=== PATIENT | male | born 1960 | race African-American/Black ===

== ENCOUNTER 2018-12-03 10:04 | Emergency (ER) | payer SELFPAY ==
[~2018-12-03] VITALS: Ht 190.5 cm; Wt 120.2 kg
[~2018-12-03 10:04] MED LIST: AMOX500C2 PO; BIPOLAR MEDS; BNZT2T; BUSP10TA95 PO; BUSPAR; CITA20TA12 PO; DIVA-20; DIVA500T15 PO; GEODON; HYDR-1231 PO; HYDR-34 PO; HYDR-757 PO; HYDR1TAB PO; HYDR1TAB8 OP; HYDR25CA PO; HYDR25CA5 PO; HYDR480S10 GT; IBUP800T26 PO; LORA0.5T; MAGIC1 PO; MOXI400T3 PO; ONDA4TAB11 PO; OXYC-12 PO; OXYC10TA63 PO; PRD20T PO; QTP100T; QUET150T PO; QUET300T3 PO; QUET300T5 PO; SEROQUEL; SIMV10TA3; SULF-222 PO; TRAZ150T42; TRIH2TAB2
--- OUTSIDE RECORDS SUMMARY | 2018-12-03 10:23 | XMS REPORT ---
Author CARLOS A Jerome Organization eClinicalWorks Address Unknown Phone Unavailable Care Team Providers Care Director Workforce Management Name Role Phone CARLOS A PARIS CP Unavailable Allergies No Known Allergies Problems Problem Type Condition Code Onset Dates Condition Status Problem Cellulitis and abscess of unspecified site 682.9 Active Problem Lumbago 724.2 Active Problem Unspecified episodic mood disorder 296.90 Active Medications Medication Code System Code Instructions Start Date End Date Status Dosage Seroquel [facility] [address]-32 300 MG Orally Once a day Apr 23, 2015 1 tablet at bedtime Results No Known Results Summary Purpose eClinicalWorks Submission
--- OUTSIDE RECORDS SUMMARY | 2018-12-03 10:23 | XMS REPORT ---
Author BUD Gustafson [facility] eClinicalWorks Address Unknown Phone Unavailable Care Team Providers Care Trim Machine Operator Name Role Phone BUD WILSON Unavailable Allergies No Known Allergies Problems Problem Type Condition Code Onset Dates Condition Status Problem Depression F32.9 Active Problem Corns L84 Active Problem Anxiety F41.9 Active Problem Back pain M54.9 Active Medications Medication Code System Code Instructions Start Date End Date Status Dosage Tamsulosin HCl [facility] [address]-76 0.4 MG Orally Once a day September 16, 2015 1 capsule 30 minutes after the same meal each day Results No Known Results Summary Purpose eClinicalWorks Submission
--- OUTSIDE RECORDS SUMMARY | 2018-12-03 10:23 | XMS REPORT ---
Author CARLOS A Jerome Organization eClinicalWorks Address Unknown Phone Unavailable Care Team Providers Care Staff Weapons Officer Name Role Phone CARLOS A PARIS CP Unavailable Allergies, Adverse Reactions, Alerts Substance Reaction Event Type N.K.D.A. Info Not Available Non Drug Allergy Problems Problem Type Condition Code Onset Dates Condition Status Problem Cellulitis and abscess of unspecified site 682.9 Active Problem Lumbago 724.2 Active Problem Unspecified episodic mood disorder 296.90 Active Assessment Sciatica, unspecified side M54.30 Active Assessment Anxiety F41.9 Active Assessment Low back pain M54.5 Active Medications Medication Code System Code Instructions Start Date End Date Status Dosage Seroquel [facility] [address]-46 300 MG Orally Twice a day Jun 24, 2015 1 tablet Naproxen [facility] [address]-77 500 MG Orally every 12 hrs Jun 24, 2015 1 tablet as needed Procedures Procedure Coding System Code Date Office Visit, Est Pt., Level 3 CPT-4 84568 Jun 24, 2015 Vital Signs Date/Time: Jun 24, 2015 Temperature 97.3 F Weight 220.2 lbs Height 75 in BMI 27.52 Index Blood Pressure Diastolic 60 mmHg Blood Pressure Systolic 122 mmHg Cardiac Monitoring Heart Rate 80 bpm Results No Known Results Summary Purpose eClinicalWorks Submission
--- OUTSIDE RECORDS SUMMARY | 2018-12-03 10:23 | XMS REPORT ---
Author CARLOS A Jerome Organization eClinicalWorks Address Unknown Phone Unavailable Care Team Providers Care Electric Power Line Examiner Name Role Phone CARLOS A PARIS CP Unavailable Allergies No Known Allergies Problems Problem Type Condition Code Onset Dates Condition Status Problem Cellulitis and abscess of unspecified site 682.9 Active Problem Lumbago 724.2 Active Problem Unspecified episodic mood disorder 296.90 Active Medications No Known Medications Results No Known Results Summary Purpose eClinicalWemoLab Submission
--- OUTSIDE RECORDS SUMMARY | 2018-12-03 10:23 | XMS REPORT ---
Author Author CARLOS A PARIS Organization eClinicalWorks Address Unknown Phone Unavailable Care Team Providers Care Dressing Room Porter Name Role Phone CARLOS A PARIS CP Unavailable Allergies No Known Allergies Problems Problem Type Condition Code Onset Dates Condition Status Problem Cellulitis and abscess of unspecified site 682.9 Active Problem Lumbago 724.2 Active Problem Unspecified episodic mood disorder 296.90 Active Medications No Known Medications Results No Known Results Summary Purpose eClinicalWorks Submission
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
--- OUTSIDE RECORDS SUMMARY | 2018-12-03 10:24 | XMS REPORT ---
Author Author Migration, Doctor Organization [facility] Address Unknown Phone Unavailable Care Team Providers Care Quill Machine Operator Name Role Phone Migration, Doctor Unavailable Unavailable PROBLEMS Type Condition ICD9-CM Code [id number] Code Onset Dates Condition Status SNOMED Code Problem Back pain M54.9 Active 033167989 Problem Corns L84 Active 040304226 Problem Depression F32.9 Active 25385243 Problem Mood disorder F39 Active 07410584 Problem Mixed hyperlipidemia E78.2 Active 177210691 Problem Anxiety F41.9 Active 70818966 Problem Abscess L02.91 Active 696061724 Problem Slow transit constipation K59.01 Active 76535358 Problem GERD with esophagitis K21.0 Active 931140204 ALLERGIES No Information ENCOUNTERS Encounter Location Date Diagnosis [place] [id number] [place] [address] Aug, [facility] [address] [address] Aug, Mixed hyperlipidemia E78.2 and Mood disorder F39 [facility] [id number] [place] [address] Aug, Mixed hyperlipidemia E78.2 ; GERD with esophagitis K21.0 ; Mood disorder F39 and Abscess of axilla, right L02.411 [facility] [address] [address] Jul, Injury of toe on right foot, initial encounter S99.921A [place] [place] [id number] May, Slow transit constipation K59.01 ; Bilateral headaches R51 and Screen for STD (sexually transmitted disease) Z11.3 [facility] [address] [place] [id number] May, Injury of toe on right foot, initial encounter S99.921A ; Unspecified injury of head, sequela S09.90XS ; Post-traumatic headache, unspecified, not intractable G44.309 and Slow transit constipation K59.01 [place] [address] [address] May, Toe pain, right M79.674 [place] [address] [address] May, Back pain M54.9 ; Depression F32.9 and Anxiety F41.9 [place] [address] [address] Mar, [facility] [address] [place] [id number] Dec, Low back pain M54.5 and Other chronic pain G89.[address] [address] September, [place] or callus L84 ; Onychomycosis B35.1 ; Metatarsalgia, right foot M77.41 and Metatarsalgia of left foot M77.42 [place] [address] [address] Aug, Abscess L02.[address] [address] Aug, [place] [address] [address] Aug, Adenopathy R59.1 ; Depression F32.9 ; Anxiety F41.9 and Back pain M54.9 [place] [id number] [place] [address] Jul, [place] [address] [address] Jul, Anxiety F41.9 ; Depression F32.9 ; Corns L84 and Back pain M54.9 [place] [address] [address] Jul, [facility] [address] [address] Jul, [facility] [id number] [place] [address] May, [facility] [id number] [place] [address] May, Anxiety F41.9 ; Low back pain M54.5 and Sciatica, unspecified side M54.30 [facility] [id number] [place] [address] Mar, [facility] [id number] [place] [address] Mar, [facility] [id number] [place] [address] Mar, [facility] [address] [place] [id number] Feb, Anxiety F41.9 and Cutaneous abscess, unspecified L02.91 [facility] [address] [place] [address] Feb, [facility] [id number] [place] [address] Feb, [facility] [address] [place] [id number] Jan, Chest pain 786.50 ; Hypotension 458.9 and Cardiac arrhythmia 427.9 [facility] [address] [place] [address] Dec, Neuropathy 355.9 and Anxiety 300.00 [facility] [address] [address] Aug, [facility] [id number] [place] [address] Aug, [facility] [address] [address] Jul, [facility] [id number] [address] Jul, [facility] [address] [facility] [id number] [address] Jul, [facility] [address] [facility] [id number] [address] Jul, [facility] [address] [facility] [id number] [address] September, [place] [address] [place] [place] [id number] September, [place] [address] [address] [place] [id number] Aug, IMMUNIZATIONS No Known Immunizations SOCIAL HISTORY Never Assessed REASON FOR VISIT [facility]MR[facility] PLAN OF CARE VITAL SIGNS MEDICATIONS Unknown Medications RESULTS No Results PROCEDURES No Known procedures [...]
--- OUTSIDE RECORDS SUMMARY | 2018-12-03 10:25 | XMS REPORT ---
Author Author CARLOS A PARIS [facility] Address [address] [place] [address] Care Team Providers Care Billet Straightener Name Role Phone CARLOS A PARIS Unavailable PROBLEMS Type Condition ICD9-CM Code [id number] Code Onset Dates Condition Status SNOMED Code Problem Slow transit constipation K59.01 Active 27058391 Problem Abscess L02.91 Active 187081891 Problem Depression F32.9 Active 64168380 Problem Back pain M54.9 Active 313514219 Problem Corns L84 Active 436555421 Problem Anxiety F41.9 Active 38050670 ALLERGIES Unknown Allergies SOCIAL HISTORY No smoking Hx information available PLAN OF CARE VITAL SIGNS MEDICATIONS Unknown Medications RESULTS No Results PROCEDURES No Known procedures IMMUNIZATIONS No Known Immunizations
--- OUTSIDE RECORDS SUMMARY | 2018-12-03 10:25 | XMS REPORT ---
Author Author BUD WILSON [facility] eClinicalWorks Address Unknown Phone Unavailable Care Team Providers Care Vice President Of Software Development Name Role Phone BUD WILSON Unavailable Allergies No Known Allergies Problems Problem Type Condition Code Onset Dates Condition Status Problem Anxiety F41.9 Active Problem Depression F32.9 Active Problem Abscess L02.91 Active Problem Corns L84 Active Problem Back pain M54.9 Active Medications No Known Medications Results No Known Results Summary Purpose eClinicalWorks Submission
--- OUTSIDE RECORDS SUMMARY | 2018-12-03 10:25 | XMS REPORT ---
Author CARLOS A Jerome Organization eClinicalWorks Address Unknown Phone Unavailable Care Team Providers Care Beam Press Operator Name Role Phone CARLOS A PARIS CP Unavailable Allergies No Known Allergies Problems Problem Type Condition Code Onset Dates Condition Status Problem Cellulitis and abscess of unspecified site 682.9 Active Problem Lumbago 724.2 Active Problem Unspecified episodic mood disorder 296.90 Active Medications Medication Code System Code Instructions Start Date End Date Status Dosage Hydrocortisone [facility] [address]-20 1 % Externally Twice a day Mar 05, 2015 1 application to affected area Results No Known Results Summary Purpose eClinicalWorks Submission
--- OUTSIDE RECORDS SUMMARY | 2018-12-03 10:25 | XMS REPORT ---
Author CARLOS A Jerome Organization eClinicalWorks Address Unknown Phone Unavailable Care Team Providers Care Helper Animal Laboratory Name Role Phone CARLOS A PARIS CP Unavailable Allergies No Known Allergies Problems Problem Type Condition ICD-9 Code Onset Dates Condition Status Problem Cellulitis and abscess of unspecified site 682.9 Active Problem Lumbago 724.2 Active Problem Unspecified episodic mood disorder 296.90 Active Assessment Cardiac arrhythmia 427.9 Active Assessment Chest pain 786.50 Active Assessment Hypotension 458.9 Active Medications No Known Medications Procedures Procedure Coding System Code Date Office Visit, Est Pt., Level 2 CPT-4 45566 Feb 19, 2015 Vital Signs Date/Time: Feb 19, 2015 BMI 24.50 Index Weight 196 lbs Height 75 in Results No Known Results Summary Purpose eClinicalWorks Submission
--- OUTSIDE RECORDS SUMMARY | 2018-12-03 10:25 | XMS REPORT ---
Author BUD Gustafson [facility] eClinicalWorks Address Unknown Phone Unavailable Care Team Providers Care Peoplesoft Hr Developer Name Role Phone BUD WILSON CP Unavailable Allergies, Adverse Reactions, Alerts Substance Reaction Event Type N.K.D.A. Info Not Available Non Drug Allergy Problems Problem Type Condition Code Onset Dates Condition Status Assessment Back pain M54.9 Active Problem Depression F32.9 Active Problem Corns L84 Active Problem Anxiety F41.9 Active Assessment Depression F32.9 Active Assessment Anxiety F41.9 Active Problem Back pain M54.9 Active Assessment Adenopathy R59.1 Active Medications Medication Code System Code Instructions Start Date End Date Status Dosage Nabumetone [facility] [address]-15 500 MG Orally Twice a day August 15, 2015 1 tablet Keflex [facility] [address]-31 500 MG Orally 3 times a day September 13, 2015 September 23, 2015 1 capsule BusPIRone HCl [facility] [address]-17 10 mg Orally Twice a day 1 tablet Seroquel [facility] [address]-90 300 MG Orally Twice a day Jun 24, 2015 1 tablet Procedures Procedure Coding System Code Date Office Visit, Est Pt., Level 4 CPT-4 96274 September 13, 2015 Vital Signs Date/Time: September 13, 2015 Temperature 98.1 F Weight 208.0 lbs Height 75 in BMI 26.00 Index Blood Pressure Diastolic 76 mmHg Blood Pressure Systolic 140 mmHg Cardiac Monitoring Heart Rate 88 bpm Results No Known Results Summary Purpose eClinicalWorks Submission
--- OUTSIDE RECORDS SUMMARY | 2018-12-03 10:26 | XMS REPORT ---
Author CARLOS A Jerome Organization eClinicalWorks Address Unknown Phone Unavailable Care Team Providers Care Field Sales Executive Name Role Phone CARLOS A PARIS CP Unavailable Allergies, Adverse Reactions, Alerts Substance Reaction Event Type N.K.D.A. Info Not Available Non Drug Allergy Problems Problem Type Condition ICD-9 Code Onset Dates Condition Status Problem Cellulitis and abscess of unspecified site 682.9 Active Problem Lumbago 724.2 Active Problem Unspecified episodic mood disorder 296.90 Active Assessment Neuropathy 355.9 Active Assessment Anxiety 300.00 Active Medications Medication Code System Code Instructions Start Date End Date Status Dosage Neurontin [facility] [address]-32 100 MG Orally Three times a day Jan 18, 2015 as directed Ativan [facility] [address]-51 0.5 MG Orally Twice a day Jan 18, 2015 1 tablet as needed Seroquel XR [facility] [address]-07 300 MG Orally Once a day 1 tablet in the evening Procedures Procedure Coding System Code Date Office Visit, Est Pt., Level 3 CPT-4 60453 Jan 18, 2015 Vital Signs Date/Time: Jan 18, 2015 Temperature 97.7 F Weight 199.5 lbs Height 75 in BMI 24.93 Index Blood Pressure Diastolic 80 mmHg Blood Pressure Systolic 112 mmHg Cardiac Monitoring Heart Rate 88 bpm Results No Known Results Summary Purpose eClinicalWorks Submission
--- OUTSIDE RECORDS SUMMARY | 2018-12-03 10:26 | XMS REPORT ---
Author Author CARLOS A PARIS Organization [facility] Address [address] [place] [address] Care Team Providers Care Attorney Name Role Phone CARLOS A PARIS Unavailable PROBLEMS Type Condition ICD9-CM Code HUN05-AQ Code Onset Dates Condition Status SNOMED Code Problem Slow transit constipation K59.01 Active 91637105 Problem Abscess L02.91 Active 263207110 Problem Depression F32.9 Active 74885164 Problem Back pain M54.9 Active 912035918 Problem Corns L84 Active 182446757 Problem Anxiety F41.9 Active 39047978 ALLERGIES No Information SOCIAL HISTORY Never Assessed PLAN OF CARE VITAL SIGNS MEDICATIONS Unknown Medications RESULTS Name Result Date Reference Range Xray : Foot, Right 3 views (IN HOUSE) 2016-07-16 PROCEDURES Procedure Date Ordered Result Body Site X-RAY EXAM OF FOOT Jul 16, 2016 IMMUNIZATIONS No Known Immunizations MEDICAL (GENERAL) HISTORY Type Description Date Medical [...]
--- OUTSIDE RECORDS SUMMARY | 2018-12-03 10:26 | XMS REPORT ---
Author Author CARLOS A PARIS Organization [facility] Address [address] [place] [address] Care Team Providers Care Warranty Administrator Name Role Phone CARLOS A PARIS Unavailable PROBLEMS Type Condition ICD9-CM Code AUZ49-CW Code Onset Dates Condition Status SNOMED Code Problem Slow transit constipation K59.01 Active 41038649 Problem Abscess L02.91 Active 875700391 Problem Depression F32.9 Active 02258268 Problem Back pain M54.9 Active 720984792 Problem Corns L84 Active 861207850 Problem Anxiety F41.9 Active 66939755 ALLERGIES Unknown Allergies SOCIAL HISTORY No smoking Hx information available PLAN OF CARE Activity Details Pending Test HEP C ANTIBODY (STATE) VITAL SIGNS Height 75 in 2016-06-30 Weight 191 lbs 2016-06-30 Heart Rate 80 bpm 2016-06-30 Respiratory Rate 16 2016-06-30 BMI 23.87 kg/m2 2016-06-30 Blood pressure systolic 110 mmHg 2016-06-30 Blood pressure diastolic 72 mmHg 2016-06-30 MEDICATIONS Unknown Medications RESULTS Name Result Date Reference Range HIV (STATE) 2016-06-30 HEP B SURFACE ANTIGEN (STATE) HEP B ANTIBODY HEP B ANTIBODY (RML) HEP B ANTIBODY (STATE) PROCEDURES Procedure Date Ordered Related Diagnosis Body Site Office Visit, Est Pt., Level 2 Jun 30, 2016 VENIPUNCT, ROUTINE* Jun 30, 2016 No Charge Jun 30, 2016 IMMUNIZATIONS No Known Immunizations
--- OUTSIDE RECORDS SUMMARY | 2018-12-03 10:26 | XMS REPORT ---
Author Author CARLOS A PARIS Organization [facility] Address [address] [place] [address] Care Team Providers Care Telesales Consultant Name Role Phone CARLOS A PARIS Unavailable PROBLEMS Type Condition ICD9-CM Code [id number] Code Onset Dates Condition Status SNOMED Code Problem Slow transit constipation K59.01 Active 55896319 Problem Abscess L02.91 Active 639645545 Problem Depression F32.9 Active 14825333 Problem Back pain M54.9 Active 883655704 Problem Corns L84 Active 608021898 Problem Anxiety F41.9 Active 40362331 ALLERGIES Unknown Allergies SOCIAL HISTORY No smoking Hx information available PLAN OF CARE VITAL SIGNS Height 75 in 2016-06-23 Weight 188 lbs 2016-06-23 Heart Rate 90 bpm 2016-06-23 BMI 23.50 kg/m2 2016-06-23 Blood pressure systolic 100 mmHg 2016-06-23 Blood pressure diastolic 68 mmHg 2016-06-23 MEDICATIONS Medication Instructions Dosage Frequency Start Date End Date Duration Status Colace 100 MG Orally Once a day 1 capsule as needed 24h May, Jul, 30 day(s) Active RESULTS No Results PROCEDURES Procedure Date Ordered Related Diagnosis Body Site Office Visit, Est Pt., Level 2 Jun 23, 2016 IMMUNIZATIONS No Known Immunizations
--- OUTSIDE RECORDS SUMMARY | 2018-12-03 10:26 | XMS REPORT ---
Author BUD Gustafson [facility] eClinicalWorks Address Unknown Phone Unavailable Care Team Providers Care Section Chief Name Role Phone BUD WILSON CP Unavailable Allergies, Adverse Reactions, Alerts Substance Reaction Event Type N.K.D.A. Info Not Available Non Drug Allergy Problems Problem Type Condition Code Onset Dates Condition Status Problem Anxiety F41.9 Active Problem Depression F32.9 Active Problem Abscess L02.91 Active Assessment Abscess L02.91 Active Problem Corns L84 Active Problem Back pain M54.9 Active Medications Medication Code System Code Instructions Start Date End Date Status Dosage Tamsulosin HCl [facility] [address]-99 0.4 MG Orally Once a day September 16, 2015 1 capsule 30 minutes after the same meal each day Keflex [facility] [address]-67 500 MG Orally 3 times a day September 13, 2015 September 23, 2015 1 capsule Seroquel [facility] [address]-12 300 MG Orally Twice a day Jun 24, 2015 1 tablet BusPIRone HCl [facility] [address]-04 10 mg Orally Twice a day 1 tablet Bactrim DS [facility] [address]-02 800-160 MG Orally Twice a day September 20, 2015 September 30, 2015 1 tablet Nabumetone [facility] [address]-49 500 MG Orally Twice a day August 15, 2015 1 tablet Procedures Procedure Coding System Code Date Office Visit, Est Pt., Level 3 CPT-4 97907 September 20, 2015 Vital Signs Date/Time: September 20, 2015 Temperature 97.8 F Weight 201.3 lbs Height 75 in BMI 25.16 Index Blood Pressure Diastolic 71 mmHg Blood Pressure Systolic 105 mmHg Cardiac Monitoring Heart Rate 96 bpm Results No Known Results Summary Purpose eClinicalWorks Submission
--- OUTSIDE RECORDS SUMMARY | 2018-12-03 10:26 | XMS REPORT ---
Author Author CARLOS A PARIS Organization [employer] Address Unknown Phone Unavailable Care Team Providers Care Sap Functional Analyst Name Role Phone CARLOS A PARIS CP Unavailable Allergies No Known Allergies Problems Problem Type Condition Code Onset Dates Condition Status Problem Anxiety F41.9 Active Problem Depression F32.9 Active Problem Abscess L02.91 Active Assessment Low back pain M54.5 Active Assessment Other chronic pain G89.29 Active Problem Corns L84 Active Problem Back pain M54.9 Active Medications No Known Medications Procedures Procedure Coding System Code Date Office Visit, Est Pt., Level 2 CPT-4 87481 Jan 14, 2016 Vital Signs Date/Time: Jan 14, 2016 Cardiac Monitoring Heart Rate 88 bpm Weight 195 lbs Height 75 in BMI 24.37 Index Blood Pressure Diastolic 64 mmHg Blood Pressure Systolic 116 mmHg Results No Known Results Summary Purpose eClinicalWorks Submission
--- OUTSIDE RECORDS SUMMARY | 2018-12-03 10:26 | XMS REPORT ---
Author CARLOS A Jerome Organization [employer] Address Unknown Phone Unavailable Care Team Providers Care Kick Press Operator Name Role Phone CARLOS A PARIS CP Unavailable Allergies No Known Allergies Problems Problem Type Condition Code Onset Dates Condition Status Problem Cellulitis and abscess of unspecified site 682.9 Active Problem Lumbago 724.2 Active Problem Unspecified episodic mood disorder 296.90 Active Medications No Known Medications Results No Known Results Summary Purpose eClinicalT2 Systems Submission
--- OUTSIDE RECORDS SUMMARY | 2018-12-03 10:26 | XMS REPORT ---
Author Author CARLOS A PARIS Organization [facility] Address [address] [place] [address] Care Team Providers Care Gynecological Assistant Name Role Phone CARLOS A PARIS Unavailable PROBLEMS Type Condition ICD9-CM Code [id number] Code Onset Dates Condition Status SNOMED Code Problem Slow transit constipation K59.01 Active 63072282 Problem Abscess L02.91 Active 812269210 Problem Corns L84 Active 627854134 Problem Back pain M54.9 Active 404467832 Problem Anxiety F41.9 Active 43133969 Problem Depression F32.9 Active 96419340 ALLERGIES Unknown Allergies SOCIAL HISTORY No smoking Hx information available PLAN OF CARE VITAL SIGNS MEDICATIONS Medication Instructions Dosage Frequency Start Date End Date Duration Status Nabumetone 500 MG Orally Twice a day 1 tablet 12h Jul, 2 Jul, 2016 30 day(s) Active Tamsulosin HCl 0.4 MG Orally Once a day 1 capsule 30 minutes after the same meal each day 24h Aug, Active BusPIRone HCl 10 mg Orally Twice a day 1 tablet 12h Active Seroquel 300 MG Orally Twice a day 1 tablet 12h May, Active RESULTS No Results PROCEDURES No Known procedures IMMUNIZATIONS No Known Immunizations
--- OUTSIDE RECORDS SUMMARY | 2018-12-03 10:27 | XMS REPORT | Continuity of Care Document ---
Author Organization Unknown Address Unknown Allergies Active Description Code Type Severity Reaction Onset Reported/Identified Relationship to Patient Clinical Status Yes No Known Drug Allergies [id number] Drug Allergy Mild N/A 07/29/2009 Yes No Known Allergies Drug Allergy N/A N/A 05/22/2013 Yes No Known Drug Allergies Drug Allergy N/A N/A 05/22/2013 Yes No Known Food Allergies Food Allergy N/A N/A 05/22/2013 Medications There is no data. Problems Date Dx Coded Attending Type Code Diagnosis Diagnosed By 03/23/2010 Ot 724.2 09/20/2012 296.90 MOOD DISORDER 09/20/2012 682.9 CELLULITIS AND ABSCESS OF UNSPECIFIED SITES 09/20/2012 724.2 BACK PAIN, LOWER 09/20/2012 296.90 MOOD DISORDER 09/20/2012 682.9 CELLULITIS AND ABSCESS OF UNSPECIFIED SITES 09/20/2012 724.2 BACK PAIN, LOWER 11/22/2012 Nate Mancera III, MD Final 597.80 URETHRITIS NOS 11/22/2012 Nate Mancera III, MD Admitting 788.1 DYSURIA 05/01/2013 Freddie Esparza MD Final 098.0 ACUTE LOWER GC INFECT 05/01/2013 Freddie Esparza MD Final 295.30 PARANOID SCHIZ-UNSPEC 05/01/2013 Freddie Esparza MD Final 296.80 BIPOLAR DISORDER NOS 05/01/2013 Freddie Esparza MD Final 305.1 TOBACCO USE DISORDER 05/01/2013 Freddie Esparza MD Admitting 788.7 URETHRAL DISCHARGE 05/22/2013 Colt Vaughn MD Final 305.1 TOBACCO USE DISORDER 05/22/2013 Colt Vaughn MD Final 599.0 URINARY TRACT INF NOS 05/22/2013 Colt Vaughn MD 724.2 LUMBAGO 05/22/2013 Colt Vaughn MD Admitting 789.09 ABDOMINAL PAIN-SITE NEC 02/06/2014 KEMAR GRANGER Ot 724.4 02/06/2014 NURIS POTTS KEMAR Dixon Ot 782.0 03/02/2014 BRANDON THOMAS, DAV A Ot 101 03/02/2014 BRANDON THOMAS, DAV A Ot 305.1 03/02/2014 BRANDON THOMAS, DAV A Ot 722.10 03/02/2014 BRANDON THOMAS, DAV A Ot 784.92 03/03/2014 BRANDON THOMAS, DAV A Ot 525.9 03/03/2014 BRANDON THOMAS, DAV A Ot 528.00 05/10/2014 GELLENDER DO, JOYCE A Ot 782.0 06/01/2014 GELLENDER DO, JOYCE A Ot 789.01 06/01/2014 GELLENDER DO, JOYCE A Ot 789.01 06/01/2014 GELLENDER DO, JOYCE A Ot 787.3 06/01/2014 GELLENDER DO, JOYCE A Ot 789.01 06/01/2014 GELLENDER DO, JOYCE A Ot 789.01 06/01/2014 GELLENDER DO, JOYCE A Ot 782.0 06/01/2014 MICKY LÓPEZ BANK GUARD Ot 682.3 06/01/2014 MICKY LÓPEZ BANK GUARD Ot 785.6 09/25/2014 GELLENDER DO, JOYCE A Ot 789.01 09/25/2014 GELLENDER DO, JOYCE A Ot 789.01 09/25/2014 GELLENDER DO, JOYCE A Ot 787.3 09/25/2014 GELLENDER DO, JOYCE A Ot 789.01 09/25/2014 GELLENDER DO, JOYCE A Ot 789.01 09/25/2014 GELLENDER DO, JOYCE A Ot 782.0 09/25/2014 GELLENDER DO, JOYCE A Ot 789.01 09/25/2014 GELLENDER DO, JOYCE A Ot 789.01 09/25/2014 GELLENDER DO, JOYCE A Ot 787.3 09/25/2014 GELLENDER DO, JOYCE A Ot 789.01 09/25/2014 GELLENDER DO, JOYCE A Ot 789.01 09/25/2014 GELLENDER DO, JOYCE A Ot 782.0 09/25/2014 MORA THOMAS, KANDACE Roesn Ot 296.80 09/25/2014 MORA THOMAS, KANDACE Rosen Ot 305.1 09/25/2014 MORA THOMAS, KANDACE M Ot 872.01 09/25/2014 MORA THOMAS, KANDACE M Ot 911.0 09/25/2014 MORA THOMAS, KANDACE M Ot 914.0 09/25/2014 MORA THOMAS, KANDACE M Ot E000.8 09/25/2014 MORA THOMAS, KANDACE M Ot E849.0 09/25/2014 MORA THOMAS, KANDACE M Ot E968.2 09/25/2014 MORA THOMAS, KANDACE M Ot 296.80 09/25/2014 MORA THOMAS, KANDACE M Ot 305.1 09/25/2014 MORA THOMAS, KANDACE M Ot 872.01 09/25/2014 MORA THOMAS, KANDACE M Ot 911.0 09/25/2014 MORA THOMAS, KANDACE M Ot 914.0 09/25/2014 MORA THOMAS, KANDACE M Ot E000.8 09/25/2014 MORA THOMAS, KANDACE M Ot E849.0 09/25/2014 MORA THOMAS, KANDACE M Ot E968.2 10/05/2014 MICKY LÓPEZ BANK GUARD Ot 719.46 10/05/2014 MICKY LÓPEZ BANK GUARD Ot 959.7 10/05/2014 MICKY LÓPEZ BANK GUARD Ot E000.8 10/05/2014 MICKY LÓPEZ BANK GUARD Ot E849.0 10/05/2014 MICKY LÓPEZ BANK GUARD Ot E960.0 11/04/2014 MICKY LÓPEZ BANK GUARD Ot 729.5 11/04/2014 MICKY LÓPEZ BANK GUARD Ot 915.2 11/04/2014 MICKY LÓPEZ BANK GUARD Ot E928.9 11/12/2014 JOYCE FUCHS DO Ot 787.3 11/12/2014 JOYCE FUCHS DO Ot 789.01 12/26/2014 JOYCE FUCHS DO Ot 724.2 02/19/2015 CARLOS A FELIPE DO Ot 427.61 02/19/2015 CARLOS A FELIPE DO Ot 427.69 02/19/2015 CARLOS A FELIPE DO Ot 786.50 02/19/2015 CARLOS A FELIPE DO Ot 786.59 02/19/2015 CARLOS A FELIPE DO Ot V58.69 02/19/2015 GELLENDER DO, JOYCE Rothman Ot 789.01 02/19/2015 GELLENDER DO, JOYCE Rothman Ot 789.01 02/19/2015 GELLENDER DO, JOYCE Rothman Ot 787.3 02/19/2015 GELLENDER DO, JOYCE Rothman Ot 789.01 02/19/2015 GELLENDER DO, JOYCE Rothman Ot 789.01 02/19/2015 GELLENDER DO, JOYCE Rothman Ot 782.0 02/19/2015 GELLENDER DO, JOYCE Rothman Ot 724.2 08/25/2015 GELLENDER DO, JOYCE Rothman Ot 789.01 08/25/2015 GELLENDER DO, JOYCE Rothman Ot 789.01 08/25/2015 GELLENDER DO, JOYCE Rothman Ot 787.3 08/25/2015 GELLENDER DO, JOYCE Rothman Ot 789.01 08/25/2015 GELLENDER DO, JOYCE Rothman Ot 789.01 08/25/2015 GELLENDER DO, JOYCE Rothman Ot 782.0 08/25/2015 GELLENDER DO, JOYCE Rothman Ot 724.2 08/25/2015 DHIRAJ THOMAS, SAGE Barrientos Ot R11.2 NAUSEA WITH VOMITING, UNSPECIFIED 08/25/2015 DHIRAJ THOMAS, SAGE Barrientos Ot R19.7 DIARRHEA, UNSPECIFIED 08/25/2015 DHIRAJ THOMAS, SAGE Barrientos Ot R51 HEADACHE 08/26/2015 GELLENDER DO, JOYCE Rothman Ot 789.01 08/26/2015 GELLENDER DO, JOYCE Rothman Ot 789.01 08/26/2015 GELLENDER DO, JOYCE Rothman Ot 787.3 08/26/2015 GELLENDER DO, JOYCE Rothman Ot 789.01 08/26/2015 GELLENDER DO, JOYCE Rothman Ot 789.01 08/26/2015 GELLENDER DO, JOYCE Rothman Ot 782.0 08/26/2015 GELLENDER DO, JOYCE Rothman Ot 724.2 08/26/2015 DHIRAJ THOMAS, SAGE Barrientos Ot M79.1 MYALGIA 08/26/2015 DHIRAJ THOMAS, SAGE Barrientos Ot R51 HEADACHE 08/27/2015 DHIRAJ THOMAS, SAGE Barrientos Ot R11.2 08/27/2015 DHIRAJ THOMAS, SAGE Barrientos Ot R19.7 08/27/2015 DHIRAJ THOMAS, SAGE Barrientos Ot R51 Procedures Code [place] [address] CULTURE WOUND (AEROBIC) 09/22/2012 Results Test Result Range LIPID PANEL - 09/20/18 12:36 CHOLESTEROL, TOTAL 203 mg/dL <200 HDL CHOLESTEROL 42 mg/dL >40 TRIGLYCERIDES 197 mg/dL <150 LDL-CHOLESTEROL 127 mg/dL (calc) NRG CHOL/HDLC RATIO 4.8 (calc) <5.0 NON HDL CHOLESTEROL 161 mg/dL (calc) <130 CMP - 09/20/18 12:36 GLUCOSE 108 mg/dL 65-99 UREA NITROGEN (BUN) 12 mg/dL 7-25 CREATININE 1.38 mg/dL 0.70-1.33 eGFR NON-AFR. BRUNEIAN 57 mL/min/1.73m2 > OR=60 eGFR 66 mL/min/1.73m2 > OR=60 BUN/CREATININE RATIO 9 (calc) 6-22 SODIUM 143 mmol/L 135-146 POTASSIUM 4.0 mmol/L 3.5-5.3 CHLORIDE 109 mmol/L 98-110 CARBON DIOXIDE 22 mmol/L 20-32 CALCIUM 8.9 mg/dL 8.6-10.3 PROTEIN, TOTAL 7.0 g/dL 6.1-8.1 ALBUMIN 3.9 g/dL 3.6-5.1 GLOBULIN 3.1 g/dL (calc) 1.9-3.7 ALBUMIN/GLOBULIN RATIO 1.3 (calc) 1.0-2.5 BILIRUBIN, TOTAL 0.5 mg/dL 0.2-1.2 ALKALINE PHOSPHATASE 107 U/L 40-115 AST 17 U/L 10-35 ALT 17 U/L 9-46 CBC - 09/20/18 12:36 WHITE BLOOD CELL COUNT 7.0 Thousand/uL 3.8-10.8 RED BLOOD CELL COUNT 4.55 Million/uL 4.20-5.80 HEMOGLOBIN 12.9 g/dL 13.2-17.1 HEMATOCRIT 38.6 % 38.5-50.0 MCV 84.8 fL 80.0-100.0 MCH 28.4 pg 27.0-33.0 MCHC 33.4 g/dL 32.0-36.0 RDW 13.3 % 11.0-15.0 PLATELET COUNT 249 Thousand/uL 140-400 MPV 11.3 fL 7.5-12.5 ABSOLUTE NEUTROPHILS 4431 cells/uL 4651-0054 ABSOLUTE LYMPHOCYTES 1876 cells/uL 850-3900 ABSOLUTE MONOCYTES 490 cells/uL 200-950 ABSOLUTE EOSINOPHILS 161 cells/uL 15-500 ABSOLUTE BASOPHILS 42 cells/uL 0-200 NEUTROPHILS 63.3 % NRG LYMPHOCYTES 26.8 % NRG MONOCYTES 7.0 % NRG EOSINOPHILS 2.3 % NRG BASOPHILS 0.6 % NRG Encounters ACCT No. Visit Date/Time Discharge Status Pt. Type Provider Facility Loc./Unit Complaint [id number] 11/11/2016 15:36:54 11/11/2016 23:59:59 CLS Outpatient Haris Garcia [id number] 05/22/2013 10:00:00 05/22/2013 12:15:00 DIS Emergency Colt Vaughn MD [facility] [id number] 05/01/2013 15:17:00 05/01/2013 17:25:00 DIS Emergency Freddie Esparza MD [facility] [id number] 11/22/2012 08:03:00 11/22/2012 08:43:00 DIS Emergency Nate Mancera III, MD [facility] [id number] 11/25/2018 14:20:00 11/25/2018 23:59:59 CLS Outpatient CARLOS A PARIS APRN [facility] [id number] 09/20/2018 09:20:00 Document Registration [id number] 08/26/2015 14:00:00 08/26/2015 17:33:00 DIS Emergency SAGE HEARN MD [facility] ER [id number] 08/25/2015 11:18:00 08/25/2015 13:31:00 DIS Emergency SAGE HEARN MD [facility] ER [id number] 02/19/2015 11:40:00 02/19/2015 13:06:00 DIS Emergency CARLOS A FELIPE DO [facility] ER [id number] 12/12/2014 14:55:00 12/12/2014 23:59:59 CLS Outpatient JOYCE FUCHS DO [facility] RAD [id number] 11/04/2014 16:22:00 11/04/2014 16:42:00 DIS Emergency MICKY LÓPEZ BANK GUARD [facility] ER [id number] 10/05/2014 14:02:00 10/05/2014 16:54:00 DIS Emergency MICKY LÓPEZ BANK GUARD [facility] ER [id number] 09/24/2014 23:48:00 09/25/2014 09:06:00 DIS Inpatient MORA THOMAS, KANDACE Rosen [facility] SURGICAL [id number] 06/01/2014 13:48:00 06/01/2014 15:53:00 DIS Emergency MICKY LÓPEZ BANK GUARD [facility] ER [id number] 03/22/2014 11:46:00 03/22/2014 23:59:59 CLS Outpatient JOYCE FUCHS DO [facility] RAD [id number] 03/03/2014 16:24:00 03/03/2014 19:33:00 DIS Emergency DAV TAYLOR MD [facility] ER [id number] 03/02/2014 19:28:00 03/02/2014 20:51:00 DIS Emergency DAV TAYLOR MD [facility] ER [id number] 02/14/2014 10:12:00 02/14/2014 23:59:59 CLS Outpatient JOYCE FUCHS DO [facility] RAD [id number] 02/06/2014 11:06:00 02/06/2014 14:26:00 DIS Emergency KEMAR GRANGER [facility] ER [id number] 09/08/2013 08:59:00 09/08/2013 23:59:59 CLS Outpatient ROSSLENJOYCE WILLOUGHBY DO [facility] RAD [id number] 09/07/2013 11:55:00 09/07/2013 23:59:59 CLS Outpatient ROSSLENJOYCE WILLOUGHBY DO [facility] RAD [id number] 09/04/2013 09:05:00 09/04/2013 23:59:59 CLS Outpatient ROSSLENDER JOYCE BRIAN [facility] RAD [id number] 06/01/2014 13:48:00 Document Registration [id number] 06/01/2014 13:48:00 Document Registration [id number] 06/01/2014 13:48:00 Document Registration [id number] 06/01/2014 13:48:00 Document Registration [id number] 03/23/2010 09:14:00 Document Registration [id number] 10/04/2012 09:57:00 Document Registration [id number] 09/20/2012 09:29:00 Document Registration
--- OUTSIDE RECORDS SUMMARY | 2018-12-03 10:27 | XMS REPORT ---
Author CARLOS A Jerome Organization [employer] Address Unknown Phone Unavailable Care Team Providers Care Internet E Commerce Specialist Name Role Phone CARLOS A PARIS CP Unavailable Allergies No Known Allergies Problems Problem Type Condition Code Onset Dates Condition Status Problem Cellulitis and abscess of unspecified site 682.9 Active Problem Lumbago 724.2 Active Problem Unspecified episodic mood disorder 296.90 Active Medications No Known Medications Results No Known Results Summary Purpose eClinicalSamares Submission
--- OUTSIDE RECORDS SUMMARY | 2018-12-03 10:27 | XMS REPORT ---
Author Author CARLOS A PARIS Organization [employer] Address Unknown Phone Unavailable Care Team Providers Care Supervisor Remelt Name Role Phone CARLOS A PARIS CP Unavailable Allergies No Known Allergies Problems Problem Type Condition Code Onset Dates Condition Status Problem Cellulitis and abscess of unspecified site 682.9 Active Problem Lumbago 724.2 Active Problem Unspecified episodic mood disorder 296.90 Active Assessment Anxiety F41.9 Active Assessment Cutaneous abscess, unspecified L02.91 Active Medications No Known Medications Procedures Procedure Coding System Code Date Office Visit, Est Pt., Level 2 CPT-4 40725 Mar 19, 2015 Vital Signs Date/Time: Mar 19, 2015 Cardiac Monitoring Heart Rate 76 bpm Weight 198 lbs Height 75 in BMI 24.75 Index Blood Pressure Diastolic 64 mmHg Blood Pressure Systolic 116 mmHg Results No Known Results Summary Purpose eClinicalWorks Submission
--- NOTE | 2018-12-03 10:29 | ED Lower Extremity ---
General Chief Complaint: Lower Extremity Stated Complaint: R FOOT PAIN / SWELLING Source: patient History of Present Illness Date Seen by Provider: Dec 03, 2018 Time Seen by Provider: 10:22 Initial Comments PT ARRIVES VIA POV FROM HOME C/O PAIN AND SWELLING TO RIGHT FOOT FOR 3 WEEKS OR MORE PAIN AND SWELLING MOSTLY AROUND FIRST MTP JOINT, GREAT TOE AND ADJACENT AREA TO TOP OF FOOT NO KNOWN INJURY NO HISTORY OF SIMILAR NO PARESTHESIAS OR MOTOR DEFICITS HAS NOT SOUGHT CARE UNTIL TODAY SYMPTOMS NO DIFFERENT TODAY IN ANY WAY HAS NOT TAKEN ANYTHING FOR PAIN AT ANY TIME PCP: SULEMAN-MAURI, ANDREW PARIS Allergies and Home Medications Allergies Coded Allergies: No Known Drug Allergies (Unverified , 07/29/09) Home Medications Hydrocodone Bit/Acetaminophen 1 Each Tablet, 1 EACH PO Q8H Prescribed by: SAGE HEARN on 08/26/15 1720 Methylprednisolone 4 Mg Tab.ds.pk, 4 MG PO UD Prescribed by: CARLY MONTERROSO on 12/03/18 1128 Ondansetron 4 Mg Tab.rapdis, 4 MG PO Q6H PRN for NAUSEA/VOMITING Prescribed by: SAGE HEARN on 08/25/15 1311 Patient Home Medication List Home Medication List Reviewed: Yes Review of Systems Constitutional: no symptoms reported Musculoskeletal: see HPI Skin: no symptoms reported Psychiatric/Neurological: No Symptoms Reported Past Pmdjhgf-Iesdsg-Xqxamn Hx Patient Social History Alcohol Use: Past History (HISTORY OF HEAVY USE, CLAIMS NONE NOW, PER PT ON 12/03/18) Recreational Drug Use: No (DENIES) Smoking Status: Current Everyday Smoker (< 1/2 PPD) Type Used: Cigarettes Recent Foreign Travel: No Contact w/Someone Who Travel: No Seasonal Allergies Seasonal Allergies: No Past Medical History Surgeries: Yes (KELOID REMOVAL; BACK SURGERY) Orthopedic Respiratory: No Cardiac: Yes High Cholesterol, Irregular Heartbeat Neurological: No Reproductive Disorders: No Genitourinary: No Gastrointestinal: No Musculoskeletal: Yes (BACK SURGERY) Chronic Back Pain Endocrine: No HEENT: No Cancer: No Psychosocial: Yes Bipolar, Depression Integumentary: No Blood Disorders: No Family Medical History Patient reports no known family medical history. No Pertinent Family Hx Physical Exam Vital Signs Vital Signs - First Documented 12/03/18 10:21 Temp 96.1 Pulse 95 Resp 14 B/P (MAP) 120/99 (106) Pulse Ox 97 O2 Delivery Room Air Capillary Refill : Height, Weight, BMI Height: 6'3" Weight: 205lbs. oz. 92.379759zl; 25.62 BMI Method:Stated General Appearance: WD/WN, no apparent distress Legs: bilateral leg normal inspection Ankles: bilateral ankle normal inspection Feet: left foot normal inspection; right foot other (TENDERNESS, SLIGHT SWELLING TO RIGHT FIRST MTP JOINT. NO ERYTHEMA OR WARMTH, NO WOUNDS) Neurologic/Tendon: normal sensation, normal motor functions, normal tendon functions Neurologic/Psychiatric: tailer in II-XII nml as tested, no motor/sensory deficits, alert, normal mood/affect, oriented x 3 Skin: normal color (PT IS BLACK), warm/dry Progress/Results/Core Measures Results/Orders Lab Results Laboratory Tests Test 12/03/18 11:32 Range/Units White Blood Count 5.8 4.3-11.0 10^3/uL Red Blood Count 4.94 4.35-5.85 10^6/uL Hemoglobin 13.6 13.3-17.7 G/DL Hematocrit 40 40-54 % Mean Corpuscular Volume 81 80-99 FL Mean Corpuscular Hemoglobin 28 25-34 PG Mean Corpuscular Hemoglobin Concent 34 32-36 G/DL Red Cell Distribution Width 13.6 10.0-14.5 % Platelet Count 258 130-400 10^3/uL Mean Platelet Volume 10.8 H 7.4-10.4 FL Neutrophils (%) (Auto) 63 42-75 % Lymphocytes (%) (Auto) 30 12-44 % Monocytes (%) (Auto) 5 0-12 % Eosinophils (%) (Auto) 2 0-10 % Basophils (%) (Auto) 0 0-10 % Neutrophils # (Auto) 3.7 1.8-7.8 X 10^3 Lymphocytes # (Auto) 1.7 1.0-4.0 X 10^3 Monocytes # (Auto) 0.3 0.0-1.0 X 10^3 Eosinophils # (Auto) 0.1 0.0-0.3 10^3/uL Basophils # (Auto) 0.0 0.0-0.1 10^3/uL Erythrocyte Sedimentation Rate 45 H 0-30 MM/HR Sodium Level 142 135-145 MMOL/L Potassium Level 3.9 3.6-5.0 MMOL/L Chloride Level 112 H 98-107 MMOL/L Carbon Dioxide Level 20 L 21-32 MMOL/L Anion Gap 10 5-14 MMOL/L Blood Urea Nitrogen 10 7-18 MG/DL Creatinine 1.35 H 0.60-1.30 MG/DL Estimat Glomerular Filtration Rate > 60 BUN/Creatinine Ratio 7 Glucose Level 110 H 70-105 MG/DL Uric Acid 10.9 H 2.6-7.2 MG/DL Calcium Level 9.2 8.5-10.1 MG/DL Corrected Calcium 9.1 8.5-10.1 MG/DL Total Bilirubin 0.5 0.1-1.0 MG/DL Aspartate Amino Transf (AST/SGOT) 13 5-34 U/L Alanine Aminotransferase (ALT/SGPT) 13 0-55 U/L Alkaline Phosphatase 110 40-136 U/L Total Protein 7.7 6.4-8.2 GM/DL Albumin 4.1 3.2-4.5 GM/DL My Orders Orders - CARLY MONTERROSO DO Foot, Right, 3 View (12/03/18 10:25) Cbc With Automated Diff (12/03/18 11:24) Comprehensive Metabolic Panel (12/03/18 11:24) Erythrocyte Sedimentation Rate (12/03/18 11:24) Uric Acid (12/03/18 11:24) Vital Signs/I&O 12/03/18 12/03/18 10:21 11:39 Temp 96.1 Pulse 95 107 Resp 14 15 B/P (MAP) 120/99 (106) 122/99 (107) Pulse Ox 97 99 O2 Delivery Room Air Room Air Diagnostic Imaging Comments XRAYS RIGHT FOOT--NO ACUTE PROCESS, DEGENERATIVE CHANGES, ESPECIALLY AROUND IP JOINT OF GREAT TOE AND FIRST MTP JOINT. CALCANEAL SPUR-PER RADIOLOGIST REPORT AT 1120 Reviewed: Reviewed by Me Departure Impression Primary Impression: PAIN AND SWELLING OF RIGHT FIRST MTP JOINT Additional Impression: POSSIBLE GOUT Disposition: 01 HOME, SELF-CARE Condition: Stable Departure-Patient Inst. Referrals: [facility] (PCP/Family) Primary Care Physician Patient Instructions: Gout (DC), Metatarsalgia (DC) Add. Discharge Instructions: WARM EPSOM SALTS SOAKS 2-3 TIMES A DAY FOLLOW UP WITH YOUR DR NEXT WEEK FOR FURTHER CARE All discharge instructions reviewed with patient and/or family. Voiced understanding. Scripts Colchicine (Colchicine) 0.6 Mg Capsule 0.6 MG PO UD, #10 CAP Prov: CARLY MONTERROSO DO 12/03/18 Methylprednisolone (Medrol) 4 Mg Tab.ds.pk 4 MG PO UD, #1 PKG Prov: CARLY MONTERROSO DO 12/03/18 CARLY MONTERROSO DO Dec 03, 2018 10:29
--- NOTE | 2018-12-03 11:10 | Diagnostic Imaging Report ---
INDICATION: Medial right foot pain for 3 weeks. COMPARISON: None. DISCUSSION: Three views of the right foot were obtained. Small calcaneal enthesophytes are noted. Early bunion formation is present. Mild degenerative disease is noted within the first MTP joint and first interphalangeal joint. No fracture or dislocation. Alignment is anatomic. Soft tissues are unremarkable. No radiopaque foreign body. IMPRESSION: 1. Chronic changes of the right foot as discussed. No acute fracture identified. Dictated by: Dictated on workstation # [id number]
[2018-12-03] MEDS ORDERED: METH4TAB PO (11:28)
[2018-12-03 11:37] LABS: BASOPHILS % (AUTO) 0 % (0-10); EOSINOPHILS # (AUTO) 0.1 10^3/uL (0.0-0.3); EOSINOPHILS % (AUTO) 2 % (0-10); HEMATOCRIT 40 % (40-54); HEMOGLOBIN 13.6 G/DL (13.3-17.7); LYMPHOCYTES # (AUTO) 1.7 X 10^3 (1.0-4.0); LYMPHOCYTES % (AUTO) 30 % (12-44); MEAN CORPUSCULAR HEMOGLOBIN 28 PG (25-34); MEAN CORPUSCULAR HGB CONC 34 G/DL (32-36); MEAN CORPUSCULAR VOLUME 81 FL (80-99); MEAN PLATELET VOLUME 10.8 FL (7.4-10.4); MONOCYTES # (AUTO) 0.3 X 10^3 (0.0-1.0); MONOCYTES % (AUTO) 5 % (0-12); NEUTROPHILS # (AUTO) 3.7 X 10^3 (1.8-7.8); NEUTROPHILS % (AUTO) 63 % (42-75); PLATELET COUNT 258 10^3/uL (130-400); RED CELL DISTRIBUTION WIDTH 13.6 % (10.0-14.5); WHITE BLOOD COUNT 5.8 10^3/uL (4.3-11.0)
[2018-12-03 11:39] VITALS: BP 122/99
[2018-12-03 11:56] LABS: ALANINE AMINOTRANSFERASE 13 U/L (0-55); ALBUMIN 4.1 GM/DL (3.2-4.5); ALKALINE PHOSPHATASE 110 U/L (40-136); BILIRUBIN,TOTAL 0.5 MG/DL (0.1-1.0); BUN/CREATININE RATIO 7; CALCIUM 9.2 MG/DL (8.5-10.1); CARBON DIOXIDE 20 MMOL/L (21-32); CHLORIDE 112 MMOL/L (98-107); CREATININE SERUM 1.35 MG/DL (0.60-1.30); GFR ESTIMATED > 60; GLUCOSE 110 MG/DL (70-105); POTASSIUM 3.9 MMOL/L (3.6-5.0); SODIUM 142 MMOL/L (135-145); TOTAL PROTEIN 7.7 GM/DL (6.4-8.2); URIC ACID 10.9 MG/DL (2.6-7.2)
[2018-12-03 12:00] LABS: ERYTHROCYTE SEDIMENTATION RATE 45 MM/HR (0-30)
[2018-12-03] MEDS ORDERED: COLC0.6C3 PO (12:45)
== END 2018-12-03 11:39 | disposition home or self-care (01) ==
LOC: EDUNIT# 10:04 → ER 10:05
DX: M25.441 Effusion, right hand (principal); F31.9 Bipolar disorder, unspecified; E78.00 Pure hypercholesterolemia, unspecified; F17.210 Nicotine dependence, cigarettes, uncomplicated
CPT/HCPCS: 36415; 73630; 80053; 84550; 85025; 85652

== ENCOUNTER 2019-05-02 13:59 | Emergency (ER) | payer MEDICAID ==
[~2019-05-02] VITALS: Ht 185 cm; Wt 118.1 kg
[~2019-05-02 13:59] MED LIST changes: +COLC0.6C3 PO; +METH4TAB PO
--- NOTE | 2019-05-02 14:13 | ED Dyspnea ---
General Chief Complaint: Abdominal/GI Problems Stated Complaint: SOA Source of Information: Patient Exam Limitations: No Limitations History of Present Illness Date Seen by Provider: May 02, 2019 Time Seen by Provider: 14:11 Initial Comments To ER by Private vehicle from home with reports of shortness of breath x2-3 days. No fevers no chills no cough no chest pain. Denies any known cause. Does report some anxiety as well. Timing/Duration: Other (2-3 days) Severity: Moderate Activities at Onset: None Associated Symptoms: Denies Symptoms Allergies and Home Medications Allergies Coded Allergies: No Known Drug Allergies (Unverified , 07/29/09) Home Medications Colchicine 0.6 Mg Capsule, 0.6 MG PO UD Prescribed by: CARLY MONTERROSO on 12/03/18 1245 Hydrocodone Bit/Acetaminophen 1 Each Tablet, 1 EACH PO Q8H Prescribed by: SAGE HEARN on 08/26/15 1720 Methylprednisolone 4 Mg Tab.ds.pk, 4 MG PO UD Prescribed by: CARLY MONTERROSO on 12/03/18 1128 Ondansetron 4 Mg Tab.rapdis, 4 MG PO Q6H PRN for NAUSEA/VOMITING Prescribed by: SGAE HEARN on 08/25/15 1311 Patient Home Medication List Home Medication List Reviewed: Yes Review of Systems Review of Systems Constitutional: see HPI EENTM: see HPI Respiratory: no symptoms reported Cardiovascular: no symptoms reported Genitourinary: no symptoms reported Musculoskeletal: no symptoms reported Skin: no symptoms reported Psychiatric/Neurological: No Symptoms Reported Endocrine: No Symptoms Reported Past Twrnkbx-Cjsacw-Desjua Hx Patient Social History Type Used: Cigarettes Seasonal Allergies Seasonal Allergies: No Past Medical History Surgeries: Yes (KELOID REMOVAL; BACK SURGERY) Orthopedic Respiratory: No Cardiac: Yes High Cholesterol, Irregular Heartbeat Neurological: No Reproductive Disorders: No Sexually Transmitted Disease: No HIV/AIDS: No Genitourinary: No Gastrointestinal: No Musculoskeletal: Yes (BACK SURGERY) Chronic Back Pain Endocrine: No HEENT: No Hearing Impairment: Denies Cancer: No Psychosocial: Yes Bipolar, Depression Integumentary: No Blood Disorders: No Family Medical History Patient reports no known family medical history. No Pertinent Family Hx Physical Exam Vital Signs Vital Signs - First Documented 05/02/19 13:59 Temp 36.2 Pulse 113 Resp 25 B/P (MAP) 122/85 (97) Pulse Ox 99 O2 Delivery Room Air Capillary Refill : Height, Weight, BMI Height: 6'3.00" Weight: 265lbs. oz. 120.751244gi; 25.62 BMI Method:Stated General Appearance: No Apparent Distress, WD/WN, Anxious HEENT: PERRL/EOMI, TMs Normal Neck: Full Range of Motion, Normal Inspection Respiratory: Normal Breath Sounds, No Accessory Muscle Use, No Respiratory Distress, Other (tachypneic) Cardiovascular: Normal Peripheral Pulses, Tachycardia Extremity: Normal Capillary Refill, Normal Inspection, No Pedal Edema Neurologic/Psychiatric: Alert, Oriented x3, No Motor/Sensory Deficits Skin: Normal Color, Warm/Dry Other comments Very intense odor similar to that of cat Urine--denies methamphetamine use Progress/Results/Core Measures Results/Orders Lab Results Laboratory Tests Test 05/02/19 14:05 05/02/19 14:30 05/02/19 14:47 Range/Units White Blood Count 10.7 4.3-11.0 10^3/uL Red Blood Count 5.36 4.35-5.85 10^6/uL Hemoglobin 15.1 13.3-17.7 G/DL Hematocrit 44 40-54 % Mean Corpuscular Volume 82 80-99 FL Mean Corpuscular Hemoglobin 28 25-34 PG Mean Corpuscular Hemoglobin Concent 35 32-36 G/DL Red Cell Distribution Width 14.3 10.0-14.5 % Platelet Count 411 H 130-400 10^3/uL Mean Platelet Volume 10.7 H 7.4-10.4 FL Neutrophils (%) (Auto) 62 42-75 % Lymphocytes (%) (Auto) 24 12-44 % Monocytes (%) (Auto) 13 H 0-12 % Eosinophils (%) (Auto) 1 0-10 % Basophils (%) (Auto) 0 0-10 % Neutrophils # (Auto) 6.6 1.8-7.8 X 10^3 Lymphocytes # (Auto) 2.6 1.0-4.0 X 10^3 Monocytes # (Auto) 1.4 H 0.0-1.0 X 10^3 Eosinophils # (Auto) 0.1 0.0-0.3 10^3/uL Basophils # (Auto) 0.0 0.0-0.1 10^3/uL Urine Color EMERITA H Urine Clarity CLEAR Urine pH 5.5 5-9 Urine Specific Coulter 1.015 L 1.016-1.022 Urine Protein NEGATIVE NEGATIVE Urine Glucose (UA) TRACE H NEGATIVE Urine Ketones TRACE H NEGATIVE Urine Nitrite NEGATIVE NEGATIVE Urine Bilirubin 1+ H NEGATIVE Urine Urobilinogen 2.0 < = 1.0 MG/DL Urine Leukocyte Esterase NEGATIVE NEGATIVE Urine RBC (Auto) NEGATIVE NEGATIVE Urine RBC NONE /HPF Urine WBC 0-2 /HPF Urine Squamous Epithelial Cells 0-2 /HPF Urine Crystals NONE /LPF Urine Bacteria TRACE /HPF Urine Casts NONE /LPF Urine Mucus NEGATIVE /LPF Urine Culture Indicated NO Urine Opiates Screen NEGATIVE NEGATIVE Urine Oxycodone Screen NEGATIVE NEGATIVE Urine Methadone Screen NEGATIVE NEGATIVE Urine Propoxyphene Screen NEGATIVE NEGATIVE Urine Barbiturates Screen NEGATIVE NEGATIVE Ur Tricyclic Antidepressants Screen POSITIVE H NEGATIVE Urine Phencyclidine Screen NEGATIVE NEGATIVE Urine Amphetamines Screen NEGATIVE NEGATIVE Urine Methamphetamines Screen POSITIVE H NEGATIVE Urine Benzodiazepines Screen NEGATIVE NEGATIVE Urine Cocaine Screen NEGATIVE NEGATIVE Urine Cannabinoids Screen NEGATIVE NEGATIVE D-Dimer 3.44 H 0.00-0.49 UG/ML Sodium Level 139 135-145 MMOL/L Potassium Level 3.8 3.6-5.0 MMOL/L Chloride Level 100 98-107 MMOL/L Carbon Dioxide Level 21 21-32 MMOL/L Anion Gap 18 H 5-14 MMOL/L Blood Urea Nitrogen 21 H 7-18 MG/DL Creatinine 1.61 H 0.60-1.30 MG/DL Estimat Glomerular Filtration Rate 54 BUN/Creatinine Ratio 13 Glucose Level 105 70-105 MG/DL Calcium Level 9.2 8.5-10.1 MG/DL Corrected Calcium 9.3 8.5-10.1 MG/DL Total Bilirubin 1.4 H 0.1-1.0 MG/DL Aspartate Amino Transf (AST/SGOT) 48 H 5-34 U/L Alanine Aminotransferase (ALT/SGPT) 60 H 0-55 U/L Alkaline Phosphatase 87 40-136 U/L Troponin I < 0.028 <0.028 NG/ML B-Type Natriuretic Peptide < 10.0 <100.0 PG/ML Total Protein 7.6 6.4-8.2 GM/DL Albumin 3.9 3.2-4.5 GM/DL My Orders Orders - MICKY LÓPEZ WINCHMAN/CRANE OPERATOR Ua Culture If Indicated (05/02/19 14:09) Drug Screen Stat (Urine) (05/02/19 14:09) Cbc With Automated Diff (05/02/19 14:09) Comprehensive Metabolic Panel (05/02/19 14:09) Troponin I (05/02/19 14:09) BNP (05/02/19 14:09) Ed Iv/Invasive Line Start (05/02/19 14:09) Ekg Tracing (05/02/19 14:09) Chest 1 View, Ap/Pa Only (05/02/19 14:09) Lorazepam Injection (Ativan Injection) (05/02/19 14:15) Fibrin Degradation Products (05/02/19 14:15) Ct Angio Chest W (05/02/19 15:35) Lactated Ringers (Lr 1000 Ml Iv Solution (05/02/19 15:45) General/Regular (05/02/19 Lunch) Iohexol Injection (Omnipaque 350 Mg/Ml 1 (05/02/19 17:00) Received Contrast (Hold Metformin- Contr (05/02/19 17:00) Ns (Ivpb) (Sodium Chloride 0.9% Ivpb Bag (05/02/19 17:00) Ns Iv 500 Ml (Sodium Chloride 0.9%) (05/02/19 18:00) Medications Given in ED Current Medications Medications Dose Ordered Sig/Bam Route Start Time Stop Time Status Last Admin Dose Admin Iohexol 100 ml ONCE ONCE IV 05/02/19 17:00 05/02/19 17:01 DC 05/02/19 17:44 100 ML Lorazepam 1 mg ONCE PRN IVP 05/02/19 14:15 05/02/19 18:50 DC 05/02/19 14:15 1 MG Sodium Chloride 100 ml ONCE ONCE IV 05/02/19 17:00 05/02/19 17:01 DC 05/02/19 17:44 100 ML Vital Signs/I&O 05/02/19 05/02/19 13:59 18:40 Temp 36.2 36.2 Pulse 113 101 Resp 25 18 B/P (MAP) 122/85 (97) 102/92 (97) Pulse Ox 99 94 O2 Delivery Room Air Room Air Diagnostic Imaging Diagonstic Imaging: Xray, CT Comments NAME: FERDINAND ARAUJO JR [facility] REC#: [id number] PT STATUS: REG ER : 1960 PHYSICIAN: MICKY LÓPEZ APRN ADMIT DATE: 05/02/19/ER Draft POSDate of Exam:05/02/19 CHEST 1 VIEW, AP/PA ONLY INDICATION: Chest pain. COMPARISON: 02/19/2015. FINDINGS: Given AP portable upright technique, no change from prior. No focal infiltrate, effusion, or pneumothorax. Body habitus results in some attenuation artifacts at the lung bases. There may be trace atelectasis on the right. IMPRESSION: No acute finding apparent. Dictated on workstation # [id number] Dict: 05/02/19 1436 Trans: 05/02/19 1441 [id number] Interpreted by: ANAI STRINGER Electronically signed by: NAME: FERDINAND ARAUJO JR [facility] REC#: [id number] PT STATUS: REG ER : 1960 PHYSICIAN: MICKY LÓPEZ APRN ADMIT DATE: 05/02/19/ER Draft POSDate of Exam:05/02/19 CT ANGIO CHEST W PROCEDURE: CT angiography of the chest with contrast. TECHNIQUE: Multiple contiguous axial images were obtained through the chest after uneventful bolus administration of intravenous contrast. 3D reconstructed CTA MIP acquisitions were also performed. Auto Exposure Controls were utilized during the CT exam to meet ALARA standards for radiation dose reduction. INDICATION: Shortness of air and chest pain. There is good pulmonary arterial opacification. No filling defects are seen to suggest pulmonary emboli. Thoracic aorta is normal caliber. No dissection is seen. No pericardial fluid is identified. There appears to be trace right and left side pleural effusion. Parenchymal evaluation does show some atelectasis or consolidation in the medial aspect of the right middle lobe. Subsegmental atelectasis bilateral lower lobes is noted. Upper abdomen is unremarkable. IMPRESSION: 1. No evidence of pulmonary embolism or thoracic aortic dissection. 2. Mild atelectasis or infiltrate in the right middle lobe. 3. No other significant abnormality is detected. Dictated on workstation # [id number] Dict: 05/02/19 1745 Trans: 05/02/19 1750 [facility] [id number] Interpreted by: TAMELA PATEL MD Electronically signed by: Departure Communication (Admissions) complete resolution of symptoms prior to discharge after 1mg IV ativan and a meal tray. Impression Primary Impression: Dyspnea Additional Impressions: Anxiety Methamphetamine abuse Disposition: 01 HOME, SELF-CARE Condition: Improved Departure-Patient Inst. Decision time for Depature: 17:59 Referrals: [facility] (PCP/Family) Primary Care Physician Patient Instructions: Shortness of Breath (Dyspnea) Add. Discharge Instructions: Return to ER for any concerns 2. Follow-up with your doctor next week 3. All discharge instructions reviewed with patient and/or family. Voiced understanding. MICKY LÓPEZ WINCHMAN/CRANE OPERATOR May 02, 2019 14:12 POS
[2019-05-02] MEDS ORDERED: LORazepam INJ 2 MG/ML (ATIVAN) VIAL IVP PRN (14:15)
[2019-05-02 14:20] LABS: BASOPHILS % (AUTO) 0 % (0-10); EOSINOPHILS # (AUTO) 0.1 10^3/uL (0.0-0.3); EOSINOPHILS % (AUTO) 1 % (0-10); HEMATOCRIT 44 % (40-54); HEMOGLOBIN 15.1 G/DL (13.3-17.7); LYMPHOCYTES # (AUTO) 2.6 X 10^3 (1.0-4.0); LYMPHOCYTES % (AUTO) 24 % (12-44); MEAN CORPUSCULAR HEMOGLOBIN 28 PG (25-34); MEAN CORPUSCULAR HGB CONC 35 G/DL (32-36); MEAN CORPUSCULAR VOLUME 82 FL (80-99); MEAN PLATELET VOLUME 10.7 FL (7.4-10.4); MONOCYTES # (AUTO) 1.4 X 10^3 (0.0-1.0); MONOCYTES % (AUTO) 13 % (0-12); NEUTROPHILS # (AUTO) 6.6 X 10^3 (1.8-7.8); NEUTROPHILS % (AUTO) 62 % (42-75); PLATELET COUNT 411 10^3/uL (130-400); RED CELL DISTRIBUTION WIDTH 14.3 % (10.0-14.5); WHITE BLOOD COUNT 10.7 10^3/uL (4.3-11.0)
[2019-05-02 14:39] LABS: BILIRUBIN,URINE 1+ (NEGATIVE); CLARITY,URINE CLEAR; COLOR,URINE AMBER; GLUCOSE, URINE (UA) TRACE (NEGATIVE); KETONES,URINE TRACE (NEGATIVE); LEUKOCYTE ESTERASE ,URINE NEGATIVE (NEGATIVE); NITRITE,URINE NEGATIVE (NEGATIVE); PH,URINE 5.5 (5-9); PROTEIN,URINE NEGATIVE (NEGATIVE)
--- NOTE | 2019-05-02 14:42 | Diagnostic Imaging Report ---
INDICATION: Chest pain. COMPARISON: 02/19/2015. FINDINGS: Given AP portable upright technique, no change from prior. No focal infiltrate, effusion, or pneumothorax. Body habitus results in some attenuation artifacts at the lung bases. There may be trace atelectasis on the right. IMPRESSION: No acute finding apparent. Dictated by: Dictated on workstation # [id number]
[2019-05-02 14:50] LABS: BACTERIA,URINE TRACE /HPF; SQUAMOUS EPITHELIAL CELL,UR 0-2 /HPF; WBC,URINE 0-2 /HPF
[2019-05-02 14:51] LABS: AMPHETAMINE SCREEN, URINE NEGATIVE (NEGATIVE); BARBITURATE SCREEN URINE NEGATIVE (NEGATIVE); BENZODIAZEPINES SCREEN URINE NEGATIVE (NEGATIVE); CANNABINOID SCREEN, URINE NEGATIVE (NEGATIVE); COCAINE SCREEN URINE NEGATIVE (NEGATIVE); METHADONE STAT NEGATIVE (NEGATIVE); METHAMPHETAMINE SCREEN URINE S POSITIVE (NEGATIVE); OPIATE SCREEN URINE NEGATIVE (NEGATIVE); TRICYCLIC ANTIDEPRESSANTS SCRE POSITIVE (NEGATIVE)
[2019-05-02 14:52] LABS: OXYCODONE STAT NEGATIVE (NEGATIVE); PROPOXYPHENE STAT NEGATIVE (NEGATIVE)
[2019-05-02 15:19] LABS: ALANINE AMINOTRANSFERASE 60 U/L (0-55); ALBUMIN 3.9 GM/DL (3.2-4.5); ALKALINE PHOSPHATASE 87 U/L (40-136); BILIRUBIN,TOTAL 1.4 MG/DL (0.1-1.0); BUN/CREATININE RATIO 13; CALCIUM 9.2 MG/DL (8.5-10.1); CARBON DIOXIDE 21 MMOL/L (21-32); CHLORIDE 100 MMOL/L (98-107); CREATININE SERUM 1.61 MG/DL (0.60-1.30); GFR ESTIMATED 54; GLUCOSE 105 MG/DL (70-105); POTASSIUM 3.8 MMOL/L (3.6-5.0); SODIUM 139 MMOL/L (135-145); TOTAL PROTEIN 7.6 GM/DL (6.4-8.2)
[2019-05-02] MEDS ORDERED: LACTATED RINGERS 1,000 ML IV SCH (15:45)
[2019-05-02] MEDS ORDERED: NS 100 ML (IVPB) BAG IV ONE (17:00)
[2019-05-02] MEDS ORDERED: IOHEXOL 350 MG/ML 100 ML (OMNIPAQUE 350) VIAL IV ONE (17:00)
[2019-05-02] MEDS ORDERED: HOLD METFORMIN - RECEIVED CONTRAST 20 ML VIAL IV SCH (17:00)
--- NOTE | 2019-05-02 17:20 | NUR ---
Ct called and informed that pt's fluids are done.
--- NOTE | 2019-05-02 17:51 | Diagnostic Imaging Report ---
PROCEDURE: CT angiography of the chest with contrast. TECHNIQUE: Multiple contiguous axial images were obtained through the chest after uneventful bolus administration of intravenous contrast. 3D reconstructed CTA MIP acquisitions were also performed. Auto Exposure Controls were utilized during the CT exam to meet ALARA standards for radiation dose reduction. INDICATION: Shortness of air and chest pain. There is good pulmonary arterial opacification. No filling defects are seen to suggest pulmonary emboli. Thoracic aorta is normal caliber. No dissection is seen. No pericardial fluid is identified. There appears to be trace right and left side pleural effusion. Parenchymal evaluation does show some atelectasis or consolidation in the medial aspect of the right middle lobe. Subsegmental atelectasis bilateral lower lobes is noted. Upper abdomen is unremarkable. IMPRESSION: 1. No evidence of pulmonary embolism or thoracic aortic dissection. 2. Mild atelectasis or infiltrate in the right middle lobe. 3. No other significant abnormality is detected. Dictated by: Dictated on workstation # [id number]
[2019-05-02] MEDS: NS IV 500 ML 500 ML IV SCH ×2 (18:10→18:48)
[2019-05-02 18:40] VITALS: BP 102/92
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
--- OUTSIDE RECORDS SUMMARY | 2019-05-27 22:11 | XMS REPORT ---
Author Author CristalSimone Colt GARZA Organization [facility] Address [address] [place] [address], [place] [id number] Care Team Providers Care Christian Counselor Name Role Phone GREG Humphries Unavailable PROBLEMS Type Condition ICD9-CM Code MEM69-FB Code Onset Dates Condition S tatus SNOMED Code Problem Back pain M54.9 Active 008479461 Problem Depression F32.9 Active 59111297 Problem Anxiety F41.9 Active 82120479 Problem GERD with esophagitis K21.0 Active 125339654 Problem Corns L84 Active 661414495 Problem Gastroesophageal reflux disease with esophagitis K 21.0 Active 817655887 Problem Abscess L02.91 Active 107121849 Problem Slow transit constipation K59.01 Acti ve 42082046 Problem Mixed hyperlipidemia E78.2 Active 123358350 Problem Mood disorder F39 Active 008528 05 ALLERGIES No Information ENCOUNTERS Encounter Location Date Diagnosis [place] [address] [phone] Dec, [place] [address] [address] Oct, Gastroesophageal reflux dise ase with esophagitis K21.0 [facility] [address] [place] [id number] [address] [place] [phone] Aug, [facility] [address] [place] [id number] [place] [phone] Aug, Mixed hyperlipidemia E78.2 a nd Mood disorder F39 [facility] [address] [place] [id number] [place] [phone] Aug, Mixed hyperlipidemia E78.2 ; GERD with esophagitis K21.0 ; Mood disorder F39 and Abscess of axilla, right L02.411 [place] [address] [place] [id number] [place] [address] Jul, Injury of toe on right foot, initial encounter S99.921A [address] [id number] May, Slow transit constipation K59.01 ; Bilateral headaches R51 and Screen for STD (sexually transmitted disease) Z11.[address] [id number] May, Injury of toe on right foot, initial encounter S99.921A ; Unspecified injury of head, sequela S09.90XS ; Post-traumatic headache, unspecified, not intractable G44.309 and Slow transit constipation K59.[address] [address] May, Toe pain, right M79.674 [address] [place] [address] May, Back pain M54.9 ; Depression F32.9 and Anxiety F41.9 [place] [id number] [place] [address] Mar, [address] [id number] Dec, Low back pain M54.5 and Other chronic pain G89.29 [place] [id number] [place] [phone] September, Edon or callus L84 ; Onychom ycosis B35.1 ; Metatarsalgia, right foot M77.41 and Metatarsalgia of left foot M77.42 [place] [address] [place] [id number] [place] [address] Aug, Abscess L02.91 [place] [id number] [place] [phone] Aug, [place] [address] [place] [id number] [place] [phone] Aug, Adenopathy R59.1 ; Depressio n F32.9 ; Anxiety F41.[address]9 [facility] [address] [id number] [address] [place] [phone] Jul, [facility] [address] [id number] [address] [place] [phone] Jul, Anxiety F41.9 ; Depression F 32.9 ; Corns L84 and Back pain M54.9 [facility] [address] [id number] [address] [place] [phone] Jul, [facility] [address] [id number] [address] [place] [phone] Jul, [facility] [address] [id number] [address] [place] [phone] May, [facility] [address] [facility] [id number] [address] [place] [phone] May, Anxiety F41.9 ; Low back julio n M54.5 and Sciatica, unspecified side M54.30 [facility] [address] [id number] [address] [place] [phone] Mar, [facility] [address] [id number] [address] [place] [phone] Mar, [facility] [address] [place] [id number] [place] [phone] Mar, [address] [id number] Feb, Anxiety F41.9 and Cutaneous abscess, unspecified L02.91 [facility] [address] [id number] [address] [place] [phone] Feb, [facility] [address] [facility] [id number] [address] [place] [phone] Feb, [facility] [address] [place], [place] [id number] 57 Jan, Chest pain 786.50 ; Hypotension 458.9 [address] Card[address] arrhythmia 427.9 [facility] [address] [id number] [address] [place] [phone] Dec, Neuropathy 355.[address] [facility] [address] [id number] [address] [place] [phone] Aug, [facility] [address] [facility] [id number] [address] [place] [phone] Aug, [facility] [address] [facility] [id number] [address] [place] [phone] Jul, [facility] [address] [facility] [id number] [address] [place] [phone] Jul, [facility] [address] [facility] [id number] [address] [place] [phone] Jul, [facility] [address] [facility] [id number] [address] [place] [phone] Jul, [facility] [address] [facility] [id number] [address] [place] [phone] September, [facility] [address] [place], [place] [id number] September, [place] [address] [place], [place] [id number] 57 Aug, IMMUNIZATIONS No Known Immunizations SOCIAL [...]
--- OUTSIDE RECORDS SUMMARY | 2019-05-27 22:12 | XMS REPORT | Continuity of Care Document ---
Author Organization Unknown Address Unknown Phone Unavailable Allergies Active Description Code Type Severity Reaction Onset Reported/Identified Relationship to Patient Clinical Status Yes No Known Drug Allergies [id number] Drug Allergy Mild N/A 07/29/2009 Yes No Known Allergies Drug Allerg y N/A N/A 05/22/2013 Yes No Known Drug Allergies Drug Allergy N/A N/A 05/22/2013 Yes No Known Food Allergies Food Allergy N/A N/A 05/22/2013 Medications There is no data. Problems Date Dx Coded Attending Type Code Diagnosis Diagnosed By 03/23/2010 Ot 724.2 09/20/2012 296.90 MOO D DISORDER 09/20/2012 682.9 CELL ULITIS AND ABSCESS OF UNSPECIFIED SITES 09/20/2012 724.2 BACK PAIN, LOWER 09/20/2012 296.90 MOO D DISORDER 09/20/2012 682.9 CELL ULITIS AND ABSCESS OF UNSPECIFIED SITES 09/20/2012 724.2 BACK PAIN, LOWER 11/22/2012 Nate Mancera III, MD Final 597.80 URETHRITIS NOS 11/22/2012 Nate Mancera III, MD Admitting 788.1 DYSURIA 05/01/2013 Freddie Esparza MD Final 098 .0 ACUTE LOWER GC INFECT 05/01/2013 Freddie Esparza MD Final 295.30 PARANOID SCHIZ-UNSPEC 05/01/2013 Freddie Esparza MD Final 296.80 BIPOLAR DISORDER NOS 05/01/2013 Freddie Esparza MD Final 305 .1 TOBACCO USE DISORDER 05/01/2013 Freddie Esparza MD Admitting 788.7 URETHRAL DISCHARGE 05/22/2013 Colt Vaughn MD Final 305.1 TOBACCO USE DISORDER 05/22/2013 Colt Vaughn MD Final 599.0 URINARY TRACT INF NOS 05/22/2013 Colt Vaughn MD 724 .2 LUMBAGO 05/22/2013 Colt Vaughn MD Admitting 789.09 ABDOMINAL PAIN-SITE NEC 02/06/2014 KEMAR GRANGER Ot 724.4 02/06/2014 NURIS POTTS KEMAR Zack Ot 782.0 03/02/2014 BRANDON THOMAS, DAV A Ot 101 03/02/2014 BRANDON THOMAS, DAV A Ot 305. 1 03/02/2014 BRANDON THOMAS, DAV A Ot 722. 10 03/02/2014 BRANDON THOMAS, DAV A Ot 784. 92 03/03/2014 BRANDON THOMAS, DAV A Ot 525. 9 03/03/2014 BRANDON THOMAS, DAV A Ot 528. 00 05/10/2014 GELLENDER DO, JOYCE A Ot 782.0 06/01/2014 GELLENDER DO, JOYCE A Ot 789.01 06/01/2014 GELLENDER DO, JOYCE A Ot 789.01 06/01/2014 GELLENDER DO, JOYCE A Ot 787.3 06/01/2014 GELLENDER DO, JOYCE A Ot 789.01 06/01/2014 GELLENDER DO, JOYCE A Ot 789.01 06/01/2014 GELLENDER DO, JOYCE A Ot 782.0 06/01/2014 MICKY LÓPEZ [employer] MANUFACTURING TECHNICIAN Ot 682 .3 06/01/2014 MICYK LÓPEZ [employer] MANUFACTURING TECHNICIAN Ot 785 .6 09/25/2014 GELLENDER DO, JOYCE A Ot 789.01 [...] A Ot 782.0 09/25/2014 MORA THOMAS, KANDACE Rosen Ot 296.80 09/25/2014 MORA THOMAS, KANDACE Rosen [...] KANDACE M Ot E968.2 10/05/2014 MICKY LÓPEZ [employer] MANUFACTURING TECHNICIAN Ot 719.46 10/05/2014 MICKY LÓPEZ [employer] MANUFACTURING TECHNICIAN Ot 959 .7 10/05/2014 MICKY LÓPEZ [employer] MANUFACTURING TECHNICIAN Ot E000.8 10/05/2014 MICKY LÓPEZ [employer] MANUFACTURING TECHNICIAN Ot E849.0 10/05/2014 MICKY LÓPEZ [employer] MANUFACTURING TECHNICIAN Ot E960.0 11/04/2014 MICKY LÓPEZ [employer] MANUFACTURING TECHNICIAN Ot 729 .5 11/04/2014 MICKY LÓPEZ [employer] MANUFACTURING TECHNICIAN Ot 915 .2 11/04/2014 MICKY LÓPEZ [employer] MANUFACTURING TECHNICIAN Ot E928.9 11/12/2014 JOYCE FUCHS DO Ot [...] Rothman Ot 782.0 08/25/2015 GELLENDER DO, JOYCE Rotmhan Ot 724.2 08/25/2015 DHIRAJ THOMAS, SAGE Barrientos [...] 08/27/2015 DHIRAJ THOMAS, SAGE Barrientos Ot R51 12/03/2018 LOC DO, CARLY Cifuentes Ot E78.00 PURE HYPERCHOLESTEROLEMIA, UNSPECIFIED 12/03/2018 LOC DOCARLY Ot F17.210 NICOTINE DEPENDENCE, CIGARETTES, UNCOMPL 12/03/2018 LOC CARLY BRIAN Ot F31.9 BIPOLAR DISORDER, UNSPECIFIED 12/03/2018 LOC CARLY BRIAN Ot M25.441 EFFUSION, RIGHT HAND 12/03/2018 LOC DOCARLY K Ot M79.89 OTHER SPECIFIED SOFT TISSUE DISORDERS 12/09/2018 LOC DOCARLY Ot E78.00 PURE HYPERCHOLESTEROLEMIA, UNSPECIFIED 12/09/2018 LOC DO, CARLY K Ot F17.210 NICOTINE DEPENDENCE, CIGARETTES, UNCOMPL 12/09/2018 LOC DOCARLY Ot F31.9 BIPOLAR DISORDER, UNSPECIFIED 12/09/2018 LOC DOCARLY Ot M25.441 EFFUSION, RIGHT HAND 12/09/2018 LOC DOCARLY Ot M79.89 OTHER SPECIFIED SOFT TISSUE DISORDERS Procedures Code Description [place] [address] CULT URE WOUND (AEROBIC) 09/22/2012 Results Test Result Range LIPID PANEL - 09/20/18 12:36 CHOLESTEROL, TOTAL 203 mg/dL <200 HDL CHOLESTEROL 42 mg/dL >40 TRIGLYCERIDES 197 mg/dL <150 LDL-CHOLESTEROL 127 mg/dL (calc) NRG CHOL/HDLC RATIO 4.8 (calc) <5.0 NON HDL CHOLESTEROL 161 mg/dL (calc) <13 0 CMP - 09/20/18 12:36 GLUCOSE 108 mg/dL 65-99 UREA NITROGEN (BUN) 12 mg/dL 7-25 CREATININE 1.38 mg/dL 0.70-1.33 eGFR NON-AFR. SCOTTISH 57 mL/min/1.73m2 > OR = 60 eGFR 66 mL/min/1.73m2 > OR = 60 BUN/CREATININE RATIO 9 (calc) 6-22 SODIUM 143 mmol/L 135-146 POTASSIUM 4.0 mmol/L 3.5-5.3 CHLORIDE 109 mmol/L 98-110 CARBON DIOXIDE 22 mmol/L 20-32 CALCIUM 8.9 mg/dL 8.6-10.3 PROTEIN, TOTAL 7.0 g/dL 6.1-8.1 ALBUMIN 3.9 g/dL 3.6-5.1 GLOBULIN 3.1 g/dL (calc) 1.9-3.7 ALBUMIN/GLOBULIN RATIO 1.3 (calc) 1.0-2. 5 BILIRUBIN, TOTAL 0.5 mg/dL 0.2-1.2 ALKALINE PHOSPHATASE 107 U/L 40-115 AST 17 U/L 10-35 ALT 17 U/L 9-46 CBC - 09/20/18 12:36 WHITE BLOOD CELL COUNT 7.0 Thousand/uL 3 .8-10.8 RED BLOOD CELL COUNT 4.55 Million/uL 4.2 0-5.80 HEMOGLOBIN 12.9 g/dL 13.2-17.1 HEMATOCRIT 38.6 % 38.5-50.0 MCV 84.8 fL 80.0-100.0 MCH 28.4 pg 27.0-33.0 MCHC 33.4 g/dL 32.0-36.0 RDW 13.3 % 11.0-15.0 PLATELET COUNT 249 Thousand/uL 140-400 MPV 11.3 fL 7.5-12.5 ABSOLUTE NEUTROPHILS 4431 cells/uL 1500- 7800 ABSOLUTE LYMPHOCYTES 1876 cells/uL 850-3 900 ABSOLUTE MONOCYTES 490 cells/uL 200-950 ABSOLUTE EOSINOPHILS 161 cells/uL 15-500 ABSOLUTE BASOPHILS 42 cells/uL 0-200 NEUTROPHILS 63.3 % NRG LYMPHOCYTES 26.8 % NRG MONOCYTES 7.0 % NRG EOSINOPHILS 2.3 % NRG BASOPHILS 0.6 % NRG Complete blood count (CBC) with automate d white blood cell (WBC) differential - 12/03/18 11:32 Blood leukocytes automated count (number/volume) 5.8 10*3/uL 4.3-11.0 Blood erythrocytes automated count (number/volume) 4.94 10*6/uL 4.35-5.85 Venous blood hemoglobin measurement (mass/volume) 13.6 g/dL 13.3-17.7 Blood hematocrit (volume fraction) 40 % 40-54 Automated erythrocyte mean corpuscular volume 81 [ foz_us] 80-99 Automated erythrocyte mean corpuscular h emoglobin (mass per erythrocyte) 28 pg 25-34 Automated erythrocyte mean corpuscular h emoglobin concentration measurement (mass/volume) 34 g/dL 32-36 Automated erythrocyte distribution width ratio 13. 6 % 10.0- 14.5 Automated blood platelet count (count/volume) 258 10*3/uL 130-400 Automated blood platelet mean volume measurement 10.8 [foz_us] 7.4-10.4 Automated blood neutrophils/100 leukocytes 63 % 42-75 Automated blood lymphocytes/100 leukocytes 30 % 12-44 Blood monocytes/100 leukocytes 5 % 0-12 Automated blood eosinophils/100 leukocytes 2 % 0-10 Automated blood basophils/100 leukocytes 0 % 0-10 Blood neutrophils automated count (number/volume) 3.7 10*3 1.8-7.8 Blood lymphocytes automated count (number/volume) 1.7 10*3 1.0-4.0 Blood monocytes automated count (number/volume) 0. 3 10*3 0.0-1.0 Automated eosinophil count 0.1 10*3/uL 0 .0-0.3 Automated blood basophil count (count/volume) 0.0 10*3/uL 0.0-0.1 Comprehensive metabolic panel - 12/03/18 11:32 Serum or plasma sodium measurement (moles/volume) 142 mmol/L 135-145 Serum or plasma potassium measurement (moles/volume) 3.9 mmol/L 3.6-5.0 Serum or plasma chloride measurement (moles/volume) 112 mmol/L 98-107 Carbon dioxide 20 mmol/L 21-32 Serum or plasma anion gap determination (moles/volume) 10 mmol/L 5-14 Serum or plasma urea nitrogen measurement (mass/volume ) 10 mg/dL 7-18 Serum or plasma creatinine measurement (mass/volume) 1.35 mg/dL 0.60-1.30 Serum or plasma urea nitrogen/creatinine mass ratio 7 NRG Serum or plasma creatinine measurement w ith calculation of estimated glomerular filtration rate > NRG Serum or plasma glucose measurement (mass/volume) 110 mg/dL 70-105 Serum or plasma calcium measurement (mass/volume) 9.2 mg/dL 8.5-10.1 Serum or plasma total bilirubin measurement (mass/volu me) 0.5 mg/dL 0.1-1.0 Serum or plasma alkaline phosphatase yuval surement (enzymatic activity/volume) 110 U/L 40-136 Serum or plasma aspartate aminotransfera se measurement (enzymatic activity/volume) 13 U/L 5-34 Serum or plasma alanine aminotransferase measurement (enzymatic activity/volume) 13 U/L 0-55 Serum or plasma protein measurement (mass/volume) 7.7 g/dL 6.4-8.2 Serum or plasma albumin measurement (mass/volume) 4.1 g/dL 3.2-4.5 CALCIUM CORRECTED 9.1 mg/dL 8.5-10.1 Serum or plasma uric acid measurement (m ass/volume) - 12/03/18 11:32 Serum or plasma uric acid measurement (mass/volume) 10.9 mg/dL 2.6-7.2 Erythrocyte sedimentation rate by maday gren method - 12/03/18 11:32 Erythrocyte sedimentation rate by westergren method 45 mm 0- 30 Complete urinalysis with reflex to cultu re - 05/02/19 14:30 Urine color determination EMERITA NRG Urine clarity determination CLEAR NR G Urine pH measurement by test strip 5.5 5-9 Specific gravity of urine by test strip 1.015 1.016-1.022 Urine protein assay by test strip, semi-quantitative NEGATIVE NEGATIVE Urine glucose detection by automated test strip TR LANEY NEGATIVE Erythrocytes detection in urine sediment by light micr oscopy NEGATIVE NEGATIVE Urine ketones detection by automated test strip TR LANEY NEGATIVE Urine nitrite detection by test strip NEGATIVE NEGATIVE Urine total bilirubin detection by test strip 1+ NEGATIVE Urine urobilinogen measurement by automated test strip (mass/volume) 2.0 mg/dL < = 1.0 Urine leukocyte esterase detection by dipstick NEG ATIVE NEGATIVE Automated urine sediment erythrocyte cou nt by microscopy (number/high power field) NONE NRG Automated urine sediment leukocyte count by microscopy (number/high power field) [HPF] NRG Bacteria detection in urine sediment by light microsco py TRACE NRG Squamous epithelial cells detection in u rine sediment by light microscopy 0-2 NRG Crystals detection in urine sediment by light microsco py NONE NRG Casts detection in urine sediment by light microscopy NONE NRG Mucus detection in urine sediment by light microscopy NEGATIVE NRG Complete urinalysis with reflex to culture NO NRG Urine drug screening test - 05/02/19 14: 30 Urine phencyclidine detection by screening method NEGATIVE NEGATIVE Urine benzodiazepines detection by screening method NEGATIVE NEGATIVE Urine cocaine detection NEGATIVE NEGATI VE Urine amphetamines detection by screening method N EGATIVE NEGATIVE Urine methamphetamine detection by screening method POSITIVE NEGATIVE Urine cannabinoids detection by screening method N EGATIVE NEGATIVE Urine opiates detection by screening method NEGATI VE NEGATIVE Urine barbiturates detection NEGATIVE N EGATIVE Screening urine tricyclic antidepressants detection POSITIVE NEGATIVE Urine methadone detection by screening method NEGA TIVE NEGATIVE Urine oxycodone detection NEGATIVE NEGA TIVE Urine propoxyphene detection NEGATIVE N EGATIVE Comprehensive metabolic panel - 05/02/19 14:47 Serum or plasma sodium measurement (moles/volume) 139 mmol/L 135-145 Serum or plasma potassium measurement (moles/volume) 3.8 mmol/L 3.6-5.0 Serum or plasma chloride measurement (moles/volume) 100 mmol/L 98-107 Carbon dioxide 21 mmol/L 21-32 Serum or plasma anion gap determination (moles/volume) 18 mmol/L 5-14 Serum or plasma urea nitrogen measurement (mass/volume ) 21 mg/dL 7-18 Serum or plasma creatinine measurement (mass/volume) 1.61 mg/dL 0.60-1.30 Serum or plasma urea nitrogen/creatinine mass ratio 13 NRG Serum or plasma creatinine measurement w ith calculation of estimated glomerular filtration rate 54 NRG Serum or plasma glucose measurement (mass/volume) 105 mg/dL 70-105 Serum or plasma calcium measurement (mass/volume) 9.2 mg/dL 8.5-10.1 Serum or plasma total bilirubin measurement (mass/volu me) 1.4 mg/dL 0.1-1.0 Serum or plasma alkaline phosphatase yuval surement (enzymatic activity/volume) 87 U/L 40-136 Serum or plasma aspartate aminotransfera se measurement (enzymatic activity/volume) 48 U/L 5-34 Serum or plasma alanine aminotransferase measurement (enzymatic activity/volume) 60 U/L 0-55 Serum or plasma protein measurement (mass/volume) 7.6 g/dL 6.4-8.2 Serum or plasma albumin measurement (mass/volume) 3.9 g/dL 3.2-4.5 CALCIUM CORRECTED 9.3 mg/dL 8.5-10.1 Fibrin D-dimer FEU measurement in platel et poor plasma (mass/volume) - 05/02/19 14:47 Fibrin D-dimer FEU measurement in platelet poor plasma (mass/volume) 3.44 ug/mL 0.00-0.49 Serum or plasma lithium measurement (mol es/volume) - 05/02/19 14:47 BNP PT < 10.0 <100.0 Serum or plasma troponin i.cardiac measu rement (mass/volume) - 05/02/19 14:47 Serum or plasma troponin i.cardiac measurement (mass/v olume) < ng/mL <0.028 Encounters ACCT No. Visit Date/Time Discharge Status Pt. Type Provider Facility Loc./Unit Complaint [id number] 11/11/2016 15:36:54 11/11/2016 23:59: 59 CLS Outpatient Haris Garcia [id number] 05/22/2013 10:00:00 05/22/20 13 12:15:00 DIS Emergency Colt Vaughn MD [facility] [id number] 05/01/2013 15:17:00 05/01/20 13 17:25:00 DIS Emergency Isaias THOMAS, Freddie Myers [facility] [id number] 11/22/2012 08:03:00 11/23/19 13 08:43:00 DIS Emergency Calderon DEL VALLE MD, Nate Feldman [facility] [id number] 01/11/2019 10:00:00 01/11/2019 23:59: 59 [facility] Outpatient CARLOS A PARIS APRN [facility] [id number] 09/20/2018 09:20:00 Document Registration [id number] 05/02/2019 14:00:00 18:40:00 DIS Emergency MICKY LÓPEZ APRN [facility] ER SOA [id number] 12/03/2018 10:05:00 11:39:00 DIS Emergency CARLY MONTERROSO DO [facility] ER R FOOT PAIN / SWELLING [id number] 08/26/2015 14:00:00 016 17:33:00 DIS Emergency SAGE HEARN MD [facility] ER [id number] 08/25/2015 11:18:00 016 13:31:00 DIS Emergency SAGE HEARN MD [facility] ER [id number] 02/19/2015 11:40:00 015 13:06:00 DIS Emergency CARLOS A FELIPE DO [facility] ER [id number] 12/12/2014 14:55:00 23:59:59 CLS Outpatient ROSSLENDER JOYCE BRIAN [facility] RAD [id number] 11/04/2014 16:22:00 16:42:00 DIS Emergency MICKY LÓPEZ APRN [facility] ER [id number] 10/05/2014 14:02:00 16:54:00 DIS Emergency MICKY LÓPEZ APRN [facility] ER [id number] 09/24/2014 23:48:00 09:06:00 DIS Inpatient MORA THOMAS, KANDACE Rosen [facility] SURGICAL [id number] 06/01/2014 13:48:00 15:53:00 DIS Emergency MICKY LÓPEZ APRN [facility] ER [id number] 03/22/2014 11:46:00 23:59:59 CLS Outpatient ROSSLENJOYCE WILLOUGHBY DO Stephan [facility] RAD [id number] 03/03/2014 16:24:00 19:33:00 DIS Emergency DAV TAYLOR MD [facility] ER [id number] 03/02/2014 19:28:00 20:51:00 DIS Emergency DAV TAYLOR MD [facility] ER [id number] 02/14/2014 10:12:00 014 23:59:59 CLS Outpatient ROSSLENDER JOYCE Stephan [facility] RAD [id number] 02/06/2014 11:06:00 14:26:00 DIS Emergency KEMAR GRANGER [facility] ER [id number] 09/08/2013 08:59:00 23:59:59 CLS Outpatient ROSSLENDER JOYCE Stephan [facility] RAD [id number] 09/07/2013 11:55:00 23:59:59 CLS Outpatient GELLENDER JOYCE [facility] RAD [id number] 09/04/2013 09:05:00 014 23:59:59 [facility] JOYCE FUCHS DO [facility] RAD [id number] 06/01/2014 13:48:00 Document Registration [id number] 06/01/2014 13:48:00 Document Registration [id number] 06/01/2014 13:48:00 Document Registration [id number] 06/01/2014 13:48:00 Document Registration [id number] 03/23/2010 09:14:00 Document Registration [id number] 10/04/2012 09:57:00 Document Registration [id number] 09/20/2012 09:29:00 Document Registration
== END 2019-05-02 18:40 | disposition home or self-care (01) ==
LOC: EDUNIT# 13:59 → ER 14:00
DX: R06.00 Dyspnea, unspecified (principal); F41.9 Anxiety disorder, unspecified; F15.10 Other stimulant abuse, uncomplicated; F31.9 Bipolar disorder, unspecified; E78.00 Pure hypercholesterolemia, unspecified; Z79.52 Long term (current) use of systemic steroids
CPT/HCPCS: 36415; 71045; 71275; 80053; 80306; 81000; 83880; 84484; 85025; 85379; 93005; 96361; 96374

== ENCOUNTER 2019-08-22 21:30 | Inpatient (IN) | payer MEDICAID ==
[~2019-08-22] VITALS: Ht 187 cm; Wt 108.4 kg
--- OUTSIDE RECORDS SUMMARY | 2019-08-22 21:36 | XMS REPORT | Continuity of Care Document ---
Author Organization Unknown Address Unknown Phone Unavailable Allergies Active Description Code Type Severity Reaction Onset Reported/Identified Relationship to Patient Clinical Status Yes No Known Drug Allergies [id number] Drug Allergy Mild N/A 07/29/2009 Yes No [...] JOYCE A Ot 782.0 06/01/2014 MICKY LÓPEZ LOOP SEWER Ot 682 .3 06/01/2014 MICKY LÓPEZ LOOP SEWER Ot 785 .6 09/25/2014 GELLENDER DO, JOYCE [...] KANDACE M Ot E968.2 10/05/2014 MICKY LÓPEZ LOOP SEWER Ot 719.46 10/05/2014 MICKY LÓPEZ LOOP SEWER Ot 959 .7 10/05/2014 MICKY LÓPEZ LOOP SEWER Ot E000.8 10/05/2014 MICKY LÓPEZ LOOP SEWER Ot E849.0 10/05/2014 MICKY LÓPEZ LOOP SEWER Ot E960.0 11/04/2014 MICKY LÓPEZ LOOP SEWER Ot 729 .5 11/04/2014 MICKY LÓPEZ LOOP SEWER Ot 915 .2 11/04/2014 MICKY LÓPEZ LOOP SEWER Ot E928.9 11/12/2014 JOYCE FUCHS DO Ot [...] M79.89 OTHER SPECIFIED SOFT TISSUE DISORDERS 12/09/2018 LCO DOCARLY Ot E78.00 PURE HYPERCHOLESTEROLEMIA, UNSPECIFIED 12/09/2018 LOC DO, CARLY K Ot F17.210 NICOTINE DEPENDENCE, CIGARETTES, UNCOMPL 12/09/2018 LOC DOCARLY Ot F31.9 BIPOLAR DISORDER, UNSPECIFIED 12/09/2018 LOC DOCARLY Ot M25.441 EFFUSION, RIGHT HAND 12/09/2018 LOC DOCARLY Ot M79.89 OTHER SPECIFIED SOFT TISSUE DISORDERS Procedures Code [place] [address] CULT URE WOUND (AEROBIC) 09/22/2012 Results Test [...] 7-25 CREATININE 1.38 mg/dL 0.70-1.33 eGFR NON-AFR. GU[place]AN 57 mL/min/1.73m2 > OR = 60 eGFR [...] Status Pt. Type Provider Facility Loc./Unit Complaint [id number] 11/11/2016 15:36:54 11/11/2016 23:59: 59 CLS Outpatient Haris Garcia [id number] 05/22/2013 10:00:00 05/22/20 13 12:15:00 DIS Emergency Colt Vaughn MD [facility] [id number] 05/01/2013 15:17:00 05/01/20 13 17:25:00 DIS Emergency Isaias THOMAS, Freddie Myers [facility] [id number] 11/22/2012 08:03:00 11/23/19 13 08:43:00 DIS Emergency Calderon DEL VALLE MD, Nate Feldman [facility] [id number] 01/11/2019 10:00:00 01/11/2019 23:59: [address] [facility] Outpatient CARLOS A PAR[place] APRN [facility] [id number] 09/20/2018 09:20:00 Document Registration [id number] 05/02/2019 14:00:00 18:40:00 DIS Emergency MICKY LÓPEZ APRN [facility] ER SOA [id number] 12/03/2018 10:05:00 11:39:00 DIS Emergency CARLY MONTERROSO DO [facility] ER R FOOT PAIN / SWELLING [id number] 08/26/2015 14:00:00 016 17:33:00 DIS Emergency SAGE HEARN MD Via [facility] ER [id number] 08/25/2015 11:18:00 016 13:31:00 DIS Emergency SAGE HEARN MD Via [facility] ER [id number] 02/19/2015 11:40:00 015 13:06:00 DIS Emergency CARLOS A FELIPE DO Via [facility] ER [id number] 12/12/2014 14:55:00 23:59:59 CLS Outpatient ROSSLENDER JOYCE BRIAN Via [facility] RAD [id number] 11/04/2014 16:22:00 16:42:00 DIS Emergency MICKY LÓPEZ APRN Via [facility] ER [id number] 10/05/2014 14:02:00 16:54:00 DIS Emergency MICKY LÓPEZ APRN [facility] ER [id number] 09/24/2014 23:48:00 09:06:00 DIS Inpatient MORA THOMAS, KANADCE Rosen [facility] SURGICAL [id number] 06/01/2014 13:48:00 15:53:00 DIS Emergency MICKY LÓPEZ APRN Via [facility] ER [id number] 03/22/2014 11:46:00 23:59:59 CLS Outpatient ROSSLENJOYCE WILLOUGHBY DO Stephan Via [facility] RAD [id number] 03/03/2014 16:24:00 19:33:00 DIS Emergency DAV TAYLOR MD Via [facility] ER [id number] 03/02/2014 19:28:00 20:51:00 DIS Emergency DAV TAYLOR MD Via [facility] ER [id number] 02/14/2014 10:12:00 014 23:59:59 CLS Outpatient ROSSLENDER JOYCE Stephan Via [facility] RAD [id number] 02/06/2014 11:06:00 14:26:00 DIS Emergency KEMAR GRANGER Via [facility] ER [id number] 09/08/2013 08:59:00 23:59:59 CLS Outpatient ROSSLENDER JOYCE Stephan [facility] RAD [id number] 09/07/2013 11:55:00 23:59:59 CLS Outpatient GELLENDER JOYCE Via [facility] RAD [id number] 09/04/2013 09:05:00 014 23:59:59 [facility] JOYCE FUCHS DO Via [facility] RAD [id number] 06/01/2014 13:48:00 Document Registration [id number] 06/01/2014 13:48:00 Document Registration [id number] 06/01/2014 13:48:00 Document Registration [id number] 06/01/2014 13:48:00 Document Registration [id number] 03/23/2010 09:14:00 Document Registration [id number] 10/04/2012 09:57:00 Document Registration [id number] 09/20/2012 09:29:00 Document Registration
[2019-08-22] MEDS ORDERED: LACTATED RINGERS 1,000 ML IV ONE (21:41)
[2019-08-22 21:44] LABS: BASOPHILS # (AUTO) 0.1 10^3/uL (0.0-0.1); BASOPHILS % (AUTO) 0 % (0-10); EOSINOPHILS % (AUTO) 0 % (0-10); HEMATOCRIT 39 % (40-54); HEMOGLOBIN 14.1 G/DL (13.3-17.7); LYMPHOCYTES # (AUTO) 2.9 X 10^3 (1.0-4.0); LYMPHOCYTES % (AUTO) 21 % (12-44); MEAN CORPUSCULAR HEMOGLOBIN 29 PG (25-34); MEAN CORPUSCULAR HGB CONC 36 G/DL (32-36); MEAN CORPUSCULAR VOLUME 79 FL (80-99); MEAN PLATELET VOLUME 10.6 FL (7.4-10.4); MONOCYTES # (AUTO) 2.7 X 10^3 (0.0-1.0); MONOCYTES % (AUTO) 20 % (0-12); NEUTROPHILS # (AUTO) 7.9 X 10^3 (1.8-7.8); NEUTROPHILS % (AUTO) 58 % (42-75); PLATELET COUNT 385 10^3/uL (130-400); RED CELL DISTRIBUTION WIDTH 13.7 % (10.0-14.5); WHITE BLOOD COUNT 13.6 10^3/uL (4.3-11.0)
[2019-08-22] MEDS ORDERED: ONDANSETRON 4 MG/2 ML (SDV) Z0FRAN IVP ONE (21:45)
[2019-08-22] MEDS ORDERED: ASPIRIN 81 MG CHEW (CHILDREN'S ASA) PO ONE (21:45)
[2019-08-22] MEDS ORDERED: NITROGLYCERIN 0.4 MG SL TABS BTL 25'S SL PRN (21:45)
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
[2019-08-22 21:57] LABS: PROTHROMBIN TIME PATIENT 13.3 SEC (12.2-14.7)
[2019-08-22 22:06] LABS: ALBUMIN 3.6 GM/DL (3.2-4.5); BILIRUBIN,TOTAL 2.9 MG/DL (0.1-1.0); CALCIUM 8.8 MG/DL (8.5-10.1); CREATININE SERUM 2.34 MG/DL (0.60-1.30); MAGNESIUM 2.5 MG/DL (1.6-2.4); TOTAL PROTEIN 7.2 GM/DL (6.4-8.2)
[2019-08-22 22:07] LABS: SALICYLATE < 5.0 MG/DL (5.0-20.0)
[2019-08-22 22:11] LABS: ACETAMINOPHEN < 10 UG/ML (10-30)
[2019-08-22] MEDS ORDERED: NS IV 1000 ML 1,000 ML IV SCH (22:12)
--- NOTE | 2019-08-22 22:22 | Diagnostic Imaging Report ---
INDICATION: Difficulty breathing. FINDINGS: There is minimal dependent atelectasis in the lung bases. There is no alveolar consolidation. There is no effusion. There is no pneumothorax. Heart size and mediastinal contours appear appropriate. Pulmonary vascularity appears normal. IMPRESSION: Minimal basilar atelectasis. The lungs otherwise appear clear. Dictated by: Dictated on workstation # [id number]
[2019-08-22 22:50] LABS: CLARITY,URINE CLEAR; COLOR,URINE YELLOW; GLUCOSE, URINE (UA) NEGATIVE (NEGATIVE); KETONES,URINE 1+ (NEGATIVE); LEUKOCYTE ESTERASE ,URINE NEGATIVE (NEGATIVE); NITRITE,URINE NEGATIVE (NEGATIVE); PH,URINE 5.5 (5-9); PROTEIN,URINE NEGATIVE (NEGATIVE)
[2019-08-22 22:59] LABS: AMORPHOUS SEDIMENT,UR FEW AMOR URATES /LPF; BACTERIA,URINE TRACE /HPF; WBC,URINE 0-2 /HPF
[2019-08-22 23:04] LABS: BILIRUBIN,URINE 2+ (NEGATIVE)
[2019-08-22 23:21] LABS: AMPHETAMINE SCREEN, URINE POSITIVE (NEGATIVE); BENZODIAZEPINES SCREEN URINE NEGATIVE (NEGATIVE); COCAINE SCREEN URINE NEGATIVE (NEGATIVE); METHAMPHETAMINE SCREEN URINE S POSITIVE (NEGATIVE)
[2019-08-22 23:22] LABS: BARBITURATE SCREEN URINE NEGATIVE (NEGATIVE); CANNABINOID SCREEN, URINE NEGATIVE (NEGATIVE); METHADONE STAT NEGATIVE (NEGATIVE); OPIATE SCREEN URINE NEGATIVE (NEGATIVE); OXYCODONE STAT NEGATIVE (NEGATIVE); PROPOXYPHENE STAT NEGATIVE (NEGATIVE); TRICYCLIC ANTIDEPRESSANTS SCRE POSITIVE (NEGATIVE)
[2019-08-23] VITALS (7 sets, daily range): BP systolic 105–124; BP diastolic 59–74
[2019-08-23] MEDS ORDERED: NS IV 1000 ML 1,000 ML IV SCH (00:38)
[2019-08-23] MEDS ORDERED: fentaNYL INJECTION 100 MCG/2 ML AMP IVP ONE (00:45)
[2019-08-23] MEDS ORDERED: PIPERACILLIN SODIUM/TAZOBACTAM 4.5 GM in NS (IVPB) 100 ML IV ONE (01:00)
--- OUTSIDE RECORDS SUMMARY | 2019-08-23 01:11 | XMS REPORT | Continuity of Care Document ---
Author Organization Unknown Address Unknown Phone Unavailable Allergies Active Description Code Type Severity Reaction Onset Reported/Identified Relationship to Patient Clinical Status Yes No Known Drug Allergies [id number] Drug Allergy Mild N/A 07/29/2009 Yes No [...] JOYCE A Ot 782.0 06/01/2014 MICKY LÓPEZ PIE CRIMPING MACHINE OPERATOR Ot 682 .3 06/01/2014 MICKY LÓPEZ PIE CRIMPING MACHINE OPERATOR Ot 785 .6 09/25/2014 GELLENDER DO, JOYCE [...] KANDACE M Ot E968.2 10/05/2014 MICKY LÓPEZ PIE CRIMPING MACHINE OPERATOR Ot 719.46 10/05/2014 MICKY LÓPEZ PIE CRIMPING MACHINE OPERATOR Ot 959 .7 10/05/2014 MICKY LÓPEZ PIE CRIMPING MACHINE OPERATOR Ot E000.8 10/05/2014 MICKY LÓPEZ PIE CRIMPING MACHINE OPERATOR Ot E849.0 10/05/2014 MICKY LÓPEZ PIE CRIMPING MACHINE OPERATOR Ot E960.0 11/04/2014 MICKY LÓPEZ PIE CRIMPING MACHINE OPERATOR Ot 729 .5 11/04/2014 MICKY LÓPEZ PIE CRIMPING MACHINE OPERATOR Ot 915 .2 11/04/2014 MICKY LÓPEZ PIE CRIMPING MACHINE OPERATOR Ot E928.9 11/12/2014 JOYCE FUCHS DO Ot [...] Code Description [place] [address] CULT URE WOUND (AEROBIC) 09/22/2012 Results Test [...] 7-25 CREATININE 1.38 mg/dL 0.70-1.33 eGFR NON-AFR. PALEST[place] 57 mL/min/1.73m2 > OR = 60 eGFR [...] i.cardiac measurement (mass/v olume) < ng/mL <0.028 Complete blood count (CBC) with automate d white blood cell (WBC) differential - 08/22/19 21:36 Blood leukocytes automated count (number/volume) 13.6 10*3/uL 4.3-11.0 Blood erythrocytes automated count (number/volume) 4.95 10*6/uL 4.35-5.85 Venous blood hemoglobin measurement (mass/volume) 14.1 g/dL 13.3-17.7 Blood hematocrit (volume fraction) 39 % 40-54 Automated erythrocyte mean corpuscular volume 79 [ foz_us] 80-99 Automated erythrocyte mean corpuscular h emoglobin (mass per erythrocyte) 29 pg 25-34 Automated erythrocyte mean corpuscular h emoglobin concentration measurement (mass/volume) 36 g/dL 32-36 Automated erythrocyte distribution width ratio 13. 7 % 10.0- 14.5 Automated blood platelet count (count/volume) 385 10*3/uL 130-400 Automated blood platelet mean volume measurement 10.6 [foz_us] 7.4-10.4 Automated blood neutrophils/100 leukocytes 58 % 42-75 Automated blood lymphocytes/100 leukocytes 21 % 12-44 Blood monocytes/100 leukocytes 20 % 0-12 Automated blood eosinophils/100 leukocytes 0 % 0-10 Automated blood basophils/100 leukocytes 0 % 0-10 Blood neutrophils automated count (number/volume) 7.9 10*3 1.8-7.8 Blood lymphocytes automated count (number/volume) 2.9 10*3 1.0-4.0 Blood monocytes automated count (number/volume) 2. 7 10*3 0.0-1.0 Automated eosinophil count 0.0 10*3/uL 0 .0-0.3 Automated blood basophil count (count/volume) 0.1 10*3/uL 0.0-0.1 PT panel in platelet poor plasma by coag ulation assay - 08/22/19 21:36 Prothrombin time (PT) in platelet poor plasma by coagu lation assay 13.3 s 12.2-14.7 INR in platelet poor plasma or blood by coagulation as say 1.0 0.8-1.4 Activated partial thromboplastin time (a PTT) in platelet poor plasma bycoagulation assay - 08/22/19 21:36 Activated partial thromboplastin time (a PTT) in platelet poor plasma bycoagulation assay 28 s 24-35 Comprehensive metabolic panel - 08/22/19 21:36 Serum or plasma sodium measurement (moles/volume) 132 mmol/L 135-145 Serum or plasma potassium measurement (moles/volume) 4.0 mmol/L 3.6-5.0 Serum or plasma chloride measurement (moles/volume) 95 mmol/L 98-107 Carbon dioxide 19 mmol/L 21-32 Serum or plasma anion gap determination (moles/volume) 18 mmol/L 5-14 Serum or plasma urea nitrogen measurement (mass/volume ) 60 mg/dL 7-18 Serum or plasma creatinine measurement (mass/volume) 2.34 mg/dL 0.60-1.30 Serum or plasma urea nitrogen/creatinine mass ratio 26 NRG Serum or plasma creatinine measurement w ith calculation of estimated glomerular filtration rate 35 NRG Serum or plasma glucose measurement (mass/volume) 129 mg/dL 70-105 Serum or plasma calcium measurement (mass/volume) 8.8 mg/dL 8.5-10.1 Serum or plasma total bilirubin measurement (mass/volu me) 2.9 mg/dL 0.1-1.0 Serum or plasma alkaline phosphatase yuval surement (enzymatic activity/volume) 64 U/L 40-136 Serum or plasma aspartate aminotransfera se measurement (enzymatic activity/volume) 72 U/L 5-34 Serum or plasma alanine aminotransferase measurement (enzymatic activity/volume) 83 U/L 0-55 Serum or plasma protein measurement (mass/volume) 7.2 g/dL 6.4-8.2 Serum or plasma albumin measurement (mass/volume) 3.6 g/dL 3.2-4.5 CALCIUM CORRECTED 9.1 mg/dL 8.5-10.1 Magnesium - 08/22/19 21:36 Magnesium 2.5 mg/dL 1.6-2.4 Serum or plasma creatine kinase measurem ent (enzymatic activity/volume) - 08/22/19 21:36 Serum or plasma creatine kinase measurem ent (enzymatic activity/volume) 1024 U/L 30-200 Serum or plasma creatine kinase MB measu rement (enzymatic activity/volume) - 08/22/19 21:36 Serum or plasma creatine kinase MB measu rement (enzymatic activity/volume) 2.0 ng/mL <6.6 Myoglobin, serum - 08/22/19 21:36 Myoglobin, serum 595.0 ng/mL 10.0-92.0 Serum or plasma salicylates measurement (mass/volume) - 08/22/19 21:36 Serum or plasma salicylates measurement (mass/volume) < mg/dL 5.0-20.0 Serum or plasma acetaminophen measuremen t (mass/volume) - 08/22/19 21:36 Serum or plasma acetaminophen measurement (mass/volume ) < ug/mL 10-30 Serum or plasma ethanol measurement (mas s/volume) - 08/22/19 21:36 Serum or plasma ethanol measurement (mass/volume) < mg/dL <10 Serum or plasma amylase measurement (enz ymatic activity/volume) - 08/22/19 21:36 Serum or plasma amylase measurement (enzymatic activit y/volume) 70 U/L 25-125 Lipase - 08/22/19 21:36 Lipase 40 U/L 8-78 Serum or plasma troponin i.cardiac measu rement (mass/volume) - 08/22/19 21:36 Serum or plasma troponin i.cardiac measurement (mass/v olume) < ng/mL <0.028 Serum or plasma lithium measurement (mol es/volume) - 08/22/19 21:36 BNP PT < 10.0 <100.0 Blood lactic acid measurement (moles/vol ume) - 08/22/19 21:50 Blood lactic acid measurement (moles/volume) 1.35 mmol/L 0.50-2.00 Complete urinalysis with reflex to cultu re - 08/22/19 22:42 Urine color determination YELLOW NRG Urine clarity determination CLEAR NR G Urine pH measurement by test strip 5.5 5-9 Specific gravity of urine by test strip 1.025 1.016-1.022 Urine protein assay by test strip, semi-quantitative NEGATIVE NEGATIVE Urine glucose detection by automated test strip NE GATIVE NEGATIVE Erythrocytes detection in urine sediment by light micr oscopy NEGATIVE NEGATIVE Urine ketones detection by automated test strip 1+ NEGATIVE Urine nitrite detection by test strip NEGATIVE NEGATIVE Urine total bilirubin detection by test strip 2+ NEGATIVE Urine urobilinogen measurement by automated test strip (mass/volume) 4.0 mg/dL < = 1.0 Urine leukocyte esterase detection by dipstick NEG ATIVE NEGATIVE Automated urine sediment erythrocyte cou nt by microscopy (number/high power field) NONE NRG Automated urine sediment leukocyte count by microscopy (number/high power field) [HPF] NRG Bacteria detection in urine sediment by light microsco py TRACE NRG Crystals detection in urine sediment by light microsco py PRESENT NRG Casts detection in urine sediment by light microscopy NONE NRG Mucus detection in urine sediment by light microscopy NEGATIVE NRG Complete urinalysis with reflex to culture NO NRG Amorphous sediment detection in urine sediment by ligh t microscopy FEW JANELL URATES NRG Urine drug screening test - 08/22/19 22: 42 Urine phencyclidine detection by screening method NEGATIVE NEGATIVE Urine benzodiazepines detection by screening method NEGATIVE NEGATIVE Urine cocaine detection NEGATIVE NEGATI VE Urine amphetamines detection by screening method P OSITIVE NEGATIVE Urine methamphetamine detection by screening method POSITIVE NEGATIVE Urine cannabinoids detection by screening method N EGATIVE NEGATIVE Urine opiates detection by screening method NEGATI VE NEGATIVE Urine barbiturates detection NEGATIVE N EGATIVE Screening urine tricyclic antidepressants detection POSITIVE NEGATIVE Urine methadone detection by screening method NEGA TIVE NEGATIVE Urine oxycodone detection NEGATIVE NEGA TIVE Urine propoxyphene detection NEGATIVE N EGATIVE Encounters ACCT No. Visit Date/Time Discharge Status Pt. Type Provider Facility Loc./Unit Complaint [id number] 11/11/2016 15:36:54 11/11/2016 23:59: 59 CLS Outpatient Haris Garcia [id number] 05/22/2013 10:00:00 05/22/20 13 12:15:00 DIS Emergency Colt Vaughn MD [facility] [id number] 05/01/2013 15:17:00 05/01/20 13 17:25:00 DIS Emergency Freddie Esparza MD, [facility] [id number] 11/22/2012 08:03:00 11/23/19 13 08:43:00 DIS Emergency Nate Mancera III, MD [facility] [id number] 01/11/2019 10:00:00 01/11/2019 23:59: 59 CLS Outpatient CARLOS A PARIS APRN [facility] [id number] 09/20/2018 09:20:00 Document Registration [id number] 05/02/2019 14:00:00 019 18:40:00 DIS Emergency MICKY LÓPEZ APRN [facility] ER SOA [id number] 12/03/2018 10:05:00 019 11:39:00 DIS Emergency CARLY MONTERROSO DO [facility] ER R FOOT PAIN / SWELLING [id number] 08/26/2015 14:00:00 016 17:33:00 DIS Emergency SAGE HEARN MD [facility] ER [id number] 08/25/2015 11:18:00 016 13:31:00 DIS Emergency SAGE HEARN MD [facility] ER [id number] 02/19/2015 11:40:00 015 13:06:00 DIS Emergency CARLOS A FELIPE DO [facility] ER [id number] 12/12/2014 14:55:00 23:59:59 CLS Outpatient JOYCE FUCHS DO [facility] RAD [id number] 11/04/2014 16:22:00 015 16:42:00 DIS Emergency MICKY LÓPEZ APRN [facility] ER [id number] 10/05/2014 14:02:00 015 16:54:00 DIS Emergency MICKY LÓPEZ APRN [facility] ER [id number] 09/24/2014 23:48:00 015 09:06:00 DIS Inpatient KANDACE VELAZCO MD [facility] SURGICAL [id number] 06/01/2014 13:48:00 015 15:53:00 DIS Emergency MICKY LÓPEZ APRN [facility] ER [id number] 03/22/2014 11:46:00 014 23:59:59 CLS Outpatient JOYCE FUCHS DO [facility] RAD [id number] 03/03/2014 16:24:00 014 19:33:00 DIS Emergency DAV TAYLOR MD [facility] ER [id number] 03/02/2014 19:28:00 20:51:00 DIS Emergency DAV TAYLOR MD [facility] ER [id number] 02/14/2014 10:12:00 23:59:59 CLS Outpatient DEVONDER JOYCE BRIAN [facility] RAD [id number] 02/06/2014 11:06:00 14:26:00 DIS Emergency KEMAR GRANGER [facility] ER [id number] 09/08/2013 08:59:00 23:59:59 CLS Outpatient JOYCE FUCHS DO [facility] RAD [id number] 09/07/2013 11:55:00 23:59:59 CLS Outpatient JOYCE FUCHS DO [facility] RAD [id number] 09/04/2013 09:05:00 23:59:59 CLS Outpatient ROSSLENDER JOYCE BRIAN [facility] RAD [id number] 08/22/2019 21:48:00 Document Registration [id number] 06/01/2014 13:48:00 Document Registration [id number] 06/01/2014 13:48:00 Document Registration [id number] 06/01/2014 13:48:00 Document Registration [id number] 06/01/2014 13:48:00 Document Registration [id number] 03/23/2010 09:14:00 Document Registration [id number] 10/04/2012 09:57:00 Document Registration [id number] 09/20/2012 09:29:00 Document Registration
--- NOTE | 2019-08-23 01:16 | NUR ---
REPORT RECEIVED FROM TAMMI MUNOZ FROM THE EMERGENCY DEPARTMENT. WILL CONTINUE TO MONITOR PATIENT ONCE PT IS ON FLOOR
--- NOTE | 2019-08-23 01:32 | NUR ---
FERDINAND ARAUJO JR admitted to room 412-1, with an admitting diagnosis of SEPSIS,DEHYDRATION,ACUTE RENAL FAILURE, ACUTE RENAL FAILURE, SMALL BOWEL INFLAMMATION IN RLQ on 08/23/19 from [facility] via [facility]EL[facility], accompanied by STAFF.FERDINAND ARAUJO JR introduced to surroundings, call light, bed controls, phone, TV, temperature control, lights, meal times, smoking policy, visitor policy, side rail policy, bathrooms and showers. Patient Rights given to patient in the handbook. FERDINAND ARAUJO JR verbalizes understanding that [facility] is not responsible for the loss or damage to any personal effects or valuables that are kept in the patients possession during their hospitalization. The following Patient and/or family were informed about the Rapid Response Team and its purpose.
[2019-08-23] MEDS ORDERED: D5 1/2 NS W/KCL 20 MEQ/L 1,000 ML IV ONE (01:53)
[2019-08-23] MEDS: D5 1/2 NS W/KCL 20 MEQ/L 1,000 ML IV SCH ×2 (01:55→08:23)
[2019-08-23] MEDS ORDERED: ONDANSETRON 4 MG/2 ML (SDV) Z0FRAN IV PRN (02:15)
[2019-08-23] MEDS: fentaNYL INJECTION 100 MCG/2 ML AMP IV PRN ×8 (04:48→23:30)
[2019-08-23 05:30] LABS: BASOPHILS % (AUTO) 0 % (0-10); EOSINOPHILS # (AUTO) 0.1 10^3/uL (0.0-0.3); EOSINOPHILS % (AUTO) 1 % (0-10); HEMATOCRIT 33 % (40-54); HEMOGLOBIN 11.3 G/DL (13.3-17.7); LYMPHOCYTES # (AUTO) 1.6 X 10^3 (1.0-4.0); LYMPHOCYTES % (AUTO) 16 % (12-44); MEAN CORPUSCULAR HEMOGLOBIN 28 PG (25-34); MEAN CORPUSCULAR HGB CONC 34 G/DL (32-36); MEAN CORPUSCULAR VOLUME 82 FL (80-99); MEAN PLATELET VOLUME 10.7 FL (7.4-10.4); MONOCYTES # (AUTO) 1.6 X 10^3 (0.0-1.0); MONOCYTES % (AUTO) 16 % (0-12); NEUTROPHILS # (AUTO) 6.6 X 10^3 (1.8-7.8); NEUTROPHILS % (AUTO) 67 % (42-75); PLATELET COUNT 293 10^3/uL (130-400); RED CELL DISTRIBUTION WIDTH 13.7 % (10.0-14.5); WHITE BLOOD COUNT 9.8 10^3/uL (4.3-11.0)
[2019-08-23] MEDS ORDERED: PIPERACILLIN/TAZO 4.5 GM VIAL (ZOSYN) IV ONE (05:48)
[2019-08-23] MEDS ORDERED: NS (IVPB) 100 ML ONE (05:48)
[2019-08-23 05:54] LABS: ALBUMIN 2.8 GM/DL (3.2-4.5); BILIRUBIN,TOTAL 2.2 MG/DL (0.1-1.0); CALCIUM 7.8 MG/DL (8.5-10.1); CREATININE SERUM 1.94 MG/DL (0.60-1.30); POTASSIUM 3.7 MMOL/L (3.6-5.0); TOTAL PROTEIN 5.5 GM/DL (6.4-8.2)
[2019-08-23] MEDS: PIPERACILLIN/TAZO 4.5 GM/NS 100 ML IV SCH ×6 (06:08→23:29)
--- NOTE | 2019-08-23 06:55 | Diagnostic Imaging Report ---
PROCEDURE: CT chest, abdomen, and pelvis without contrast. TECHNIQUE: Multiple contiguous axial images were obtained through the chest, abdomen, and pelvis without the use of intravenous contrast. Auto Exposure Controls were utilized during the CT exam to meet ALARA standards for radiation dose reduction. INDICATION: Chest pain. Shortness of breath. Comparison with CT angiogram of the chest from 05/02/2019. FINDINGS: CT CHEST: The lungs are well-aerated. No infiltrates have developed. There is some mild discoid atelectasis in the lung bases more prominent on the left. The heart is not enlarged. No pleural effusion. No mediastinal or hilar adenopathy of pathologic size. No blastic or lytic bony lesion. IMPRESSION: Basilar atelectasis otherwise negative. CT ABDOMEN AND PELVIS: There is thickening of the small bowel wall rather focal in nature in the right lower quadrant with associated stranding and edema in the mesentery. Mild mesenteric adenopathy present. There is no evidence of obstructive process. The remainder of the small bowel appears normal. The colon shows normal stool and gas pattern without evidence of constipation or diverticulitis. No evidence of appendicitis. There is no free air or free fluid. The liver and gallbladder appear normal. Pancreas is normal. Spleen is normal. The adrenal glands and kidneys appear normal. No pelvic masses. No blastic or lytic bony changes. IMPRESSION: 1. There is segmental thickening of the small bowel loops right lower quadrant within the ileum with associated mesenteric edema and mild adenopathy of the mesentery. These are most likely secondary to focal inflammatory process. Underlying malignancy cannot be excluded. These findings are concordant with the preliminary report. Dictated by: Dictated on workstation # [id number]
[2019-08-23] MEDS ORDERED: QUET200T29 PO (08:11)
[2019-08-23] MEDS ORDERED: BUSP15TA60 PO (08:11)
--- NOTE | 2019-08-23 08:12 | NUR ---
SPOKE WITH THE PT AND WENT THRU THE EXT MED HISTORY TO COMPLETE THE MED REC. PT SAYS HE ONLY TAKES THE 2 MEDS LISTED ON THE EXT MED HISTORY AND DOESNT TAKE ANY OTC PRODUCTS
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
[2019-08-23] MEDS: LACTATED RINGERS 1,000 ML IV SCH ×2 (13:37→20:50)
[2019-08-23 22:17] LABS: HEPATITIS C ANTIBODY C Non-Reactive (Non-Reactive)
[2019-08-24 03:30] VITALS: BP 110/63
[2019-08-24] MEDS: fentaNYL INJECTION 100 MCG/2 ML AMP IV PRN ×8 (03:39→23:51)
[2019-08-24] MEDS: LACTATED RINGERS 1,000 ML IV SCH ×4 (04:30→23:51)
[2019-08-24] MEDS: PIPERACILLIN/TAZO 4.5 GM/NS 100 ML IV SCH ×6 (06:50→23:52)
[2019-08-24 07:02] LABS: BASOPHILS # (AUTO) 0.1 10^3/uL (0.0-0.1); BASOPHILS % (AUTO) 1 % (0-10); EOSINOPHILS # (AUTO) 0.1 10^3/uL (0.0-0.3); EOSINOPHILS % (AUTO) 0 % (0-10); HEMATOCRIT 32 % (40-54); HEMOGLOBIN 10.8 G/DL (13.3-17.7); LYMPHOCYTES # (AUTO) 2.1 X 10^3 (1.0-4.0); LYMPHOCYTES % (AUTO) 17 % (12-44); MEAN CORPUSCULAR HEMOGLOBIN 28 PG (25-34); MEAN CORPUSCULAR HGB CONC 34 G/DL (32-36); MEAN CORPUSCULAR VOLUME 83 FL (80-99); MONOCYTES # (AUTO) 1.4 X 10^3 (0.0-1.0); MONOCYTES % (AUTO) 12 % (0-12); NEUTROPHILS # (AUTO) 8.5 X 10^3 (1.8-7.8); NEUTROPHILS % (AUTO) 70 % (42-75); PLATELET COUNT 286 10^3/uL (130-400); RED CELL DISTRIBUTION WIDTH 13.5 % (10.0-14.5); WHITE BLOOD COUNT 12.1 10^3/uL (4.3-11.0)
[2019-08-24 07:22] LABS: ALBUMIN 2.8 GM/DL (3.2-4.5); BILIRUBIN,TOTAL 1.4 MG/DL (0.1-1.0); CREATININE SERUM 1.51 MG/DL (0.60-1.30); POTASSIUM 4.1 MMOL/L (3.6-5.0); TOTAL PROTEIN 5.4 GM/DL (6.4-8.2)
[2019-08-24 08:00] VITALS: BP 118/76
--- NOTE | 2019-08-24 09:29 | Physician Query Clarification ---
PQ-Uncertain Diagnosis Admission/Discharge Admission Date: Aug 23, 2019 at 00:50 Discharge Date: The medical record reflects the following clinical scenario: History/Risk Factors: Right lower quadrant pain Enteritis Acute on chronic renal failure Clinical Findings: WBC 13.6, T 36.7, P 129, Resp 20, BP 116/72, Lactic acid 1.35, Blood cultures-no growth. Treatment:IV Piperacillin Sod/Tazobactam Sod 4.5 gm/Sodium Chloride, IV lactated Ringers, IV Zofran. Question: Is Sepsis a clinically valid diagnosis? Sepsis was documented in the ED record by Dr. Albert with no further documentation in the medical record. Please document a response in Progress Note or Discharge Summary. 1. Yes, clinically valid, condition resolved. 2. No, condition ruled out. 3. Other, with explanation of clinical findings. 4. Undetermined, no explanation for clinical findings. PHYSICIAN RESPONSE Diagnosis clinically valid: Yes, Conditon resolved Please remember a lack of response to the above will prompt a phone page by CDI/Coding staff. In responding to this query, please exercise your independent professional judgment. The purpose of this communication is to more accurately reflect the complexity of your patients condition. The fact that a question is asked does not imply that any particular answer is desired or expected. Thank you for your timely response to this clarification. Requestors name: Kala Holland [facility] [employer] Phone # ext [phone] or [phone] THIS PHYSICIAN QUERY FORM IS A PERMANENT PART OF THE MEDICAL RECORD KALA HOLLAND Aug 24, 2019 09:29 NKECHI MCGRATH DO Aug 24, 2019 12:02
--- NOTE | 2019-08-24 10:50 | Progress Note - Surgery ---
Subjective Time Seen by a Provider: 09:31 Subjective/Events-last exam Pt seen and examined, states his abdominal is not better and actually the liquids made it worse. He is frustrated "that nothing is being done" and is actually asking for liquids beause he is thirsty. Review of Systems General: No Chills, No Night Sweats Pulmonary: No Dyspnea, No Cough Cardiovascular: No: Chest Pain, Palpitations Gastrointestinal: Abdominal Pain; No: Vomiting Focused Exam Lactate Level 08/22/19 21:50: Lactic Acid Level 1.35 Objective Exam Vital Signs Date Time Temp Pulse Resp B/P (MAP) Pulse Ox O2 Delivery O2 Flow Rate FiO2 08/24/19 08:00 36.6 103 20 118/76 (90) 100 Room Air 08/24/19 03:30 37.0 93 16 110/63 (79) 98 Room Air 08/23/19 23:30 37.1 91 16 110/62 (78) 93 Room Air 08/23/19 19:55 Room Air 08/23/19 19:41 37.1 88 20 115/74 (88) 99 Room Air 08/23/19 15:58 37.3 79 20 108/59 (75) 95 Room Air 08/23/19 12:00 36.7 93 16 105/65 (78) 98 Room Air I & O 08/24/19 07:00 Intake Total 862 ml Output Total 2225 ml Balance -1363 ml Capillary Refill : Less Than 3 SecondsLess Than 3 Seconds General Appearance: WD/WN, Anxious, Mild Distress (secondary to pain and he is thirsty) HEENT: Pharynx Normal, Moist Mucous Membranes Neck: Full Range of Motion, Non Tender, Supple Respiratory: Chest Non Tender, Lungs Clear, Normal Breath Sounds, No Accessory Muscle Use, No Respiratory Distress Cardiovascular: No Murmur, Tachycardia Gastrointestinal: no organomegaly, no pulsatile mass, abnormal bowel sounds (DECREASED ), tenderness (RLQ - even with light palpation); No hernia, No mass Extremity: Normal Capillary Refill, Non Tender, No Calf Tenderness, No Pedal Edema Neurologic/Psychiatric: Alert, Oriented x3, shank paperer II-XII Norm as Tested Results Lab Laboratory Tests 08/24/19 06:55: White Blood Count 12.1H, Red Blood Count 3.85L, Hemoglobin 10.8L, Hematocrit 32L , Mean Corpuscular Volume 83, Mean Corpuscular Hemoglobin 28, Mean Corpuscular Hemoglobin Concent 34, Red Cell Distribution Width 13.5, Platelet Count 286, Mean Platelet Volume 10.0, Neutrophils (%) (Auto) 70, Lymphocytes (%) (Auto) 17, Monocytes (%) (Auto) 12, Eosinophils (%) (Auto) 0, Basophils (%) (Auto) 1, Neutrophils # (Auto) 8.5H, Lymphocytes # (Auto) 2.1, Monocytes # (Auto) 1.4H, Eosinophils # (Auto) 0.1, Basophils # (Auto) 0.1, Sodium Level 138, Potassium Level 4.1, Chloride Level 106, Carbon Dioxide Level 22, Anion Gap 10, Blood Urea Nitrogen 22H, Creatinine 1.51H, Estimat Glomerular Filtration Rate 58, BUN/Creatinine Ratio 15, Glucose Level 112H, Calcium Level 8.0L, Corrected Calcium 9.0, Total Bilirubin 1.4H, Aspartate Amino Transf (AST/SGOT) 38H, Alanine Aminotransferase (ALT/SGPT) 53, Alkaline Phosphatase 50, Total Protein 5.4L, Albumin 2.8L Microbiology 08/22/19 Blood Culture - Preliminary, Resulted No growth Assessment/Plan Assessment/Plan Assessment/Plan RLQ pain Enteritis Leukocytosis Chronic Renal failure Elevated Liver enzymes Pt is still having pain which was made worse by eating and his WBC jumped back up to 12.1. He needs to be watched one more day, npo and IV fluids to make sure he is improving. Options if he doesn't improve include repeat CT Abd/Pelvis and possibly even Diagnostic Laparoscopy. Will recheck labs in am, continue IV fluids, NPO, IV ABX, pain control. Pt was encouraged to ambulate and use IS. Elevated liver enzymes and a mild renal failure still seem to be improving with fluids; this could be dehydration. He is also positive for methamphetamines. Clinical Quality Measures DVT/VTE Risk/Contraindication: Risk Factor Score Per Nursin RFS Level Per Nursing on Admit: 4+=Very High NKECHI MCGRATH DO Aug 24, 2019 10:50
[2019-08-24 12:00] VITALS: BP 124/72
[2019-08-24 15:42] VITALS: BP 131/71
--- NOTE | 2019-08-24 16:18 | NUR ---
Pastoral care visit w/pts family
[2019-08-24 20:01] VITALS: BP 128/78
[2019-08-24] MEDS: busPIRone 15 MG (BUSPAR) TABLET PO SCH (20:23)
[2019-08-24] MEDS: QUEtiapine 200 MG (SEROquel) TAB IMMEDIATE RELEASE PO SCH (20:24)
[2019-08-25 00:03] VITALS: BP 88/60
[2019-08-25 04:00] VITALS: BP 99/58
[2019-08-25] MEDS: fentaNYL INJECTION 100 MCG/2 ML AMP IV PRN ×6 (04:51→23:00)
[2019-08-25] MEDS: LACTATED RINGERS 1,000 ML IV SCH ×2 (04:55→12:39)
[2019-08-25] MEDS: PIPERACILLIN/TAZO 4.5 GM/NS 100 ML IV SCH ×6 (06:02→23:00)
[2019-08-25 06:54] LABS: BASOPHILS % (AUTO) 0 % (0-10); EOSINOPHILS % (AUTO) 0 % (0-10); HEMATOCRIT 29 % (40-54); HEMOGLOBIN 9.8 G/DL (13.3-17.7); LYMPHOCYTES # (AUTO) 2.3 X 10^3 (1.0-4.0); LYMPHOCYTES % (AUTO) 20 % (12-44); MEAN CORPUSCULAR HEMOGLOBIN 28 PG (25-34); MEAN CORPUSCULAR HGB CONC 33 G/DL (32-36); MEAN CORPUSCULAR VOLUME 84 FL (80-99); MEAN PLATELET VOLUME 10.6 FL (7.4-10.4); MONOCYTES # (AUTO) 0.9 X 10^3 (0.0-1.0); MONOCYTES % (AUTO) 8 % (0-12); NEUTROPHILS # (AUTO) 8.2 X 10^3 (1.8-7.8); NEUTROPHILS % (AUTO) 72 % (42-75); PLATELET COUNT 293 10^3/uL (130-400); WHITE BLOOD COUNT 11.4 10^3/uL (4.3-11.0)
[2019-08-25 07:09] LABS: ALANINE AMINOTRANSFERASE 40 U/L (0-55); ALBUMIN 2.6 GM/DL (3.2-4.5); ALKALINE PHOSPHATASE 49 U/L (40-136); BUN/CREATININE RATIO 10; CALCIUM 7.9 MG/DL (8.5-10.1); CARBON DIOXIDE 21 MMOL/L (21-32); CHLORIDE 108 MMOL/L (98-107); CREATININE SERUM 1.45 MG/DL (0.60-1.30); GFR ESTIMATED > 60; GLUCOSE 96 MG/DL (70-105); POTASSIUM 4.1 MMOL/L (3.6-5.0); SODIUM 139 MMOL/L (135-145); TOTAL PROTEIN 5.1 GM/DL (6.4-8.2)
[2019-08-25 08:00] VITALS: BP 113/64
[2019-08-25] MEDS: PANTOPRAZOLE 40 MG (PROTONIX) VIAL IV SCH (08:03)
[2019-08-25] MEDS: busPIRone 15 MG (BUSPAR) TABLET PO SCH ×2 (08:03→20:21)
--- NOTE | 2019-08-25 10:00 | Progress Note - Surgery ---
Subjective Time Seen by a Provider: 09:06 Subjective/Events-last exam Pt seen and examined, states the abdominal pain is the same. He is asking to eat or at least drink. Review of Systems General: No Chills, No Night Sweats; Fatigue Pulmonary: No Dyspnea, No Cough Cardiovascular: No: Chest Pain, Palpitations Gastrointestinal: Nausea, Abdominal Pain; No: Vomiting Focused Exam Lactate Level 08/22/19 21:50: Lactic Acid Level 1.35 Objective Exam Vital Signs Date Time Temp Pulse Resp B/P (MAP) Pulse Ox O2 Delivery O2 Flow Rate FiO2 08/25/19 08:00 36.7 91 18 113/64 (80) 98 Room Air 08/25/19 05:45 36.4 08/25/19 04:51 36.4 08/25/19 04:00 37.0 86 20 99/58 (72) 96 Room Air 08/25/19 00:30 36.4 08/25/19 00:03 37.7 116 18 88/60 (69) 93 Room Air 08/24/19 23:51 36.4 08/24/19 22:00 36.4 08/24/19 20:01 36.4 84 20 128/78 (95) 100 Room Air 08/24/19 20:00 Room Air 08/24/19 15:42 36.7 65 20 131/71 (91) 97 Room Air 08/24/19 12:00 36.8 79 20 124/72 (89) 100 Room Air 08/24/19 11:27 Room Air I & O 08/25/19 07:00 Intake Total 1000 ml Output Total 2850 ml Balance -1850 ml Capillary Refill : Less Than 3 SecondsLess Than 3 Seconds General Appearance: WD/WN, Anxious, Mild Distress (secondary to pain and he is thirsty) HEENT: Pharynx Normal, Moist Mucous Membranes Respiratory: Chest Non Tender, Lungs Clear, Normal Breath Sounds, No Accessory Muscle Use, No Respiratory Distress Cardiovascular: Regular Rate, Rhythm, No Murmur Gastrointestinal: no organomegaly, no pulsatile mass, abnormal bowel sounds (DECREASED ), tenderness (RLQ - even with light palpation); No hernia, No mass Extremity: Normal Capillary Refill, Non Tender, No Calf Tenderness, No Pedal Edema Neurologic/Psychiatric: Alert, Oriented x3 Results Lab Laboratory Tests 08/25/19 06:32: White Blood Count 11.4H, Red Blood Count 3.50L, Hemoglobin 9.8L, Hematocrit 29L, Mean Corpuscular Volume 84, Mean Corpuscular Hemoglobin 28, Mean Corpuscular Hemoglobin Concent 33, Red Cell Distribution Width 14.0, Platelet Count 293, Mean Platelet Volume 10.6H, Neutrophils (%) (Auto) 72, Lymphocytes (%) (Auto) 20, Monocytes (%) (Auto) 8, Eosinophils (%) (Auto) 0, Basophils (%) (Auto) 0, Neutrophils # (Auto) 8.2H, Lymphocytes # (Auto) 2.3, Monocytes # (Auto) 0.9, Eosinophils # (Auto) 0.0, Basophils # (Auto) 0.0, Sodium Level 139, Potassium Level 4.1, Chloride Level 108H, Carbon Dioxide Level 21, Anion Gap 10, Blood Urea Nitrogen 15, Creatinine 1.45H, Estimat Glomerular Filtration Rate > 60, BUN/Creatinine Ratio 10, Glucose Level 96, Calcium Level 7.9L, Corrected Calcium 9.0, Total Bilirubin 1.0, Aspartate Amino Transf (AST/SGOT) 29, Alanine A minotransferase (ALT/SGPT) 40, Alkaline Phosphatase 49, Total Protein 5.1L, Albumin 2.6L Microbiology 08/22/19 Blood Culture - Preliminary, Resulted No growth Assessment/Plan Assessment/Plan Assessment/Plan RLQ pain Enteritis Leukocytosis Chronic Renal failure Elevated Liver enzymes - resolving Anemia Pt is still having pain will try liquid diet again. WBC basically the same at 11.7, but now his Hg has dropped to 9.8 from 14. He is not having any hematochezia, melena or hematemesis. Still may need to do a repeat CT Abd/Pelvis or possibly even Diagnostic Laparoscopy. Will recheck labs in am, continue IV fluids, IV ABX, pain control. Pt was encouraged to ambulate and use IS. Elevated liver enzymes and a mild renal failure still seem to be improving with fluids; this could be dehydration. Anemia may just be dilutional. Clinical Quality Measures DVT/VTE Risk/Contraindication: Risk Factor Score Per Nursin RFS Level Per Nursing on Admit: 4+=Very High NKECHI MCGRATH DO Aug 25, 2019 10:00
[2019-08-25 12:00] VITALS: BP 122/69
[2019-08-25] MEDS ORDERED: LACTATED RINGERS 1,000 ML IV ONE (12:29)
[2019-08-25 16:35] VITALS: BP 131/61
[2019-08-25 19:58] VITALS: BP 129/78
[2019-08-25] MEDS: QUEtiapine 200 MG (SEROquel) TAB IMMEDIATE RELEASE PO SCH (20:21)
[2019-08-26 00:10] VITALS: BP 111/56
[2019-08-26 03:50] VITALS: BP 117/63
--- NOTE | 2019-08-26 04:15 | NUR ---
2300 - Pt IV site was leaking and infiltrated. Removed IV. Restarted another IV 20 gauge at Left AC. 0350 - Pt complaining that he needs to bend his arm to sleep and requested to move his IV site so that he can sleep comfortably. 0400 - Restarted IV 18 gauge on R wrist and moved fluids. Asked pt if he wants the other IV site removed, he said no and wants to keep it.
[2019-08-26] MEDS: fentaNYL INJECTION 100 MCG/2 ML AMP IV PRN ×5 (04:25→20:42)
[2019-08-26] MEDS: LACTATED RINGERS 1,000 ML IV SCH ×3 (06:28→17:57)
[2019-08-26] MEDS: PIPERACILLIN/TAZO 4.5 GM/NS 100 ML IV SCH ×6 (06:28→23:10)
[2019-08-26 07:36] VITALS: BP 113/62
[2019-08-26] MEDS: busPIRone 15 MG (BUSPAR) TABLET PO SCH ×2 (08:12→20:42)
[2019-08-26] MEDS: PANTOPRAZOLE 40 MG (PROTONIX) VIAL IV SCH (08:12)
--- NOTE | 2019-08-26 11:22 | Progress Note ---
Subjective Date Seen by a Provider: Aug 26, 2019 Time Seen by a Provider: 10:30 Subjective/Events-last exam Patient seen with Dr. Arce. Patient reports getting ready to take a shower and then ambulate. Reports pain continues to improve but still has some. Denies any N/V or F/C. Reports having BMs and flatus. Tolerating clear liquids. Patient reports he would like to have some food. Objective Exam Vital Signs Date Time Temp Pulse Resp B/P (MAP) Pulse Ox O2 Delivery O2 Flow Rate FiO2 08/26/19 08:00 Room Air 08/26/19 07:36 37.2 84 20 113/62 (79) 97 Room Air 08/26/19 03:50 37.0 89 16 117/63 (81) 98 Room Air 08/26/19 00:10 37.7 82 16 111/56 (74) 95 Room Air 08/25/19 20:00 Room Air 08/25/19 19:58 36.8 85 18 129/78 (95) 99 Room Air 08/25/19 16:35 36.9 81 22 131/61 (84) 98 Room Air 08/25/19 12:00 36.9 100 18 122/69 (86) 96 Room Air I & O 08/26/19 07:00 Intake Total 3740 ml Output Total 2500 ml Balance 1240 ml Capillary Refill : Less Than 3 SecondsLess Than 3 Seconds General Appearance: No Apparent Distress, WD/WN Neck: Full Range of Motion, Normal Inspection, Supple Respiratory: Normal Breath Sounds, No Accessory Muscle Use, No Respiratory Distress Cardiovascular: Regular Rate, Rhythm, No Edema Gastrointestinal: soft, tenderness (RLQ) Extremity: Normal Capillary Refill, Normal Inspection, Normal Range of Motion Neurologic/Psychiatric: Alert, Oriented x3 Skin: Normal Color, Warm/Dry Results Lab Microbiology 08/22/19 Blood Culture - Preliminary, Resulted No growth Assessment/Plan Assessment/Plan Assess & Plan/Chief Complaint RLQ pain - improving Enteritis Leukocytosis Chronic Renal failure Elevated Liver enzymes - resolving Anemia Tolerating liquid diet and ambulating. Will advance diet to dys3. Continue IV fluids, ABX, pain meds. Check labs in AM Clinical Quality Measures DVT/VTE Risk/Contraindication: Risk Factor Score Per Nursin RFS Level Per Nursing on Admit: 4+=Very High JOSE GUADALUPE GALLARDO [employer] Aug 26, 2019 11:22
[2019-08-26 11:46] VITALS: BP 108/72
[2019-08-26 15:40] VITALS: BP 131/74
[2019-08-26 19:34] VITALS: BP 131/66
[2019-08-26] MEDS: QUEtiapine 200 MG (SEROquel) TAB IMMEDIATE RELEASE PO SCH (20:42)
[2019-08-27] VITALS: BP 120/69
[2019-08-27] MEDS: LACTATED RINGERS 1,000 ML IV SCH ×3 (01:59→18:41)
[2019-08-27 04:00] VITALS: BP 118/68
[2019-08-27] MEDS: fentaNYL INJECTION 100 MCG/2 ML AMP IV PRN ×4 (04:36→21:59)
[2019-08-27 04:38] LABS: BASOPHILS % (AUTO) 0 % (0-10); EOSINOPHILS # (AUTO) 0.1 10^3/uL (0.0-0.3); EOSINOPHILS % (AUTO) 1 % (0-10); HEMATOCRIT 27 % (40-54); HEMOGLOBIN 9.2 G/DL (13.3-17.7); LYMPHOCYTES # (AUTO) 2.4 X 10^3 (1.0-4.0); LYMPHOCYTES % (AUTO) 29 % (12-44); MEAN CORPUSCULAR HEMOGLOBIN 28 PG (25-34); MEAN CORPUSCULAR HGB CONC 34 G/DL (32-36); MEAN CORPUSCULAR VOLUME 83 FL (80-99); MEAN PLATELET VOLUME 10.1 FL (7.4-10.4); MONOCYTES # (AUTO) 0.7 X 10^3 (0.0-1.0); MONOCYTES % (AUTO) 8 % (0-12); NEUTROPHILS # (AUTO) 5.2 X 10^3 (1.8-7.8); NEUTROPHILS % (AUTO) 62 % (42-75); PLATELET COUNT 287 10^3/uL (130-400); RED CELL DISTRIBUTION WIDTH 13.7 % (10.0-14.5); WHITE BLOOD COUNT 8.4 10^3/uL (4.3-11.0)
[2019-08-27 04:59] LABS: ALANINE AMINOTRANSFERASE 27 U/L (0-55); ALBUMIN 2.4 GM/DL (3.2-4.5); ALKALINE PHOSPHATASE 44 U/L (40-136); BILIRUBIN,TOTAL 0.5 MG/DL (0.1-1.0); BUN/CREATININE RATIO 5; CALCIUM 7.2 MG/DL (8.5-10.1); CARBON DIOXIDE 20 MMOL/L (21-32); CHLORIDE 110 MMOL/L (98-107); CREATININE SERUM 1.29 MG/DL (0.60-1.30); GFR ESTIMATED > 60; GLUCOSE 114 MG/DL (70-105); POTASSIUM 3.4 MMOL/L (3.6-5.0); SODIUM 140 MMOL/L (135-145); TOTAL PROTEIN 4.8 GM/DL (6.4-8.2)
--- NOTE | 2019-08-27 06:50 | NUR ---
06 - pt called RN because he had drops of blood on his urine. 621 - notified Dr. Arce, received orders for Urinalysis, consult urology, and CT Abdomen/pelvis. Will follow orders.
[2019-08-27] MEDS: PIPERACILLIN/TAZO 4.5 GM/NS 100 ML IV SCH ×6 (07:18→23:04)
[2019-08-27 07:43] VITALS: BP 136/78
[2019-08-27] MEDS: PANTOPRAZOLE 40 MG (PROTONIX) VIAL IV SCH (07:52)
[2019-08-27] MEDS: busPIRone 15 MG (BUSPAR) TABLET PO SCH ×2 (07:52→20:42)
[2019-08-27 09:33] LABS: BILIRUBIN,URINE NEGATIVE (NEGATIVE); CLARITY,URINE CLEAR; COLOR,URINE YELLOW; GLUCOSE, URINE (UA) TRACE (NEGATIVE); KETONES,URINE NEGATIVE (NEGATIVE); LEUKOCYTE ESTERASE ,URINE TRACE (NEGATIVE); NITRITE,URINE NEGATIVE (NEGATIVE); PH,URINE 6.5 (5-9); PROTEIN,URINE NEGATIVE (NEGATIVE)
[2019-08-27 09:42] LABS: BACTERIA,URINE NEGATIVE /HPF; RBC,URINE 50-100 /HPF; SQUAMOUS EPITHELIAL CELL,UR RARE /HPF
--- NOTE | 2019-08-27 10:36 | Diagnostic Imaging Report ---
PROCEDURE: CT urinary tract, rule out kidney stone. TECHNIQUE: Multiple contiguous axial images were obtained through the abdomen and pelvis without the use of intravenous contrast. Auto Exposure Controls were utilized during the CT exam to meet ALARA standards for radiation dose reduction. INDICATION: Right lower quadrant pain with new onset hematuria this morning. CORRELATION STUDY: 08/22/2019 FINDINGS: LOWER THORAX: There is presence a very small pleural effusion layering dependently, change from prior study. Trace pericardial effusion with normal-sized heart. Small hiatal hernia with slight wall thickening at the low esophagus. Minimal basilar atelectasis. LIVER: Unremarkable on unenhanced imaging. GALLBLADDER: Present and unremarkable. No bile duct dilatation. SPLEEN: Unremarkable. PANCREAS: Unremarkable. ADRENAL GLANDS: Unchanged small nodularity left adrenal gland body. KIDNEYS: Kidneys and ureters are unremarkable. No calcification or obstructive uropathy. Unchanged mild symmetric perinephric stranding. ABDOMINAL AORTA: Unremarkable, nonaneurysmal. A few scattered small abdominal lymph nodes. No significant free air or ascites. GASTROINTESTINAL TRACT: Stomach is relatively collapsed. There are a few prominent gas and fluid-filled small bowel present. There is a more focal segmental area of small bowel with wall thickening and surrounding inflammatory changes in the right mid to lower abdomen likely in the distal ileum. There is prominent fecalized material in this area. High degree of obstruction does not appear to be suggested. There is visualization normal appendix in the right lower quadrant. Colon with mild amount of stool and gas. URINARY BLADDER: Relatively decompressed. REPRODUCTIVE: Prostate gland appearing unremarkable. OSSEOUS STRUCTURES: Mild advanced degenerative changes. OTHER: None. IMPRESSION: 1. No evidence for nephroureterolithiasis or obstructive uropathy. No source for hematuria. If symptoms persist, post contrast imaging recommended. 2. Again demonstration of a rather significant focal small bowel wall thickening and surrounding inflammatory changes. This could be reflective of underlying infectious or inflammatory process. The possibility of a neoplasm not excluded. Stable to perhaps slightly more prominent from prior study. Increased amount of a small bowel feces in this segment. Dictated by: Dictated on workstation # [id number]
[2019-08-27] MEDS: LORazepam INJ 2 MG/ML (ATIVAN) VIAL IVP PRN (11:09)
[2019-08-27 11:27] VITALS: BP 155/89
--- NOTE | 2019-08-27 11:58 | Progress Note ---
Subjective Date Seen by a Provider: Aug 27, 2019 Time Seen by a Provider: 11:00 Subjective/Events-last exam Patient seen with Dr. Arce. Patient reports still has RLQ abdominal pain but reports that the pain is the same as when he came in but reports that the pain medication makes it tolerable. Tolerating diet and ambulating. No N/V or fever/chills. Did report one episode of bright red blood in urine last night. UA did show blood in urine. He reports that he has urinated since then with no blood noted. Objective Exam Vital Signs Date Time Temp Pulse Resp B/P (MAP) Pulse Ox O2 Delivery O2 Flow Rate FiO2 08/27/19 11:27 37.2 74 16 155/89 (111) 99 Room Air 08/27/19 08:00 Room Air 08/27/19 07:43 37.0 80 20 136/78 (97) 98 Room Air 08/27/19 04:00 37.4 92 20 118/68 (85) 95 Room Air 08/27/19 00:00 37.6 90 16 120/69 (86) 94 Room Air 08/26/19 20:00 Room Air 08/26/19 19:34 37.1 80 16 131/66 (87) 100 Room Air 08/26/19 15:40 37.2 85 18 131/74 (93) 98 Room Air I & O 08/27/19 07:00 Intake Total 3195 ml Output Total 2225 ml Balance 970 ml Capillary Refill : Less Than 3 SecondsLess Than 3 Seconds General Appearance: No Apparent Distress, WD/WN Neck: Full Range of Motion, Normal Inspection, Supple Respiratory: Normal Breath Sounds, No Accessory Muscle Use, No Respiratory Distress Cardiovascular: Regular Rate, Rhythm, No Edema Gastrointestinal: soft, tenderness (RLQ) Extremity: Normal Capillary Refill, Normal Inspection, Normal Range of Motion Neurologic/Psychiatric: Alert, Oriented x3 Skin: Normal Color, Warm/Dry Results Lab Laboratory Tests 08/27/19 04:11: White Blood Count 8.4, Red Blood Count 3.31L, Hemoglobin 9.2L, Hematocrit 27L, Mean Corpuscular Volume 83, Mean Corpuscular Hemoglobin 28, Mean Corpuscular Hemoglobin Concent 34, Red Cell Distribution Width 13.7, Platelet Count 287, Me an Platelet Volume 10.1, Neutrophils (%) (Auto) 62, Lymphocytes (%) (Auto) 29, Monocytes (%) (Auto) 8, Eosinophils (%) (Auto) 1, Basophils (%) (Auto) 0, Neutrophils # (Auto) 5.2, Lymphocytes # (Auto) 2.4, Monocytes # (Auto) 0.7, Eosinophils # (Auto) 0.1, Basophils # (Auto) 0.0, Sodium Level 140, Potassium Level 3.4L, Chloride Level 110H, Carbon Dioxide Level 20L, Anion Gap 10, Blood Urea Nitrogen 6L, Creatinine 1.29, Estimat Glomerular Filtration Rate > 60, BUN/Creatinine Ratio 5, Glucose Level 114H, Calcium Level 7.2L, Corrected Calcium 8.5, Total Bilirubin 0.5, Aspartate Amino Transf (AST/SGOT) 18, Alanine Aminotransferase (ALT/SGPT) 27, Alkaline Phosphatase 44, Total Protein 4.8L, Albumin 2.4L 08/27/19 08:55: Urine Color YELLOW, Urine Clarity CLEAR, Urine pH 6.5, Urine Specific [place] 1.020, Urine Protein NEGATIVE, Urine Glucose (UA) TRACEH, Urine Ketones NEGATIVE, Urine Nitrite NEGATIVE, Urine Bilirubin NEGATIVE, Urine Urobilinogen 0.2, Urine Leukocyte Esterase TRACEH, Urine RBC (Auto) 3+H, Urine RBC 50-100H, Urine WBC 2-5, Urine Squamous Epithelial Cells RARE, Urine Crystals NONE, Urine Bacteria NEGATIVE, Urine Casts NONE, Urine Mucus NEGATIVE, Urine Culture Indicated NO Microbiology 08/22/19 Blood Culture - Preliminary, Resulted No growth Assessment/Plan Assessment/Plan Assess & Plan/Chief Complaint RLQ pain Enteritis Leukocytosis Chronic Renal failure Elevated Liver enzymes - resolving Anemia Hematuria Tolerating liquid diet and ambulating. Continue IV fluids, ABX, pain meds. Check labs in AM CT unremarkable for any sources of hematuria and will consult urology Ativan ordered for anxiety Clinical Quality Measures DVT/VTE Risk/Contraindication: Risk Factor Score Per Nursin RFS Level Per Nursing on Admit: 4+=Very High JOSE GUADALUPE GALLARDO DOOR TECHNICIAN Aug 27, 2019 11:58
--- NOTE | 2019-08-27 12:48 | Consultation - Hospitalist ---
HPI History of Present Illness: HPI/Chief Complaint CC: Abdominal pain with new hematuria HPI: This is a 59yoAAM w/h/o disability from bipolar d/o who I was consulted for continued RLQ abdominal pain. Patient reports the pain started 3 weeks prior to admit and has continued ongoing since that time. Patient was very dehydrated when he was admitted and was very nauseated and could not eat and now since admit he is able to eat and drink but abdominal pain has not changed at all. Pain meds IV helps for a few minutes but then the pain increases. No BM for several days. Hematuria now resolved that he had this morning and non-contrast CT was negative for source. Source: patient, RN/MD, old records Exam Limitations: no limitations Date Seen 08/27/19 Attending Physician Alejo Prakash DO [facility] [place] Referring Physician Date of Admission Aug 23, 2019 at 00:50 Home Medications & Allergies Home Medications Reviewed patient Home Medication Reconciliation performed by pharmacy medication reconciliations bottle house quality control technician and/or nursing. Patients Allergies have been reviewed. Allergies Allergies Coded Allergies No Known Drug Allergies (Unverified07/29/09) Past Auwwmgo-Hstcoc-Ytrmiz Hx Past Med/Social Hx: Reviewed Nursing Past Med/Soc Hx, Reviewed and Corrections made Patient Social History Marrital Status: single Employed/Student: unemployed ([employer] [id number]) Alcohol Use: Past History (HX OF ABUSE, CLAIMS NO RECENT USE PER PT 08/22/19) Recreational Drug Use: Yes (THC, UDS + FOR AMPHETAMINES/METHAMPETAMINES 08/22/19) Drug of Choice: THC, UDS+ FOR AMPHETAMINES/METH AMPHETAMINES 08/22/19 Smoking Status: Current Everyday Smoker (1 PPD) Type Used: Cigarettes (1 PPD) Recent Foreign Travel: No Contact w/other who traveled: No Recent Infectious Disease Expo: No Immunizations Up To Date Tetanus Booster (TDap): Unknown Pediatric: Yes Seasonal Allergies Seasonal Allergies: No Past Medical History Surgeries: Orthopedic Cardiac: High Cholesterol, Irregular Heartbeat Reproductive: No Sexually Transmitted Disease: No HIV/AIDS: No Musculoskeletal: Chronic Back Pain Hearing Impairment: Denies Psychosocial: Anxiety, Bipolar, Depression History of Blood Disorders: No Family History Patient reports no known family medical history. Other Conditions/Hx (Pt states he doesn't think his parents have any DM, HTN or CAD) Review of Systems Constitutional: see HPI Gastrointestinal: abdominal pain, loss of appetite, nausea Physical Exam Physical Exam Vital Signs Vital Signs - First Documented 08/22/19 21:32 Temp 36.7 Pulse 129 Resp 20 B/P (MAP) 116/72 (87) Pulse Ox 94 O2 Delivery Room Air Capillary Refill : Less Than 3 SecondsLess Than 3 Seconds Height, Weight, BMI Height: 6'3.00" Weight: 265lbs. oz. 120.932811rv; 30.99 BMI Method:Stated General Appearance: No Apparent Distress, WD/WN, Chronically ill Eyes: Bilateral Eye PERRL, Bilateral Eye EOMI HEENT: Pharynx Normal, Moist Mucous Membranes Neck: Full Range of Motion, Normal Inspection, Supple Respiratory: Normal Breath Sounds, No Accessory Muscle Use, No Respiratory Di stress Cardiovascular: Regular Rate, Rhythm, No Edema Gastrointestinal: Normal Bowel Sounds, No Organomegaly, Soft, Hernia (small umbilical), Tenderness (in RLQ even with light touch) Rectal: Deferred Back: No CVA Tenderness, No Vertebral Tenderness Extremity: Normal Capillary Refill, Normal Inspection, Normal Range of Motion Neurologic/Psychiatric: Alert, Oriented x3 Skin: Normal Color, Warm/Dry Lymphatic: No Adenopathy Results Results/Procedures Labs Laboratory Tests 08/27/19 04:11 Patient resulted labs reviewed. Assessment/Plan Assessment and Plan Assess & Plan/Chief Complaint Assessment: Continued RLQ abdominal pain with inflammation of the small intestine on CT scan N/V now resolved Meth use in past Bipolar d/o with chronic disability Hematuria now resolved CT negative for source Constipation Plan: Miralax Pain control SCD Lovenox contraindicated due to hematuria Labs in morning May need exploratory lap? Diagnosis/Problems Diagnosis/Problems (1) small bowel inflammation in rlq (2) Nausea vomiting and diarrhea Status: Acute (3) Elevated liver enzymes Status: Acute (4) Acute renal failure Status: Acute (5) Dehydration Status: Acute (6) Methamphetamine abuse Status: Acute (7) Anxiety Status: Acute (8) Bipolar 1 disorder Clinical Quality Measures DVT/VTE Risk/Contraindication: Risk Factor Score Per Nursin RFS Level Per Nursing on Admit: 4+=Very High FRANK MOSER DO Aug 27, 2019 12:48
[2019-08-27 15:26] VITALS: BP 131/80
[2019-08-27 19:46] VITALS: BP 149/87
[2019-08-27] MEDS ORDERED: polyethylene glycoL POWDER 17 GM (MIRALAX) PACK PO ONE (20:00)
[2019-08-27] MEDS: QUEtiapine 200 MG (SEROquel) TAB IMMEDIATE RELEASE PO SCH (20:42)
[2019-08-28 00:10] VITALS: BP 117/55
[2019-08-28] MEDS: LACTATED RINGERS 1,000 ML IV SCH (02:46)
[2019-08-28 04:45] VITALS: BP 128/62
[2019-08-28] MEDS: fentaNYL INJECTION 100 MCG/2 ML AMP IV PRN (05:20)
[2019-08-28 05:38] LABS: BASOPHILS % (AUTO) 0 % (0-10); EOSINOPHILS # (AUTO) 0.1 10^3/uL (0.0-0.3); EOSINOPHILS % (AUTO) 1 % (0-10); HEMATOCRIT 27 % (40-54); LYMPHOCYTES # (AUTO) 2.3 X 10^3 (1.0-4.0); LYMPHOCYTES % (AUTO) 35 % (12-44); MEAN CORPUSCULAR HEMOGLOBIN 28 PG (25-34); MEAN CORPUSCULAR HGB CONC 33 G/DL (32-36); MEAN CORPUSCULAR VOLUME 83 FL (80-99); MEAN PLATELET VOLUME 10.1 FL (7.4-10.4); MONOCYTES # (AUTO) 0.7 X 10^3 (0.0-1.0); MONOCYTES % (AUTO) 11 % (0-12); NEUTROPHILS # (AUTO) 3.4 X 10^3 (1.8-7.8); NEUTROPHILS % (AUTO) 53 % (42-75); PLATELET COUNT 270 10^3/uL (130-400); RED CELL DISTRIBUTION WIDTH 13.5 % (10.0-14.5); WHITE BLOOD COUNT 6.4 10^3/uL (4.3-11.0)
[2019-08-28 06:03] LABS: ALANINE AMINOTRANSFERASE 22 U/L (0-55); ALBUMIN 2.4 GM/DL (3.2-4.5); ALKALINE PHOSPHATASE 43 U/L (40-136); BILIRUBIN,TOTAL 0.5 MG/DL (0.1-1.0); BUN/CREATININE RATIO 3; CARBON DIOXIDE 22 MMOL/L (21-32); CHLORIDE 110 MMOL/L (98-107); CREATININE SERUM 1.21 MG/DL (0.60-1.30); GFR ESTIMATED > 60; GLUCOSE 108 MG/DL (70-105); POTASSIUM 3.3 MMOL/L (3.6-5.0); SODIUM 141 MMOL/L (135-145); TOTAL PROTEIN 4.8 GM/DL (6.4-8.2)
[2019-08-28] MEDS: polyethylene glycoL POWDER 17 GM (MIRALAX) PACK PO SCH ×3 (06:46→21:14)
[2019-08-28 07:30] VITALS: BP 130/82
[2019-08-28] MEDS: PANTOPRAZOLE 40 MG (PROTONIX) VIAL IV SCH (08:40)
[2019-08-28] MEDS: busPIRone 15 MG (BUSPAR) TABLET PO SCH ×2 (08:40→20:00)
[2019-08-28] MEDS: LORazepam INJ 2 MG/ML (ATIVAN) VIAL IVP PRN (08:46)
[2019-08-28] MEDS ORDERED: D5 1/2 NS W/KCL 40 MEQ/L 1,000 ML IV SCH (09:45)
--- NOTE | 2019-08-28 09:49 | Progress Note - Surgery ---
Subjective Time Seen by a Provider: 09:34 Subjective/Events-last exam Pt seen and examined, states he is tolerting diet and had a BM today. He thinks the RLQ pain is better, but still there. Review of Systems General: No Chills, No Night Sweats Pulmonary: No Dyspnea, No Cough Cardiovascular: No: Chest Pain, Palpitations Gastrointestinal: Abdominal Pain; No: Nausea, Vomiting Genitourinary: Hematuria Objective Exam Vital Signs Date Time Temp Pulse Resp B/P (MAP) Pulse Ox O2 Delivery O2 Flow Rate FiO2 08/28/19 08:00 98 Room Air 08/28/19 07:30 36.9 108 20 130/82 (98) 98 Room Air 08/28/19 04:45 37.7 81 18 128/62 (84) 95 Room Air 08/28/19 00:10 37.6 99 18 117/55 (75) 93 Room Air 08/27/19 20:00 Room Air 08/27/19 19:46 36.4 62 18 149/87 (107) 98 Room Air 08/27/19 15:26 36.6 77 18 131/80 (97) 97 Room Air 08/27/19 11:27 37.2 74 16 155/89 (111) 99 Room Air I & O0 08/28/19 06:59 Intake Total 4320 ml Output Total 2050 ml Balance 2270 ml Capillary Refill : Less Than 3 SecondsLess Than 3 Seconds General Appearance: No Apparent Distress, WD/WN HEENT: Moist Mucous Membranes; No Scleral Icterus (L), No Scleral Icterus (R) Respiratory: Normal Breath Sounds, No Accessory Muscle Use, No Respiratory Distress, Crackles (at bases) Cardiovascular: Regular Rate, Rhythm, No Edema, No Murmur Gastrointestinal: soft, tenderness (RLQ -better than before) Neurologic/Psychiatric: Alert, Oriented x3 Skin: Normal Color, Warm/Dry Results Lab Laboratory Tests 08/28/19 05:05: White Blood Count 6.4, Red Blood Count 3.24L, Hemoglobin 9.0L, Hematocrit 27L, Mean Corpuscular Volume 83, Mean Corpuscular Hemoglobin 28, Mean Corpuscular Hemoglobin Concent 33, Red Cell Distribution Width 13.5, Platelet Count 270, Mean Platelet Volume 10.1, Neutrophils (%) (Auto) 53, Lymphocytes (%) (Auto) 35, Monocytes (%) (Auto) 11, Eosinophils (%) (Auto) 1, Basophils (%) (Auto) 0, Neutrophils # (Auto) 3.4, Lymphocytes # (Auto) 2.3, Monocytes # (Auto) 0.7, Eosinophils # (Auto) 0.1, Basophils # (Auto) 0.0, Sodium Level 141, Potassium Level 3.3L, Chloride Level 110H, Carbon Dioxide Level 22, Anion Gap 9, Blood Urea Nitrogen 4L, Creatinine 1.21, Estimat Glomerular Filtration Rate > 60, BUN/Creatinine Ratio 3, Glucose Level 108H, Calcium Level 7.0L, Corrected Calcium 8.3L, Total Bilirubin 0.5, Aspartate Amino Transf (AST/SGOT) 16, Alanine Aminotransferase (ALT/SGPT) 22, Alkaline Phosphatase 43, Total Protein 4.8L, Albumin 2.4L Microbiology 08/22/19 Blood Culture - Preliminary, Resulted No growth Assessment/Plan Assessment/Plan Assessment/Plan RLQ pain - improving Enteritis - about the same on repeat CT Leukocytosis -resolved Acute Renal insufficiency - resolved Elevated Liver enzymes - resolving Anemia - unknown etiology Hematuria - Urology consulted, has not had another episoded Hypokalemia - replacing in IV Tolerating diet and ambulating, pt encouraged to use IS more and will have RT work with pt. Continue IV fluids with added Potassium. Check labs in AM CT seemed to possibly show an Entero-Enteral Fistula; with inflammation about the same. I told pt about this CT finding; which even if true would not require surgical intervention at this time (especially since pain is improving). Will replace K+ and probably discharge pt in the morning. Ativan ordered for anxiety. Clinical Quality Measures DVT/VTE Risk/Contraindication: Risk Factor Score Per Nursin RFS Level Per Nursing on Admit: 4+=Very High NKECHI MCGRATH DO Aug 28, 2019 09:49
[2019-08-28] MEDS: predniSONE 20 MG TAB PO SCH (11:09)
--- NOTE | 2019-08-28 12:11 | CONSULTATION REPORT ---
DATE OF SERVICE: 08/28/2019 ATTENDING PHYSICIAN: Dr. Garcia. SUMMARY: A 59-year-old black man admitted with right lower quadrant pain, underwent a noncontrast CT scan abdomen and pelvis that was negative for abnormalities, pain slightly improved. He then developed one episode of gross hematuria and then had microscopic hematuria. Another CT scan of the chest, abdomen and pelvis was performed and again was negative for abnormalities. The patient denies any voiding symptoms before or after. Denies any associated voiding symptoms with hematuria. He is not a smoker. IMPRESSION: Gross hematuria x1 with microscopic hematuria. PLAN: In view of one episode and negative CT scan. We could hold off for the time being on cystoscopy especially with the viral problem circulating [place] the country. We will follow his urinalysis to follow his microscopic hematuria. If he develops again gross hematuria, then we would have a reason to scope him flexible under local. However, if it disappears completely including microscopic hematuria, we will hold off until we can complete the workup with difficile flexible cystoscopy. The plan was fully explained to the patient as well as the possible cystoscopy procedure if undertaken. Job ID: [id number] DocumentID: [id number] Dictated Date: 08/28/2019 09:43:41 Herbologist Date: 08/28/2019 11:07:12 Dictated By: OSCAR VILLEDA MD
[2019-08-28] MEDS ORDERED: LORazepam 0.5 MG (ATIVAN) TABLET PO PRN (12:15)
[2019-08-28 15:21] VITALS: BP 162/90
[2019-08-28] MEDS: HYDROcodone/APAP 10 MG/325 MG (LORTAB) TAB PO PRN ×2 (15:41→19:59)
--- NOTE | 2019-08-28 17:17 | Progress Note ---
Subjective Subjective/Events-last exam Afebrile, continues to have abdominal pain, which is somewhat decreased but still present. Objective Exam Last Set of Vital Signs Vital Signs Date Time Temp Pulse Resp B/P (MAP) Pulse Ox O2 Delivery O2 Flow Rate FiO2 08/28/19 15:21 36.5 99 20 162/90 (114) 97 Room Air Capillary Refill : Less Than 3 SecondsLess Than 3 Seconds I&O Intake and Output 08/28/19 00:00 Intake Total 3755 ml Output Total 2100 ml Balance 1655 ml Intake Oral 2755 ml IV Total 1000 ml Output Urine Total 2100 ml # Voids 3 General: Alert, No Acute Distress Lungs: Clear to Auscultation, Normal Air Movement Heart: Regular Rate, No Murmurs Abdomen: Normal Bowel Sounds, Other (slightly distended, diffuse ttp, greatest in RLQ) Neuro: Normal Speech Psych/Mental Status: Mental Status NL Results/Procedures Lab Laboratory Tests 08/28/19 05:05: White Blood Count 6.4, Red Blood Count 3.24L, Hemoglobin 9.0L, Hematocrit 27L, Mean Corpuscular Volume 83, Mean Corpuscular Hemoglobin 28, Mean Corpuscular Hemoglobin Concent 33, Red Cell Distribution Width 13.5, Platelet Count 270, Mean Platelet Volume 10.1, Neutrophils (%) (Auto) 53, Lymphocytes (%) (Auto) 35, Monocytes (%) (Auto) 11, Eosinophils (%) (Auto) 1, Basophils (%) (Auto) 0, Neutrophils # (Auto) 3.4, Lymphocytes # (Auto) 2.3, Monocytes # (Auto) 0.7, Eosinophils # (Auto) 0.1, Basophils # (Auto) 0.0, Sodium Level 141, Potassium Level 3.3L, Chloride Level 110H, Carbon Dioxide Level 22, Anion Gap 9, Blood Urea Nitrogen 4L, Creatinine 1.21, Estimat Glomerular Filtration Rate > 60, BUN/Creatinine Ratio 3, Glucose Level 108H, Calcium Level 7.0L, Corrected Calcium 8.3L, Total Bilirubin 0.5, Aspartate Amino Transf (AST/SGOT) 16, Alanine Aminotransferase (ALT/SGPT) 22, Alkaline Phosphatase 43, Total Protein 4.8L, Albumin 2.4L Microbiology 08/22/19 Blood Culture - Final, Complete No growth Radiology CT CHEST/ABDOMEN/PELVIS WO PROCEDURE: CT chest, abdomen, and pelvis without contrast. TECHNIQUE: Multiple contiguous axial images were obtained through the chest, abdomen, and pelvis without the use of intravenous contrast. Auto Exposure Controls were utilized during the CT exam to meet ALARA standards for radiation dose reduction. INDICATION: Chest pain. Shortness of breath. Comparison with CT angiogram of the chest from 05/02/2019. FINDINGS: CT CHEST: The lungs are well-aerated. No infiltrates have developed. There is some mild discoid atelectasis in the lung bases more prominent on the left. The heart is not enlarged. No pleural effusion. No mediastinal or hilar adenopathy of pathologic size. No blastic or lytic bony lesion. IMPRESSION: Basilar atelectasis otherwise negative. CT ABDOMEN AND PELVIS: There is thickening of the small bowel wall rather focal in nature in the right lower quadrant with associated stranding and edema in the mesentery. Mild mesenteric adenopathy present. There is no evidence of obstructive process. The remainder of the small bowel appears normal. The colon shows normal stool and gas pattern without evidence of constipation or diverticulitis. No evidence of appendicitis. There is no free air or free fluid. The liver and gallbladder appear normal. Pancreas is normal. Spleen is normal. The adrenal glands and kidneys appear normal. No pelvic masses. No blastic or lytic bony changes. IMPRESSION: 1. There is segmental thickening of the small bowel loops right lower quadrant within the ileum with associated mesenteric edema and mild adenopathy of the mesentery. These are most likely secondary to focal inflammatory process. Underlying malignancy cannot be excluded. These findings are concordant with the preliminary report. Dictated by: Dictated on workstation # [id number] Dict: 08/23/1939 Trans: 08/23/19822 [facility] [id number] Interpreted by: NKECHI JONES MD Electronically signed by: NKECHI JONES MD 08/23/19 0823 Assessment/Plan Assessment/Plan (1) small bowel inflammation in rlq Status: Acute Assessment & Plan: Appreciate Surgery recommendations. Appears to be clinically improving. (2) Acute renal failure Status: Resolved (3) Elevated liver enzymes Status: Resolved (4) Anxiety (5) Depression Assessment & Plan: Resume home behavioral health medications Clinical Quality Measures DVT/VTE Risk/Contraindication: Risk Factor Score Per Nursin RFS Level Per Nursing on Admit: 4+=Very High CATY WALKER MD Aug 28, 2019 17:17
[2019-08-28] MEDS: QUEtiapine 200 MG (SEROquel) TAB IMMEDIATE RELEASE PO SCH (20:02)
[2019-08-29 00:05] VITALS: BP 114/56
[2019-08-29 05:27] LABS: HEMATOCRIT 27 % (40-54); MEAN CORPUSCULAR HEMOGLOBIN 28 PG (25-34); MEAN CORPUSCULAR HGB CONC 33 G/DL (32-36); MEAN CORPUSCULAR VOLUME 83 FL (80-99); MEAN PLATELET VOLUME 9.8 FL (7.4-10.4); PLATELET COUNT 295 10^3/uL (130-400); RED CELL DISTRIBUTION WIDTH 13.7 % (10.0-14.5); WHITE BLOOD COUNT 9.4 10^3/uL (4.3-11.0)
[2019-08-29 05:51] LABS: ALANINE AMINOTRANSFERASE 19 U/L (0-55); ALBUMIN 2.6 GM/DL (3.2-4.5); ALKALINE PHOSPHATASE 44 U/L (40-136); BILIRUBIN,TOTAL 0.4 MG/DL (0.1-1.0); BUN/CREATININE RATIO 4; CALCIUM 7.2 MG/DL (8.5-10.1); CARBON DIOXIDE 20 MMOL/L (21-32); CHLORIDE 110 MMOL/L (98-107); CREATININE SERUM 1.14 MG/DL (0.60-1.30); GFR ESTIMATED > 60; GLUCOSE 105 MG/DL (70-105); POTASSIUM 3.5 MMOL/L (3.6-5.0); SODIUM 140 MMOL/L (135-145)
[2019-08-29] MEDS: predniSONE 20 MG TAB PO SCH (06:09)
[2019-08-29] MEDS ORDERED: KCL 10 MEQ TAB (MICRO K) PO SCH (07:00)
[2019-08-29 08:00] VITALS: BP 134/78
[2019-08-29] MEDS ORDERED: PANTOPRAZOLE 40 MG (PROTONIX) TAB PO SCH (09:00)
[2019-08-29 09:02] LABS: ABSOLUTE RETIC # 93 10e9/L (24-90); BASOPHILS % (AUTO) 0 % (0-10); EOSINOPHILS # (AUTO) 0.1 10^3/uL (0.0-0.3); EOSINOPHILS % (AUTO) 1 % (0-10); LYMPHOCYTES # (AUTO) 2.3 X 10^3 (1.0-4.0); LYMPHOCYTES % (AUTO) 24 % (12-44); MONOCYTES # (AUTO) 0.9 X 10^3 (0.0-1.0); MONOCYTES % (AUTO) 10 % (0-12); NEUTROPHILS # (AUTO) 6.3 X 10^3 (1.8-7.8); NEUTROPHILS % (AUTO) 66 % (42-75); RETICULOCYTE % 2.79 % (0.50-2.40)
[2019-08-29 09:30] LABS: BAND NEUTROPHILS 0 %; BASOPHILS % (MANUAL) 0 %; EOSINOPHILS % (MANUAL) 0 %; LYMPHOCYTES % (MANUAL) 26 %; MONOCYTES % (MANUAL) 5 %; NEUTROPHILS % (MANUAL) 69 %; RBC MORPH NORMAL
[2019-08-29] MEDS: busPIRone 15 MG (BUSPAR) TABLET PO SCH (09:31)
[2019-08-29] MEDS: polyethylene glycoL POWDER 17 GM (MIRALAX) PACK PO SCH (09:31)
--- NOTE | 2019-08-29 10:15 | NUR ---
CM/SS visited with the patient. The patient states that he is a patient of [facility] in [place], [place] and his primary care is Juancarlos Goss. The patient states that he does not use the [facility] pharmacy. He uses [facility] due to having a medical card. The patient reports that with Medicaid he is able to get his medications for free. CM/SS asked if his monthly amount was sufficient to take care of his needs. He verbalized "yes". He reports that he does not have any needs for discharge or questions at this time.
--- NOTE | 2019-08-29 10:57 | Progress Note - Urology ---
Progress Note-Urology Progress Notes/Assess & Plan Progress/Assessment & Plan NO GROSS HEMATURIA. WE WILL CHECK UA IN AM TOMORROW Final Diagnosis GROSS HEMATURIA OSCAR VILLEDA MD Aug 29, 2019 10:57
--- NOTE | 2019-08-29 11:05 | NUR ---
"RD ASSESSMENT PMHx: hypercholesterolemia; hx of ETOH/methamphetamine/THC/tobacco use PT INTERACTION: Pt was awake and pleasant during nutrition assessment for LOS. Pt states current appetite is good. Note avg PO intake >75% x3d, per chart review. Pt states following regular diet at home and has no issues with chewing/swallowing food. Pt states no recent issues with n/v/c/d at this time. Note last BM was 08/27 and pt currently on bowel regimen of Miralax BID, per chart review. Pt states unsure of recent wt changes. Note recent 21# wt loss x4mon, per chart review. ABNORMAL NUTRITION-RELATED LAB VALUES LOW: K 3.5; BUN 5; Ca 7.2; Pro 5.0; alb 2.6 HIGH: Cl 110 Est. kcal needs: 4141-8856 kcal | 15-20 kcal/kg Est. Pro needs: 87-108 g Pro | 0.8-1.0 g Pro/kg PES STATEMENT: Given current PO intake, no nutrition diagnosis at this time (NO-1.1) INTERVENTION: Continue with current diet order of DYS3 Advanced/Ground Meat diet. Would recommend advancing diet to Regular as pt has no current difficulties chewing/swallowing food. Will continue to follow and reassess as pt needs, intake, and status change. MONITOR/EVALUATE: PO Intake; Plan of Care; Hydration Status; Weight Status; Lab Values Gamaliel Zavala, MS, RD, LD"
--- NOTE | 2019-08-29 11:44 | Progress Note ---
Subjective Subjective/Events-last exam Afebrile, continues to have RLQ pain, stable. Reports normal BM, eating and drinking okay. Objective Exam Last Set of Vital Signs Vital Signs Date Time Temp Pulse Resp B/P (MAP) Pulse Ox O2 Delivery O2 Flow Rate FiO2 08/29/19 08:00 37.0 91 16 134/78 (96) 98 Room Air Capillary Refill : Less Than 3 SecondsLess Than 3 Seconds I&O Intake and Output 08/29/19 00:00 Intake Total 3280 ml Output Total 1450 ml Balance 1830 ml Intake Oral 2160 ml IV Total 1120 ml Output Urine Total 1450 ml # Voids 3 # Bowel Movements 1 General: Alert, No Acute Distress Lungs: Clear to Auscultation, Normal Air Movement Heart: Regular Rate, No Murmurs Abdomen: Normal Bowel Sounds, Soft, Other (diffuse ttp, greatest on right) Extremities: No Edema Neuro: Normal Speech Psych/Mental Status: Mental Status NL Results/Procedures Lab Laboratory Tests 08/29/19 05:17: White Blood Count 9.4, Red Blood Count 3.27L, Hemoglobin 9.0L, Hematocrit 27L, Mean Corpuscular Volume 83, Mean Corpuscular Hemoglobin 28, Mean Corpuscular Hemoglobin Concent 33, Red Cell Distribution Width 13.7, Platelet Count 295, Mean Platelet Volume 9.8, Neutrophils (%) (Auto) 66, Lymphocytes (%) (Auto) 24, Monocytes (%) (Auto) 10, Eosinophils (%) (Auto) 1, Basophils (%) (Auto) 0, Neutrophils # (Auto) 6.3, Lymphocytes # (Auto) 2.3, Monocytes # (Auto) 0.9, Eosinophils # (Auto) 0.1, Basophils # (Auto) 0.0, Neutrophils % (Manual) 69, Lymphocytes % (Manual) 26, Monocytes % (Manual) 5, Eosinophils % (Manual) 0, Basophils % (Manual) 0, Band Neutrophils 0, Blood Morphology Comment NORMAL, Absolute Reticulocyte Count 93H, Percent Reticulocyte Count 2.79H, Sodium Level 140, Potassium Level 3.5L, Chloride Level 110H, Carbon Dioxide Level 20L, Anion Gap 10, Blood Urea Nitrogen 5L, Creatinine 1.14, Estimat Glomerular Filtration Rate > 60, BUN/Creatinine Ratio 4, Glucose Level 105, Calcium Level 7.2L, Corrected Calcium 8.3L, Total Bilirubin 0.4, Aspartate Amino Transf (AST/SGOT) 13, Alanine Aminotransferase (ALT/SGPT) 19, Alkaline Phosphatase 44, Total Protein 5.0L, Albumin 2.6L Microbiology 08/22/19 Blood Culture - Final, Complete No growth Radiology CT CHEST/ABDOMEN/PELVIS WO PROCEDURE: CT chest, abdomen, and pelvis without contrast. TECHNIQUE: Multiple contiguous axial images were obtained through the chest, abdomen, and pelvis without the use of intravenous contrast. Auto Exposure Controls were utilized during the CT exam to meet ALARA standards for radiation dose reduction. INDICATION: Chest pain. Shortness of breath. Comparison with CT angiogram of the chest from 05/02/2019. FINDINGS: CT CHEST: The lungs are well-aerated. No infiltrates have developed. There is some mild discoid atelectasis in the lung bases more prominent on the left. The heart is not enlarged. No pleural effusion. No mediastinal or hilar adenopathy of pathologic size. No blastic or lytic bony lesion. IMPRESSION: Basilar atelectasis otherwise negative. CT ABDOMEN AND PELVIS: There is thickening of the small bowel wall rather focal in nature in the right lower quadrant with associated stranding and edema in the mesentery. Mild mesenteric adenopathy present. There is no evidence of obstructive process. The remainder of the small bowel appears normal. The colon shows normal stool and gas pattern without evidence of constipation or diverticulitis. No evidence of appendicitis. There is no free air or free fluid. The liver and gallbladder appear normal. Pancreas is normal. Spleen is normal. The adrenal glands and kidneys appear normal. No pelvic masses. No blastic or lytic bony changes. IMPRESSION: 1. There is segmental thickening of the small bowel loops right lower quadrant within the ileum with associated mesenteric edema and mild adenopathy of the mesentery. These are most likely secondary to focal inflammatory process. Underlying malignancy cannot be excluded. These findings are concordant with the preliminary report. Dictated by: Dictated on workstation # [id number] Dict: 08/23/1939 Trans: 08/23/19822 [facility] [id number] Interpreted by: NKECHI JONES MD Electronically signed by: NKECHI JONES MD 08/23/19822 Assessment/Plan Assessment/Plan (1) small bowel inflammation in rlq Status: Acute Assessment & Plan: Appreciate Surgery recommendations. Appears to be clinically improving. Treated with zosyn x 5 days. (2) Acute renal failure Status: Resolved (3) Elevated liver enzymes Status: Resolved (4) Anxiety (5) Depression Assessment & Plan: Resume home behavioral health medications (6) Anemia Status: Acute Assessment & Plan: Check iron studies and peripheral smear. (7) Hematuria Assessment & Plan: Isolated episode, CT did not show renal/ureter pathology, Urology consulted, will need cystoscopy if recurs. Clinical Quality Measures DVT/VTE Risk/Contraindication: Risk Factor Score Per Nursin RFS Level Per Nursing on Admit: 4+=Very High CATY WALKER MD Aug 29, 2019 11:44
[2019-08-29] MEDS ORDERED: METH4TAB10 PO (11:57)
[2019-08-29] MEDS ORDERED: ACHYD1T PO (11:57)
--- NOTE | 2019-08-29 11:59 | Discharge Inst-Surgical ---
Discharge Inst-Surgical Depart Medication/Instructions New, Converted or Re-Newed RX: Other (Rx given to pt and called in to pharmacy) Patient Instructions Follow up Appt: Make appointment for 1 week. [phone] Instructions: No strenuous activity. May shower or tub bath. Use incentive spirometer at home as directed. No Smoking Symptoms to Report: Appetite Changes, Extremity Discoloration, Numbness/Tingling, Swelling Increased, Bleeding Excessive, Eyesight Changes, Pain Increased, Urine Color Change, Constipation(Persistent), Fever over 101 degree F, Pain/Pressure in chest, Urinating Difficulty, Cough Up/Vomit Blood, Heart Beat Irreg/Pounding, Pain/Pressure in jaw, Cramps in feet or legs, Lightheadedness, Pain/Pressure in shoulder, Diarrhea(Persistent), Memory Changes Suddenly, Questions/Concerns, Weight gain consecutive days, Dizziness/Fainting, Nausea/Vomiting, Shortness of Breath, Weight gain over 2 pounds If questions or concerns contact your physician Or seek help at emergency department. Activity Activity as Tolerated: Yes Driving Instructions: You May Drive Diet Discharge Diet: Eat Small Frequent Meals Diet After 24 Hours: Clear Liquid if Nauseous If Any Problems/Questions/Issu: Contact Your Physician, Go to Emergency Room Skin/Wound Care Infection Signs and Symptoms: Increased Swelling, Temperature Above 101 F Bathing Instructions: NKECHI Rod DO Aug 29, 2019 11:59
--- NOTE | 2019-08-29 12:01 | Discharge Summary ---
Diagnosis/Chief Complaint Date of Admission Aug 23, 2019 at 00:50 Date of Discharge 08/29/2019 Admission Diagnosis Admission Diagnosis RLQ pain Enteritis Leukocytosis Acute Renal insufficiency Elevated Liver enzymes Discharge Diagnosis RLQ pain Enteritis Leukocytosis -resolved Acute Renal insufficiency - resolved Elevated Liver enzymes - resolving Anemia - unknown etiology Hematuria - Urology consulted, has not had another episode Hypokalemia Reason Hospital Visit Surgery asked to admit pt secondary to RLQ pain and enteritis. HPI per ED: PT ARRIVES VIA POV FROM HOME, C/O RLQ PAIN X 1 WEEK, C/O NAUSEA, VOMITING AND DIARRHEA X 1 WEEK--STATES HE CAN'T KEEP WATER DOWN, AND HAS VOMITED X 2 TODAY. NO HEMATEMESIS OR COFFEE-GROUND EMESIS. HAS NOT HAD A BM IN 2 DAYS, NOT PASSING GAS FOR 2 DAYS. NO BLACK/BLOODY/TARRY STOOLS. STATES PAIN IS CONSTANT AND NOTHING WORSENS OR IMPROVES PAIN, C/O DECREASE URINE OUTPUT AND HAS TO STRAIN TO URINATE. HAS NOT CHECKED TEMP, BUT STATES "I BEEN RUNNIN' HOT", STATES "WHEN IT COUGH IT GOES TO MY CHEST"--STATES HIS CHEST HURTS IF HE COUGHS. BUT ALSO STATES NO SIGNIFICANT COUGH, NO CHEST PAIN OTHERWISE NO SHORTNESS OF BREATH AT ANY TIME, NO SWEATS, NO SWELLING IN LEGS/FEET OR PAIN IN CALVES, NO PALPITATIONS, NO DIZZINESS OR SYNCOPE. HAS NOT SOUGHT CARE UNTIL TONIGHT, SYMPTOMS NO DIFFERENT TONIGHT IN ANY WAY HAS NOT TAKEN ANYTHING FOR SYMPTOMS, STATES HIS "FAMILY MADE HIM COME HERE TONIGHT", NO HISTORY OF CARDIAC OR PULMONARY OR GI PROBLEMS, NO SICK CONTACTS OR RECENT TRAVEL. NO SUSPICIOUS FOODS When I spoke to pt this am he denies any previous episodes of pain like this and states he has never really had abdominal pain. Pt states the pain today is about the same as yesterday, maybe slightly worse. He rates it as an 8 out of 10, constant and not really radiating anywhere. He states he has not really been able to eat for the past week because of N/V, but is hungry today and would like to at least drink something. Discharge Summary Discharge Physical Examination Allergies: Coded Allergies: No Known Drug Allergies (Unverified , 07/29/09) Vitals & I&Os Vital Signs Date Time Temp Pulse Resp B/P (MAP) Pulse Ox O2 Delivery O2 Flow Rate FiO2 08/29/19 08:00 Room Air 08/29/19 08:00 37.0 91 16 134/78 (96) 98 General Appearance: Alert, Oriented X3 Respiratory: Clear to Auscultation, Normal Air Movement Cardiovascular: Regular Rate, No Murmurs Abdominal: Normal Bowel Sounds, Soft, Other (mild tenderness in RLQ) Neuro: Normal Gait, Normal Speech Psych/Mental Status: Mental Status NL Hospital Course Patient is a 59-year-old male who presented to the emergency room with abdominal pain CAT scan performed and noted to have a enteritis due to inflammation in the right lower quadrant with some thickened small bowel. He also had multiple medical conditions including acute kidney insufficiency thought to be possibly chronic renal failure he developed a leukocytosis and was admitted and made nothing by mouth for possible endoscopy or surgical procedure. He also had elevated liver function and some mild hyperglycemia. He was started on IV fluids, pain control and antibiotics as needed. Attempted to feed him on the first day but this increases abdominal pain and his white count shot up and developed a leukocytosis so he stopped oral intake. Given IV fluids a lot of I without abnormalities that were replaced. Patient improved very very slowly finally able to started liquid diet and then advanced. Over the weekend he had an episode of hematuria and consults for hospitalist and urology were ordered. Finally over the last couple days his pain has decreased a little bit started steroids for the enteritis and elected to discharge her home today. Please see progress notes for more detail. Patient was otherwise sent home in stable condition to follow-up in a week; there was a possibility of enteroenteric fistula but we'll monitor this condition. He may need to do a small bowel follow-through or even diagnostic laparoscopy. All questions answered to patient's satisfaction. Pending Labs Discharge Instructions to patient/family Please see electronic discharge instructions given to patient. Discharge Medications Reviewed and agree with Discharge Medication list on patient's Discharge Instruction sheet Clinical Quality Measures DVT/VTE Risk/Contraindication: Risk Factor Score Per Nursin RFS Level Per Nursing on Admit: 4+=Very High NKECHI MCGRATH DO Aug 29, 2019 12:01
== END 2019-08-29 14:10 | disposition home or self-care (01) | DRG 872 ==
LOC: EDUNIT# 21:30 → ER 21:31 → 4TH 08-23 00:50
PROVIDERS: ADMIT Surgery; ATTEND Surgery
DX: A41.9 Sepsis, unspecified organism (principal); K52.9 Noninfective gastroenteritis and colitis, unspecified; N17.9 Acute kidney failure, unspecified; E86.0 Dehydration; N18.9 Chronic kidney disease, unspecified; R31.0 Gross hematuria; D64.9 Anemia, unspecified; K59.00 Constipation, unspecified; E87.6 Hypokalemia; R07.9 Chest pain, unspecified; R74.8 Abnormal levels of other serum enzymes; F17.210 Nicotine dependence, cigarettes, uncomplicated; E78.00 Pure hypercholesterolemia, unspecified; I49.9 Cardiac arrhythmia, unspecified; M54.9 Dorsalgia, unspecified; F41.9 Anxiety disorder, unspecified; F31.9 Bipolar disorder, unspecified; F15.90 Other stimulant use, unspecified, uncomplicated
CPT/HCPCS: 36415; 71045; 71250; 74176; 80053; 80074; 80306; 80320; 80329; 81000; 82150; 82550; 82553; 82728; 83540; 83605; 83690; 83735; 83874; 83880; 84484; 85007; 85025; 85027; 85045; 85610; 85730; 86703; 87040; 87804; 93005; 93041; 94664; 96361; 96365; 96375

== ENCOUNTER → 2019-09-05 | Outpatient (CLI) | payer MEDICAID ==
[~2019-09-05] MED LIST changes: +ACHYD1T PO; +BUSP15TA60 PO; +METH4TAB10 PO; +QUET200T29 PO
== END ==
LOC: LAB 10:06
PROVIDERS: ATTEND Surgery
DX: Z01.89 Encounter for other specified special examinations (principal)
CPT/HCPCS: 36415; 86021; 86671

== ENCOUNTER 2019-09-13 18:57 | Inpatient (IN) | payer MEDICAID ==
[~2019-09-13] VITALS: Ht 182 cm; Wt 108.4 kg
[2019-09-13 19:29] LABS: BASOPHILS % (AUTO) 0 % (0-10); EOSINOPHILS # (AUTO) 0.1 10^3/uL (0.0-0.3); EOSINOPHILS % (AUTO) 1 % (0-10); HEMATOCRIT 36 % (40-54); HEMOGLOBIN 12.2 G/DL (13.3-17.7); LYMPHOCYTES # (AUTO) 2.5 X 10^3 (1.0-4.0); LYMPHOCYTES % (AUTO) 35 % (12-44); MEAN CORPUSCULAR HEMOGLOBIN 28 PG (25-34); MEAN CORPUSCULAR HGB CONC 34 G/DL (32-36); MEAN CORPUSCULAR VOLUME 85 FL (80-99); MEAN PLATELET VOLUME 10.3 FL (7.4-10.4); MONOCYTES # (AUTO) 0.5 X 10^3 (0.0-1.0); MONOCYTES % (AUTO) 7 % (0-12); NEUTROPHILS % (AUTO) 56 % (42-75); PLATELET COUNT 346 10^3/uL (130-400); RED CELL DISTRIBUTION WIDTH 14.9 % (10.0-14.5); WHITE BLOOD COUNT 7.1 10^3/uL (4.3-11.0)
[2019-09-13] MEDS ORDERED: NS IV 1000 ML 1,000 ML IV SCH (19:30)
[2019-09-13] MEDS ORDERED: LORazepam INJ 2 MG/ML (ATIVAN) VIAL IVP ONE (19:30)
[2019-09-13] MEDS ORDERED: KETOROLAC 30 MG/ML VIAL IVP ONE (19:30)
[2019-09-13 19:31] LABS: ALBUMIN 3.4 GM/DL (3.2-4.5)
[2019-09-13 19:32] LABS: CHLORIDE 110 MMOL/L (98-107); POTASSIUM 4.2 MMOL/L (3.6-5.0); SODIUM 142 MMOL/L (135-145)
[2019-09-13 19:33] LABS: CALCIUM 8.4 MG/DL (8.5-10.1)
[2019-09-13 19:34] LABS: GLUCOSE 103 MG/DL (70-105); TOTAL PROTEIN 6.6 GM/DL (6.4-8.2)
[2019-09-13 19:35] LABS: CARBON DIOXIDE 19 MMOL/L (21-32)
[2019-09-13 19:36] LABS: BILIRUBIN,TOTAL 0.4 MG/DL (0.1-1.0)
[2019-09-13 19:37] LABS: ALKALINE PHOSPHATASE 91 U/L (40-136)
[2019-09-13 19:38] LABS: CREATININE SERUM 1.28 MG/DL (0.60-1.30); GFR ESTIMATED > 60
--- NOTE | 2019-09-13 19:38 | ED Abdominal Pain ---
General Chief Complaint: Abdominal/GI Problems Stated Complaint: RLQ PAIN Source of Information: Patient Exam Limitations: No Limitations History of Present Illness Date Seen by Provider: Sep 13, 2019 Time Seen by Provider: 19:36 Initial Comments To ER with ongoing right lower quadrant abdominal pain that has gotten worse starting today. No nausea no vomiting. He was here admitted to the hospital for a few days for this a couple of weeks ago. Bending forward seems to help the pain. Timing/Duration: Getting Worse Severity/Quality: Moderate Location: Suprapubic Radiation: No Radiation Activities at Onset: None Associated Symptoms: Denies Symptoms Allergies and Home Medications Allergies Coded Allergies: No Known Drug Allergies (Unverified , 07/29/09) Home Medications Buspirone HCl 15 Mg Tablet, 15 MG PO BID, (Reported) Hydrocodone Bit/Acetaminophen 1 Ea Tab, 1 EA PO Q4H PRN for PAIN-MODERATE (5-7) Prescribed by: NKECHI MCGRATH on 08/29/19 1157 Methylprednisolone 4 Mg Tab.ds.pk, 4 MG PO UD PER DOSE PACK INSTRUCTIONS Prescribed by: NKECHI MCGRATH on 08/29/19 1157 Quetiapine Fumarate 200 Mg Tablet, 400 MG PO HS, (Reported) TAKES 2 (200MG) TABS TO EQUAL 400MG AT BEDTIME Patient Home Medication List Home Medication List Reviewed: Yes Review of Systems Review of Systems Constitutional: see HPI; No chills, No fever EENTM: No Symptoms Reported Respiratory: See HPI; Denies Cough Cardiovascular: Denies See HPI Gastrointestinal: See HPI, Abdominal Pain; Denies Constipated, Denies Diarrhea, Denies Nausea Genitourinary: No Symptoms Reported Musculoskeletal: no symptoms reported Skin: no symptoms reported Psychiatric/Neurological: No Symptoms Reported Endocrine: No Symptoms Reported Hematologic/Lymphatic: No Symptoms Reported Past Iroxpcf-Qbjylk-Ayfzre Hx Patient Social History Drug of Choice: THC, UDS+ FOR AMPHETAMINES/METH AMPHETAMINES 08/22/19 Type Used: Cigarettes Recent Foreign Travel: No Contact w/Someone Who Travel: No Immunizations Up To Date Tetanus Booster (TDap): Unknown PED Vaccines UTD: Yes Seasonal Allergies Seasonal Allergies: No Past Medical History Surgeries: Yes (KELOID REMOVAL; BACK SURGERY) Orthopedic Respiratory: No Cardiac: Yes High Cholesterol, Irregular Heartbeat Neurological: No Reproductive Disorders: No Sexually Transmitted Disease: No HIV/AIDS: No Genitourinary: No Gastrointestinal: No Musculoskeletal: Yes (BACK SURGERY) Chronic Back Pain Endocrine: No HEENT: No Hearing Impairment: Denies Cancer: No Psychosocial: Yes Anxiety, Bipolar, Depression Integumentary: Yes (KELOIDS--S/P REMOVAL) Blood Disorders: No Family Medical History Patient reports no known family medical history. Other Conditions/Hx Physical Exam Vital Signs Capillary Refill : Height/Weight/BMI Height: 6'3.00" Weight: 265lbs. oz. [phone]; 30.99 BMI Method:Stated General Appearance: WD/WN, moderate distress (anxious appearing, fidgety, unable to sit still.) Neck: non-tender, full range of motion Respiratory: no respiratory distress, no accessory muscle use Cardiovascular: no murmur, tachycardia Gastrointestinal: normal bowel sounds, soft, tenderness Extremities: normal range of motion, non-tender Neurologic/Psychiatric: alert, normal mood/affect, oriented x 3 Skin: normal color, warm/dry Progress/Results/Core Measures Results/Orders Lab Results Laboratory Tests Test 09/13/19 19:16 Range/Units White Blood Count 7.1 4.3-11.0 10^3/uL Red Blood Count 4.30 L 4.35-5.85 10^6/uL Hemoglobin 12.2 L 13.3-17.7 G/DL Hematocrit 36 L 40-54 % Mean Corpuscular Volume 85 80-99 FL Mean Corpuscular Hemoglobin 28 25-34 PG Mean Corpuscular Hemoglobin Concent 34 32-36 G/DL Red Cell Distribution Width 14.9 H 10.0-14.5 % Platelet Count 346 130-400 10^3/uL Mean Platelet Volume 10.3 7.4-10.4 FL Neutrophils (%) (Auto) 56 42-75 % Lymphocytes (%) (Auto) 35 12-44 % Monocytes (%) (Auto) 7 0-12 % Eosinophils (%) (Auto) 1 0-10 % Basophils (%) (Auto) 0 0-10 % Neutrophils # (Auto) 4.0 1.8-7.8 X 10^3 Lymphocytes # (Auto) 2.5 1.0-4.0 X 10^3 Monocytes # (Auto) 0.5 0.0-1.0 X 10^3 Eosinophils # (Auto) 0.1 0.0-0.3 10^3/uL Basophils # (Auto) 0.0 0.0-0.1 10^3/uL Sodium Level 142 135-145 MMOL/L Potassium Level 4.2 3.6-5.0 MMOL/L Chloride Level 110 H 98-107 MMOL/L Carbon Dioxide Level 19 L 21-32 MMOL/L Anion Gap 13 5-14 MMOL/L Blood Urea Nitrogen 6 L 7-18 MG/DL Creatinine 1.28 0.60-1.30 MG/DL Estimat Glomerular Filtration Rate > 60 BUN/Creatinine Ratio 5 Glucose Level 103 70-105 MG/DL Calcium Level 8.4 L 8.5-10.1 MG/DL Corrected Calcium 8.9 8.5-10.1 MG/DL Total Bilirubin 0.4 0.1-1.0 MG/DL Aspartate Amino Transf (AST/SGOT) 16 5-34 U/L Alanine Aminotransferase (ALT/SGPT) 12 0-55 U/L Alkaline Phosphatase 91 40-136 U/L Total Protein 6.6 6.4-8.2 GM/DL Albumin 3.4 3.2-4.5 GM/DL My Orders Orders - MICKY LÓPEZ PUBLICATION DIRECTOR Cbc With Automated Diff (09/13/19 19:19) Comprehensive Metabolic Panel (09/13/19 19:19) Ua Culture If Indicated (09/13/19 19:19) Drug Screen Stat (Urine) (09/13/19 19:19) Ed Iv/Invasive Line Start (09/13/19 19:19) Ct Abd/Pelvis Wo(Kidney Stone) (09/13/19 19:19) Ns Iv 1000 Ml (Sodium Chloride 0.9%) (09/13/19 19:30) Ketorolac Injection (Toradol Injection) (09/13/19 19:30) Lorazepam Injection (Ativan Injection) (09/13/19 19:30) Medications Given in ED Current Medications Medications Dose Ordered Sig/Bam Route Start Time Stop Time Status Last Admin Dose Admin Ketorolac Tromethamine 15 mg ONCE ONCE IVP 09/13/19 19:30 09/13/19 19:31 DC 09/13/19 19:30 15 MG Lorazepam 1 mg ONCE ONCE IVP 09/13/19 19:30 09/13/19 19:31 DC 09/13/19 19:30 1 MG Departure Communication (Admissions) Time/Spoke to Admitting Phy: 20:18 Impression Primary Impression: Small bowel obstruction Disposition: 09 ADMITTED INPATIENT Condition: Stable Admissions Decision to Admit Reason: Admit from ER (General) Decision to Admit/Date: Sep 13, 2019 Time/Decision to Admit Time: 20:18 Departure-Patient Inst. Referrals: [facility] [place] Primary Care Physician CARLOS A PARIS (Family) Primary Care Physician MICKY LÓPEZ PUBLICATION DIRECTOR Sep 13, 2019 19:38
[2019-09-13 19:39] LABS: BUN/CREATININE RATIO 5
[2019-09-13 19:40] LABS: ALANINE AMINOTRANSFERASE 12 U/L (0-55)
--- NOTE | 2019-09-13 20:12 | Diagnostic Imaging Report ---
CLINICAL INDICATION: Patient with right lower quadrant abdominal pain. Evaluate for stone. EXAM: Axial CT scan of the abdomen and pelvis performed without IV or enteric contrast. Sagittal and coronal reformatted images were created. Auto Exposure Controls were utilized during the CT exam to meet ALARA standards for radiation dose reduction. COMPARISON: CT scan of the abdomen and pelvis without contrast dated 08/27/2019. FINDINGS: There is mild atelectasis versus scarring involving both lung bases. There are hypertrophic spurs involving the visualized lower thoracic spine and lumbar spine. The liver, spleen, gallbladder, pancreas and adrenal glands are unremarkable. There is no urinary tract stone seen. There is no stone in the ureter or bladder. There is no renal mass seen. There is no hydronephrosis. The bladder is partially fluid-filled with diffuse bladder wall thickening which may be related to incomplete distention. Otherwise bladder is unremarkable. There is no intra-abdominal free air or free fluid. The appendix is unremarkable. There are multiple loops of dilated small bowel overlying the abdominal region which predominantly involves the ileum and some of the jejunum. There is a tortuous area of narrowing of small bowel just distal to this area of intestinal dilation consistent with transition point. This is seen on the axial sequence series 2, image 75. This is in the area of the previously seen bowel wall thickening and inflammation. There is fecalization of stool seen just proximal to the transition point and related to the obstruction. There is multiple air-fluid levels seen in dilated loops of bowel. The colon is predominantly decompressed. There is no intra-abdominal free air or free fluid. There is no significant lymphadenopathy. The extra-abdominal and extra-pelvic soft tissue structures are unremarkable. IMPRESSION: 1: There is interval development of high-grade small bowel obstruction with transition point in the right mid abdominal region. The transition point correlates to the area of abnormal bowel wall thickening and fat stranding seen on the prior study. The colon is decompressed. 2: There is no urinary tract stone seen. There is no hydronephrosis. Dictated by: Dictated on workstation # [id number]
--- NOTE | 2019-09-13 20:55 | NUR ---
FERDINAND ARAUJO JR admitted to room 416-1, with an admitting diagnosis of SMALL BOWEL OBSTRUCTION, on 09/13/19 from ER via , accompanied by .FERDINAND ARAUJO JR introduced to surroundings, call light, bed controls, phone, TV, temperature control, lights, meal times, smoking policy, visitor policy, side rail policy, bathrooms and showers. Patient Rights given to patient in the handbook. FERDINAND ARAUJO JR verbalizes understanding that [facility] is not responsible for the loss or damage to any personal effects or valuables that are kept in the patients possession during their hospitalization.
[2019-09-13 20:57] LABS: BILIRUBIN,URINE NEGATIVE (NEGATIVE); CLARITY,URINE CLEAR; COLOR,URINE YELLOW; GLUCOSE, URINE (UA) NEGATIVE (NEGATIVE); KETONES,URINE NEGATIVE (NEGATIVE); LEUKOCYTE ESTERASE ,URINE NEGATIVE (NEGATIVE); NITRITE,URINE NEGATIVE (NEGATIVE); PROTEIN,URINE NEGATIVE (NEGATIVE)
[2019-09-13 21:10] LABS: AMORPHOUS SEDIMENT,UR FEW AMOR URATES /LPF; BACTERIA,URINE TRACE /HPF; RBC,URINE 0-2 /HPF; WBC,URINE 0-2 /HPF
[2019-09-13 21:15] LABS: AMPHETAMINE SCREEN, URINE NEGATIVE (NEGATIVE); BARBITURATE SCREEN URINE NEGATIVE (NEGATIVE); BENZODIAZEPINES SCREEN URINE NEGATIVE (NEGATIVE); CANNABINOID SCREEN, URINE NEGATIVE (NEGATIVE); COCAINE SCREEN URINE NEGATIVE (NEGATIVE); METHADONE STAT NEGATIVE (NEGATIVE); METHAMPHETAMINE SCREEN URINE S NEGATIVE (NEGATIVE); OPIATE SCREEN URINE POSITIVE (NEGATIVE); OXYCODONE STAT NEGATIVE (NEGATIVE); PROPOXYPHENE STAT NEGATIVE (NEGATIVE); TRICYCLIC ANTIDEPRESSANTS SCRE POSITIVE (NEGATIVE)
[2019-09-13] MEDS ORDERED: ONDANSETRON 4 MG/2 ML (SDV) Z0FRAN IV PRN (21:15)
[2019-09-13 21:32] VITALS: BP 128/80
[2019-09-13] MEDS: LACTATED RINGERS 1,000 ML IV SCH (21:35)
--- NOTE | 2019-09-13 21:55 | NUR ---
New order rec from Dr. Prakash for pt to take home dose of Seroquel and Buspar. Also, SCD's and Ambulation for DVT prophylaxis.
[2019-09-13] MEDS ORDERED: QUEtiapine 200 MG (SEROquel) TAB IMMEDIATE RELEASE ONE (21:56)
[2019-09-13] MEDS ORDERED: busPIRone 15 MG (BUSPAR) TABLET ONE (21:56)
[2019-09-13] MEDS: busPIRone 15 MG (BUSPAR) TABLET PO SCH (22:06)
[2019-09-13] MEDS: QUEtiapine 200 MG (SEROquel) TAB IMMEDIATE RELEASE PO SCH (22:06)
[2019-09-13] MEDS: fentaNYL INJECTION 100 MCG/2 ML AMP IV PRN (22:07)
[2019-09-13 23:59] VITALS: BP 144/93
[2019-09-14] VITALS (12 sets, daily range): BP systolic 125–174; BP diastolic 66–98
[2019-09-14] MEDS: fentaNYL INJECTION 100 MCG/2 ML AMP IV PRN ×4 (01:44→21:22)
[2019-09-14] MEDS: LORazepam INJ 2 MG/ML (ATIVAN) VIAL IV PRN ×2 (03:27→21:22)
[2019-09-14] MEDS: LACTATED RINGERS 1,000 ML IV SCH ×4 (03:27→23:53)
[2019-09-14 06:53] LABS: BASOPHILS % (AUTO) 0 % (0-10); EOSINOPHILS % (AUTO) 0 % (0-10); HEMATOCRIT 35 % (40-54); HEMOGLOBIN 11.7 G/DL (13.3-17.7); LYMPHOCYTES # (AUTO) 1.4 X 10^3 (1.0-4.0); LYMPHOCYTES % (AUTO) 15 % (12-44); MEAN CORPUSCULAR HEMOGLOBIN 28 PG (25-34); MEAN CORPUSCULAR HGB CONC 33 G/DL (32-36); MEAN CORPUSCULAR VOLUME 85 FL (80-99); MEAN PLATELET VOLUME 10.5 FL (7.4-10.4); MONOCYTES # (AUTO) 0.6 X 10^3 (0.0-1.0); MONOCYTES % (AUTO) 7 % (0-12); NEUTROPHILS # (AUTO) 6.9 X 10^3 (1.8-7.8); NEUTROPHILS % (AUTO) 78 % (42-75); PLATELET COUNT 310 10^3/uL (130-400); RED CELL DISTRIBUTION WIDTH 14.8 % (10.0-14.5); WHITE BLOOD COUNT 8.9 10^3/uL (4.3-11.0)
[2019-09-14 07:17] LABS: ALANINE AMINOTRANSFERASE 12 U/L (0-55); ALKALINE PHOSPHATASE 86 U/L (40-136); BILIRUBIN,TOTAL 0.5 MG/DL (0.1-1.0); BUN/CREATININE RATIO 5; CALCIUM 8.2 MG/DL (8.5-10.1); CARBON DIOXIDE 21 MMOL/L (21-32); CHLORIDE 112 MMOL/L (98-107); CREATININE SERUM 1.21 MG/DL (0.60-1.30); GFR ESTIMATED > 60; GLUCOSE 113 MG/DL (70-105); POTASSIUM 4.2 MMOL/L (3.6-5.0); SODIUM 141 MMOL/L (135-145); TOTAL PROTEIN 5.8 GM/DL (6.4-8.2)
[2019-09-14] MEDS: busPIRone 15 MG (BUSPAR) TABLET PO SCH ×2 (08:29→21:21)
[2019-09-14] MEDS ORDERED: DIATRIZOATE MEGLUM/SODIUM 37% 120 ML (GASTROGRAFIN) PO ONE (09:15)
--- NOTE | 2019-09-14 12:22 | Diagnostic Imaging Report ---
Indication: Small bowel obstruction. Patient ingested 120 mL of Gastrografin and 120 mL of water and serial radiographs of the abdomen were then obtained. Limited radiographic abdomen show some mild gaseous distention of small bowel in the left upper quadrant. Gas is seen throughout the right colon. No definite free air is seen. Initial images demonstrate contrast throughout the stomach with prompt passage into the proximal small bowel. There appears to be normal progression of contrast through the small bowel loops. There are some moderately dilated small bowel loops in the left abdomen, however, contrast does pass beyond these loops. Contrast does reach the right colon at 2 hours 15 minutes. Contrast is seen throughout the colon as well as within the rectum at the 2 hour 45 minute film. Fold pattern is unremarkable. IMPRESSION: No evidence of complete small bowel obstruction. There are some moderately dilated small bowel loops left abdomen, nonspecific. Dictated by: Dictated on workstation # [id number]
--- NOTE | 2019-09-14 12:36 | History & Physical-Surgical ---
History of Present Illness History of Present Illness Reason for visit/HPI Surgery asked to admit pt regarding; High Grade Small Bowel Obstruction on CT. HPI per ED: To ER with ongoing right lower quadrant abdominal pain that has gotten worse starting today. No nausea no vomiting. He was here admitted to the hospital for a few days for this a couple of weeks ago. Bending forward seems to help the pain. Timing/Duration: Getting Worse Severity/Quality: Moderate Location: Suprapubic Radiation: No Radiation Activities at Onset: None Associated Symptoms: Denies Symptoms When I spoke to pt this afternoon he states his pain was not really getting any better at home and got "much worse yesterday". He describes the pain as sharp, stabbing and constant. He was passing gas and having BM's. When I last saw him in the office we had talked about the possibility of surgery if he didn't improve. Date of Admission Sep 13, 2019 at 20:20 Time Seen by a Provider: 12:08 I consulted on this patient on 09/14/19 12:31 Attending Physician Alejo Prakash DO Admitting Physician [place] Consult Allergies and Home Medications Allergies Coded Allergies: No Known Drug Allergies (Unverified , 07/29/09) Home Medications Buspirone HCl 15 Mg Tablet, 15 MG PO BID, (Reported) Hydrocodone Bit/Acetaminophen 1 Ea Tab, 1 EA PO Q4H PRN for PAIN-MODERATE (5-7) Prescribed by: ALEJO PRAKASH on 08/29/19 1157 Methylprednisolone 4 Mg Tab.ds.pk, 4 MG PO UD PER DOSE PACK INSTRUCTIONS Prescribed by: ALEJO PRAKASH on 08/29/19 1157 Quetiapine Fumarate 200 Mg Tablet, 400 MG PO HS, (Reported) TAKES 2 (200MG) TABS TO EQUAL 400MG AT BEDTIME Patient Home Medication List Home Medication List Reviewed: Yes Past Alciwyh-Mvyith-Iolrye Hx Patient Social History Alcohol Use: Denies Use Recreational Drug Use: Yes (SMOKES 1 PPD) Drug of Choice: THC, UDS+ FOR AMPHETAMINES/METH AMPHETAMINES 08/22/19 Smoking Status: Never a Smoker Type Used: Cigarettes Recent Foreign Travel: No Contact w/Someone Who Travel: No Recent Infectious Disease Expo: No Immunizations Up To Date Tetanus Booster (TDap): Unknown PED Vaccines UTD: Yes Seasonal Allergies Seasonal Allergies: No Surgeries History of Surgeries: Yes (KELOID REMOVAL; BACK SURGERY) Surgeries: Orthopedic Respiratory History of Respiratory Disorde: No Cardiovascular History of Cardiac Disorders: Yes Cardiac Disorders: High Cholesterol, Irregular Heartbeat Neurological History of Neurological Disord: No Reproductive System Hx Reproductive Disorders: No Sexually Transmitted Disease: No HIV/AIDS: No Genitourinary History of Genitourinary Disor: No Gastrointestinal History of Gastrointestinal Di: No Musculoskeletal History of Musculoskeletal Dis: Yes (BACK SURGERY) Musculoskeletal Disorders: Chronic Back Pain Endocrine History of Endocrine Disorders: No HEENT History of HEENT Disorders: No Hearing Impairment: Denies Cancer History of Cancer: No Psychosocial History of Psychiatric Problem: Yes Behavioral Health Disorders: Anxiety, Bipolar, Depression Integumentary History of Skin or Integumenta: Yes (KELOIDS--S/P REMOVAL) Blood Transfusions History of Blood Disorders: No Family Medical History Significant Family History: Other Conditions/Hx (pt states he doesn't think his parents had any DM, CAD, HTN) Review of Systems Constitutional: No chills, No fever; malaise, weakness, weight loss EENTM: No blurred vision, No double vision, No mouth pain, No mouth swelling, No epistaxis Respiratory: No cough, No dyspnea on exertion, No short of breath Cardiovascular: No chest pain, No edema, No palpitations Gastrointestinal: abdominal pain, diarrhea, nausea, vomiting Genitourinary: No dysuria, No frequency, No hematuria Musculoskeletal: joint pain, joint swelling, muscle pain, muscle stiffness Skin: No change in color, No change in hair/nails Psychiatric/Neurological: Anxiety, Depressed; Denies Seizure, Denies Tremors HEMATOLOGIC - Pt denies any hx of abnormal bleeding or bruising Physical Exam Vital Signs Vital Signs - First Documented 09/13/19 19:05 Temp 37.3 Pulse 113 Resp 20 B/P (MAP) 115/88 (97) Pulse Ox 97 O2 Delivery Room Air Capillary Refill : Less Than 3 SecondsLess Than 3 Seconds Height, Weight, BMI Height: 6'3.00" Weight: 265lbs. oz. 120.773167lb; 32.72 BMI Method:Stated General Appearance: WD/WN, Mild Distress Eyes: Bilateral Eye PERRL, Bilateral Eye EOMI HEENT: Pharynx Normal, Moist Mucous Membranes; No Pale Conjunctivae (L), No Pale Conjunctivae (R) Neck: Full Range of Motion, Normal Inspection, Non Tender, Supple Respiratory: Chest Non Tender, Lungs Clear, Normal Breath Sounds, No Accessory Muscle Use, No Respiratory Distress Cardiovascular: Regular Rate, Rhythm, No Edema, No Murmur Gastrointestinal: No Organomegaly, No Pulsatile Mass, Soft, Guarding (voluntary), Tenderness (right side of abdomen mostly, but some diffuse) Rectal: Deferred Back: No CVA Tenderness, No Vertebral Tenderness Extremity: Normal Capillary Refill, No Calf Tenderness, No Pedal Edema Neurologic/Psychiatric: Alert, Oriented x3, Normal Mood/Affect, title i director II-XII Norm as Tested Skin: Normal Color, Warm/Dry Lymphatic: No Adenopathy (neck, axilla or groin) Data Review Labs Laboratory Tests 09/13/19 19:16: White Blood Count 7.1, Red Blood Count 4.30L, Hemoglobin 12.2L, Hematocrit 36L, Mean Corpuscular Volume 85, Mean Corpuscular Hemoglobin 28, Mean Corpuscular Hemoglobin Concent 34, Red Cell Distribution Width 14.9H, Platelet Count 346, Mean Platelet Volume 10.3, Neutrophils (%) (Auto) 56, Lymphocytes (%) (Auto) 35, Monocytes (%) (Auto) 7, Eosinophils (%) (Auto) 1, Basophils (%) (Auto) 0, Neutrophils # (Auto) 4.0, Lymphocytes # (Auto) 2.5, Monocytes # (Auto) 0.5, Eosinophils # (Auto) 0.1, Basophils # (Auto) 0.0, Sodium Level 142, Potassium Level 4.2, Chloride Level 110H, Carbon Dioxide Level 19L, Anion Gap 13, Blood Urea Nitrogen 6L, Creatinine 1.28, Estimat Glomerular Filtration Rate > 60, BUN/Creatinine Ratio 5, Glucose Level 103, Calcium Level 8.4L, Corrected Calcium 8.9, Total Bilirubin 0.4, Aspartate Amino Transf (AST/SGOT) 16, Alanine Aminotransferase (ALT/SGPT) 12, Alkaline Phosphatase 91, Total Protein 6.6, Albumin 3.4 09/13/19 20:48: Urine Color YELLOW, Urine Clarity CLEAR, Urine pH 6.0, Urine Specific [place] 1.015L, Urine Protein NEGATIVE, Urine Glucose (UA) NEGATIVE, Urine Ketones NEGATIVE, Urine Nitrite NEGATIVE, Urine Bilirubin NEGATIVE, Urine Urobilinogen 0.2, Urine Leukocyte Esterase NEGATIVE, Urine RBC (Auto) NEGATIVE, Urine RBC 0- 2, Urine WBC 0-2, Urine Crystals PRESENTH, Urine Amorphous Sediment FEW JANELL URATESH, Urine Bacteria TRACE, Urine Casts NONE, Urine Mucus NEGATIVE, Urine Culture Indicated NO, Urine Opiates Screen POSITIVEH, Urine Oxycodone Screen NEGATIVE, Urine Methadone Screen NEGATIVE, Urine Propoxyphene Screen NEGATIVE, Urine Barbiturates Screen NEGATIVE, Ur Tricyclic Antidepressants Screen POSITIVEH, Urine Phencyclidine Screen NEGATIVE, Urine Amphetamines Screen NEGATIVE, Urine Methamphetamines Screen NEGATIVE, Urine Benzodiazepines Screen NEGATIVE, Urine Cocaine Screen NEGATIVE, Urine Cannabinoids Screen NEGATIVE 09/14/19 06:00: White Blood Count 8.9, Red Blood Count 4.16L, Hemoglobin 11.7L, Hematocrit 35L, Mean Corpuscular Volume 85, Mean Corpuscular Hemoglobin 28, Mean Corpuscular Hemoglobin Concent 33, Red Cell Distribution Width 14.8H, Platelet Count 310, Mean Platelet Volume 10.5H, Neutrophils (%) (Auto) 78H, Lymphocytes (%) (Auto) 15, Monocytes (%) (Auto) 7, Eosinophils (%) (Auto) 0, Basophils (%) (Auto) 0, Neutrophils # (Auto) 6.9, Lymphocytes # (Auto) 1.4, Monocytes # (Auto) 0.6, Eosinophils # (Auto) 0.0, Basophils # (Auto) 0.0, Sodium Level 141, Potassium Level 4.2, Chloride Level 112H, Carbon Dioxide Level 21, Anion Gap 8, Blood Urea Nitrogen 6L, Creatinine 1.21, Estimat Glomerular Filtration Rate > 60, BUN/Creatinine Ratio 5, Glucose Level 113H, Calcium Level 8.2L, Corrected Calcium 9.0, Total Bilirubin 0.5, Aspartate Amino Transf (AST/SGOT) 12, Alanine Aminotransferase (ALT/SGPT) 12, Alkaline Phosphatase 86, Total Protein 5.8L, Albumin 3.0L Radiology CT ABD/PELVIS WO(KIDNEY STONE) CLINICAL INDICATION: Patient with right lower quadrant abdominal pain. Evaluate for stone. EXAM: Axial CT scan of the abdomen and pelvis performed without IV or enteric contrast. Sagittal and coronal reformatted images were created. Auto Exposure Controls were utilized during the CT exam to meet ALARA standards for radiation dose reduction. COMPARISON: CT scan of the abdomen and pelvis without contrast dated 08/27/2019. FINDINGS: There is mild atelectasis versus scarring involving both lung bases. There are hypertrophic spurs involving the visualized lower thoracic spine and lumbar spine. The liver, spleen, gallbladder, pancreas and adrenal glands are unremarkable. There is no urinary tract stone seen. There is no stone in the ureter or bladder. There is no renal mass seen. There is no hydronephrosis. The bladder is partially fluid-filled with diffuse bladder wall thickening which may be related to incomplete distention. Otherwise bladder is unremarkable. There is no intra-abdominal free air or free fluid. The appendix is unremarkable. There are multiple loops of dilated small bowel overlying the abdominal region which predominantly involves the ileum and some of the jejunum. There is a tortuous area of narrowing of small bowel just distal to this area of intestinal dilation consistent with transition point. This is seen on the axial sequence series 2, image 75. This is in the area of the previously seen bowel wall thickening and inflammation. There is fecalization of stool seen just proximal to the transition point and related to the obstruction. There is multiple air-fluid levels seen in dilated loops of bowel. The colon is predominantly decompressed. There is no intra-abdominal free air or free fluid. There is no significant lymphadenopathy. The extra-abdominal and extra-pelvic soft tissue structures are unremarkable. IMPRESSION: 1: There is interval development of high-grade small bowel obstruction with transition point in the right mid abdominal region. The transition point correlates to the area of abnormal bowel wall thickening and fat stranding seen on the prior study. The colon is decompressed. 2: There is no urinary tract stone seen. There is no hydronephrosis. Dictated by: Dictated on workstation # [id number] Dict: 09/13/191952 Trans: 09/13/192322 [facility] [id number] Interpreted by: THOMAS HALL MD Assessment/Plan Assessment/Plan Admission Diagonsis High Grade Small Bowel Obstruction Chronic Abdominal pain Admission Status: Inpatient Order (span 2 midnights) Reason for Inpatient Admission: Pt will be going to surgery and recover will last longer than 2 midnights Assessment/Plan High Grade Small Bowel Obstruction - appears to be Partial SBO Chronic Abdominal pain I had long discussion with pt and we went over his options; 1) Try eating and possibly send home 2) go to the OR for Diagnostic Laparoscopy with possible SBR. We have tried doing nothing; because he was admitted for 4 days and then went home, his pain did not change. I did explain that surgery may find nothing. I think his best course of action at this point is to try surgery. We discussed risks and complications; not limited to pain, bleeding, infection, scar, damage to bowel and need for further procedure. All questions answered to his s atisfaction. He has chosen surgery as the option he wants to do. 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 Clinical Quality Measures DVT/VTE Risk/Contraindication: Risk Factor Score Per Nursin RFS Level Per Nursing on Admit: 2=Moderate ALEJO PRAKASH DO Sep 14, 2019 12:36
[2019-09-14] MEDS ORDERED: SEVOFLURANE (ULTANE) 15 ML INHAL SOLN ONE ×3 (13:09→16:03)
[2019-09-14] MEDS ORDERED: ROCURONIUM 10 MG/ML 5 ML SYRINGE IV ONE ×2 (13:09→16:03)
[2019-09-14] MEDS ORDERED: ONDANSETRON 4 MG/2 ML (SDV) Z0FRAN ONE (13:09)
[2019-09-14] MEDS ORDERED: DEXAMETHASONE 10 MG/ML (DECADRON) 1 ML VIAL ONE (13:09)
[2019-09-14] MEDS ORDERED: proPOfol 200 MG/20 ML (DIPRIVAN) VIAL IV ONE (13:09)
[2019-09-14] MEDS ORDERED: SUCCINYLCHOLINE INJ 100 MG/5 ML SYR ONE (13:09)
[2019-09-14] MEDS ORDERED: fentaNYL INJECTION 100 MCG/2 ML AMP ONE (13:09)
[2019-09-14] MEDS ORDERED: MIDAZOLAM 2 MG/2 ML (VERSED) VIAL ONE (13:10)
--- NOTE | 2019-09-14 13:48 | NUR ---
SPOKE WITH THE PT AND WENT THRU THE EXT MED HISTORY TO COMPLETE THE MED REC ALL MEDS LISTED ON THE EXT MED HISTORY- NORCO AND MEDROL DOSE VALENTINE WERE PRESCRIBED WITH HIS LAST DISCHARGE (08-23-2019) BUT HE HAS FINISHED BOTH THESE PRESCRIPTIONS. NO OTC MEDS
--- NOTE | 2019-09-14 14:22 | NUR ---
PT TO SURGERY VIA BED
[2019-09-14] MEDS ORDERED: LACTATED RINGERS 1,000 ML IV PRN (14:34)
[2019-09-14] MEDS ORDERED: ceFAZolin 2 GM IV Premixed 50 ML ONE (14:44)
[2019-09-14] MEDS ORDERED: BUP/EPI 0.5% 1:200,000 (SENSORCAINE) 30 ML VIAL ONE (14:51)
[2019-09-14] MEDS ORDERED: ceFAZolin 2 GM IV Premixed 50 ML IV ONE (15:15)
[2019-09-14] MEDS ORDERED: morphine INJ 10 MG/ML 1ML (SYR OR VIAL) ONE (15:36)
[2019-09-14] MEDS ORDERED: HYDROmorphone 2 MG/ML VIAL (DILAUDID) ONE (15:36)
[2019-09-14] MEDS ORDERED: NEOSTIGMINE 3 MG/3 ML VIAL ONE (16:24)
[2019-09-14] MEDS ORDERED: GLYCOPYRROLATE 0.2 MG/ML (ROBINUL) 2 ML VIAL ONE (16:24)
--- NOTE | 2019-09-14 16:35 | Progress Note-Post Operative ---
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
[2019-09-14] MEDS ORDERED: ONDANSETRON 4 MG/2 ML (SDV) Z0FRAN IVP PRN ×2 (16:45→17:00)
[2019-09-14] MEDS ORDERED: PROMETHAZINE INJ 25 MG/ML (PHENERGAN) AMP IVP ONE (17:00)
[2019-09-14] MEDS ORDERED: fentaNYL INJECTION 100 MCG/2 ML AMP IVP ONE (17:00)
[2019-09-14] MEDS ORDERED: morphine INJ 10 MG/ML 1ML (SYR OR VIAL) IVP ONE (17:00)
[2019-09-14] MEDS ORDERED: HYDROmorphone 2 MG/ML VIAL (DILAUDID) IV ONE (17:00)
[2019-09-14] MEDS ORDERED: MEPERIDINE (DEMEROL) INJ 50 MG/ML IVP ONE (17:00)
[2019-09-14] MEDS: ACETAMINOPHEN 500 MG TAB (TYLENOL) PO SCH ×2 (18:45→23:53)
[2019-09-14] MEDS: metroNIDAZOLE 500MG/100ML IVPB 100 ML IV SCH ×2 (18:46→23:53)
[2019-09-14] MEDS: KETOROLAC 30 MG/ML VIAL IVP SCH ×2 (18:46→21:22)
[2019-09-14] MEDS: QUEtiapine 200 MG (SEROquel) TAB IMMEDIATE RELEASE PO SCH (21:21)
[2019-09-14] MEDS: ceFAZolin 2 GM IV Premixed 50 ML IV SCH (21:22)
[2019-09-15 00:24] VITALS: BP 152/90
[2019-09-15 04:25] VITALS: BP 100/66
[2019-09-15] MEDS: ceFAZolin 2 GM IV Premixed 50 ML IV SCH (04:51)
[2019-09-15] MEDS: LORazepam INJ 2 MG/ML (ATIVAN) VIAL IV PRN ×3 (04:52→20:47)
[2019-09-15] MEDS: KETOROLAC 30 MG/ML VIAL IVP SCH ×4 (04:53→23:30)
[2019-09-15] MEDS: fentaNYL INJECTION 100 MCG/2 ML AMP IV PRN ×5 (04:53→20:47)
[2019-09-15 07:40] VITALS: BP 117/68
[2019-09-15] MEDS: PANTOPRAZOLE 40 MG (PROTONIX) VIAL IVP SCH (08:47)
[2019-09-15] MEDS: ACETAMINOPHEN 500 MG TAB (TYLENOL) PO SCH ×2 (08:47→17:05)
[2019-09-15] MEDS: busPIRone 15 MG (BUSPAR) TABLET PO SCH ×2 (08:48→20:46)
--- NOTE | 2019-09-15 10:15 | Progress Note - Surgery ---
Subjective Time Seen by a Provider: 09:46 Subjective/Events-last exam Pt seen and examined, tolerating clears and asking to have more. Pt did not complain of pain. Review of Systems General: No Chills, No Night Sweats Pulmonary: No Dyspnea, No Cough Cardiovascular: No: Chest Pain, Palpitations Gastrointestinal: No: Nausea, Vomiting Objective Exam Vital Signs Date Time Temp Pulse Resp B/P (MAP) Pulse Ox O2 Delivery O2 Flow Rate FiO2 09/15/19 07:40 36.4 108 18 117/68 (84) 97 Nasal Cannula 4.00 09/15/19 04:25 36.8 100 20 100/66 (77) 96 Nasal Cannula 4.00 09/15/19 00:24 36.7 92 18 152/90 (110) 100 Nasal Cannula 4.00 09/14/19 20:18 36.3 131 15 129/83 (98) 97 Nasal Cannula 3.00 09/14/19 20:00 Nasal Cannula 4.00 09/14/19 17:38 36.7 105 20 174/79 (110) 97 Nasal Cannula 4.50 09/14/19 17:35 Nasal Cannula 4 09/14/19 17:35 36.2 14 159/98 (118) 97 Nasal Cannula 4 09/14/19 17:30 14 159/98 (118) 97 Nasal Cannula 4 09/14/19 17:25 Nasal Cannula 4 09/14/19 17:20 16 148/97 (114) 98 Nasal Cannula 4 09/14/19 17:10 OxyMask 5 09/14/19 17:10 12 162/90 (114) 96 OxyMask 5 09/14/19 17:00 14 160/86 (110) 98 OxyMask 5 09/14/19 16:55 OxyMask 5 09/14/19 16:50 16 142/83 (102) 98 OxyMask 5 09/14/19 16:43 OxyMask 8 09/14/19 16:43 36.1 16 155/97 (116) 99 OxyMask 8 09/14/19 11:55 36.8 75 20 133/66 (88) 96 Room Air I & O 09/15/19 07:00 Intake Total 4090 ml Output Total 800 ml Balance 3290 ml Capillary Refill : Less Than 3 SecondsLess Than 3 Seconds General Appearance: No Apparent Distress, WD/WN HEENT: Moist Mucous Membranes; No Pale Conjunctivae (L), No Pale Conjunctivae (R) Respiratory: Chest Non Tender, Lungs Clear, Normal Breath Sounds, No Accessory Muscle Use, No Respiratory Distress Cardiovascular: Regular Rate, Rhythm, No Murmur Gastrointestinal: soft, tenderness (mildly at incision) Extremity: No Calf Tenderness Assessment/Plan Assessment/Plan Assessment/Plan S/P SBR Increase diet to soft, encourage ambulation and IS use. Pain control as needed. Clinical Quality Measures DVT/VTE Risk/Contraindication: Risk Factor Score Per Nursin RFS Level Per Nursing on Admit: 2=Moderate NKECHI MCGRATH DO Sep 15, 2019 10:15
--- NOTE | 2019-09-15 10:47 | Anesthesia-General Post-Op ---
General Patient Condition Mental Status/LOC: Same as Preop Cardiovascular: Satisfactory Nausea/Vomiting: Absent Respiratory: Satisfactory Pain: Controlled Complications: Absent Post Op Complications Complications None Follow Up Care/Instructions Patient Instructions None needed. Anesthesia/Patient Condition Patient Condition Patient is doing well, no complaints, stable vital signs, no apparent adverse anesthesia problems. No complications reported per nursing. ANYA SORTO CRNA Sep 15, 2019 10:47
[2019-09-15 12:00] VITALS: BP 116/64
--- NOTE | 2019-09-15 12:40 | NUR ---
CM/SS visited with the patient to assess needs upon discharge. The patient asked staff if he could talk to a social sciences lecturer. CM/SS visited with the patient. He wanted to talk to this SS about Home health services. The patient reports at home it was taking him longer to complete his normal routine. CM/SS discussed with the patient that there are requirements to get home health. He verbalized understanding. CM/SS asked the patients physician if he would need/meet criteria for home health. He reported, he does not feel that the patient needs it at this time.
--- NOTE | 2019-09-15 14:02 | NUR ---
"RD ASSESSMENT PMHx: hypercholesterolemia; hx of ETOH/methamphetamine/THC/tobacco use/abuse PT INTERACTION: Pt was awake and pleasant during nutrition assessment. Pt states current appetite is good. Note PO intake of <25% x1meal, per chart review. Pt states following a regular diet at home, and has no issues with chewing/swallowing food. Pt states recent issues with nausea/vomiting. Note 1 episode of emesis on 09/13, per chart review. Pt states no recent issues with constipation/diarrhea. Note last BM was 09/13 and pt not currently on bowel regimen per chart review. Pt states no recent wt changes. Note unable to determine recent wt hx, per chart review. ABNORMAL NUTRITION-RELATED LAB VALUES LOW: BUN 6; Ca 8.2; Pro 5.8; alb 3.0 HIGH: Cl 112; glu 113 Est. kcal needs: 2035-1712 kcal | 15-20 kcal/kg Est. Pro needs: 87-108 g Pro | 0.8-1.0 g Pro/kg PES STATEMENT: Inadequate oral intake (NI-2.1) related to loss of appetite | nausea | vomiting as evidenced by pt interview | PO intake <25% x1meal INTERVENTION: Continue with current diet order of DYS2 Mechanically Altered diet. Pt may benefit from nutrition supplementation if PO intake remains low. Will continue to follow and reassess as pt needs, intake, and status change. MONITOR/EVALUATE: PO Intake; Plan of Care; Hydration Status; Weight Status; Lab Values Gamaliel Zavala, MS, RD, LD"
[2019-09-15] MEDS: LACTATED RINGERS 1,000 ML IV SCH (14:03)
--- NOTE | 2019-09-15 15:35 | OPERATIVE REPORT ---
DATE OF SERVICE: 09/14/2019 PREOPERATIVE DIAGNOSIS: Partial small-bowel obstruction. 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 PROCEDURES: 1. Diagnostic laparoscopy switched to open small bowel resection. 2. Incidental appendectomy. 3. Manual decompression of small bowel. SURGEON: Alejo Prakash DO CUPOLA WORKER: Vlad Ambrose DO. ANESTHESIA: General endotracheal tube. SPECIMEN: 1. Portion of small bowel. 2. Appendix. 3. Mesenteric lymph node. BLOOD LOSS: Approximately 200 mL. FLUIDS: Per anesthesia. POSTOPERATIVE CONDITION: Stable. INDICATION FOR PROCEDURE: The patient is a 59-year-old male who has had chronic right-sided abdominal pain at a previous admission, which possibly showed enteroenteral fistula, was discharged home and then had a repeat increase of abdominal pain. At this time, he elected to go to surgery. 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 Mildly inflamed and firm appendix, so this was removed as well. PROCEDURE NOTE: After informed consent was obtained, the patient was brought to the operating room, placed on the table in supine position. He was sterilely prepped and draped in normal fashion. Local lidocaine was used to infiltrate the skin above the umbilicus. I made an incision with #11 blade down through the skin and subcutaneous tissue, then deepened down to subcutaneous tissue with Bovie electrocautery down to the fascia. Fascia was incised with Bovie electrocautery and bluntly entered the abdomen, swept a finger around, then placed a balloon, 12 mm balloon port and created pneumoperitoneum and then placed the camera, placed another 5 port below the umbilicus and then used this as a working port to try and determine what was going on. There was a phlegmon in the right mid upper abdomen, started to try and take some of this down, unable to get this off the abdominal wall and at this point then switched to an open incision, removed the ports, increased the incision superiorly and inferiorly, inferiorly to just below the umbilicus and superiorly to about 3 inches below the xiphoid. Used Bovie electrocautery down through the skin and subcutaneous tissue and then deepened down to subcutaneous tissue with Bovie electrocautery and increasing the fascial incision superiorly and inferiorly. Once this was done, then able to carefully start taking this mass off the abdominal wall with Bovie electrocautery. Once we were able to do this, then able to start freeing up the adhesions, actually the omentum was adhesed over this and the transverse colon was stuck on this phlegmon as well. Carefully took these down with sharp dissection with Bovie electrocautery as well as Metzenbaum scissors. Once able to completely free this up, then able to deliver this through the abdominal wall and then went above it and below with a TITA, clamped and fired, thereby transecting and then took this off the mesentery with the LigaSure, clamping, coagulating and transecting to remove this portion of small bowel. Once this was removed, then manually decompressed the small bowel, pushing all fluid and air in intestine back up the entire small intestine into the ligament of Treitz and into the stomach, made sure the NG tube was in the correct position and then able to suction all this fluid out to decompress the small bowel. The appendix was seen mildly and looked little bit erythematous. It was firm, stuck down and then in order to get the cecum freed up, we elected to remove the appendix as well. Once this was removed, and then freed up actually some adhesions of the terminal ileum, able to then take the first portion of terminal ileum close to the cecum and then the proximal portion, put them together, made a defect on either one and then placed a TITA-75 down on either side and then clamped together and then fired, transecting thereby forming a [id number] functional end-to-end anastomosis and then used another TITA reload to clamp off and transect and close the enteroenterotomy. Once this was done, then we copiously irrigated with normal saline. Hemostasis was obtained. No bleeding inside the abdomen. No other obvious pathology and at this point then elected to close the incision, closed with #1 double stranded PDS suture, running from superior portion to inferior portion, tying to itself and then copiously irrigated the incision and then closed the incision with nichelle. Area was cleaned and dried and dressing was placed. The patient tolerated the procedure. Sponge, instrument and needle count correct at the end of the case. Dr. Ambrose assisted in this case helping to close incisions, identify anatomy, hold anatomy out of the way. Job ID: [id number] DocumentID: [id number] Dictated Date: 09/15/2019 13:40:34 Nail Making Machine Tender Date: 09/15/2019 15:35:04 Dictated By: DO RICKI ROACH
[2019-09-15 16:27] VITALS: BP 96/56
[2019-09-15] MEDS: ENOXAPARIN 40 MG/0.4 ML (LOVENOX) SYR SC SCH (17:05)
[2019-09-15 19:49] VITALS: BP 102/65
[2019-09-15] MEDS: QUEtiapine 200 MG (SEROquel) TAB IMMEDIATE RELEASE PO SCH (20:46)
[2019-09-16] VITALS: BP 106/66
[2019-09-16] MEDS: ACETAMINOPHEN 500 MG TAB (TYLENOL) PO SCH ×4 (01:00→16:49)
[2019-09-16 04:05] VITALS: BP 109/68
[2019-09-16] MEDS: KETOROLAC 30 MG/ML VIAL IVP SCH ×4 (05:21→20:59)
[2019-09-16 07:57] VITALS: BP 131/77
[2019-09-16] MEDS: PANTOPRAZOLE 40 MG (PROTONIX) VIAL IVP SCH (10:32)
[2019-09-16] MEDS: busPIRone 15 MG (BUSPAR) TABLET PO SCH ×2 (10:32→20:59)
[2019-09-16] MEDS: LORazepam INJ 2 MG/ML (ATIVAN) VIAL IV PRN (10:54)
--- NOTE | 2019-09-16 11:20 | Progress Note ---
Subjective Date Seen by a Provider: Sep 16, 2019 Time Seen by a Provider: 10:00 Subjective/Events-last exam doing well. states had BM yesterday and tolerating dys3 diet. ambulating better but states still has some breakthru pain. no fever/chills. Objective Exam Vital Signs Date Time Temp Pulse Resp B/P (MAP) Pulse Ox O2 Delivery O2 Flow Rate FiO2 09/16/19 08:00 95 Room Air 09/16/19 07:57 36.7 101 20 131/77 (95) 97 Room Air 09/16/19 04:05 37.1 98 16 109/68 (82) 92 Room Air 09/16/19 00:00 36.5 108 20 106/66 (79) 92 Room Air 09/15/19 20:00 95 Room Air 09/15/19 19:49 37.8 108 16 102/65 (77) 93 Room Air 09/15/19 16:27 37.3 104 22 96/56 (69) 95 Room Air 09/15/19 12:00 37.6 116 19 116/64 (81) 95 Room Air I & O 09/16/19 07:00 Intake Total 3220 ml Output Total 225 ml Balance 2995 ml Capillary Refill : Less Than 3 SecondsLess Than 3 Seconds General Appearance: No Apparent Distress HEENT: PERRL/EOMI Neck: Full Range of Motion Respiratory: Chest Non Tender, Lungs Clear, Normal Breath Sounds Cardiovascular: Regular Rate, Rhythm Gastrointestinal: normal bowel sounds, soft, tenderness, other (inc clean/dry) Extremity: Normal Capillary Refill Neurologic/Psychiatric: Alert, Oriented x3 Skin: Normal Color Lymphatic: No Adenopathy Results Lab Microbiology 09/14/19 MRSA Screen - Final, Complete MRSA not isolated Assessment/Plan Assessment/Plan Assess & Plan/Chief Complaint s/p small bowel resection POD#2. doing well. tolerating dys3 diet and having bowel fxn. has some issues with breakthru pain. likely home tomorrow. Clinical Quality Measures DVT/VTE Risk/Contraindication: Risk Factor Score Per Nursin RFS Level Per Nursing on Admit: 2=Moderate BINA BUTTS MD Sep 16, 2019 11:20
[2019-09-16 11:25] VITALS: BP 120/69
--- NOTE | 2019-09-16 12:31 | Consultation - Hospitalist ---
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 Today patient is able to eat a regular meal and has had a BM yesterday. Patient denies pain at this current time. I have reviewed meds and labs. Patient agreeable for DC tomorrow if general surgery agrees. Source: patient Exam Limitations: no limitations Date Seen 09/16/19 Attending Physician Alejo Prakash DO [facility] Center/[facility] [place] Referring Physician Date of Admission Sep 13, 2019 at 20:20 Home Medications & Allergies Home Medications Reviewed patient Home Medication Reconciliation performed by pharmacy medication reconciliations lay out technician and/or nursing. Patients Allergies have been reviewed. Allergies Allergies Coded Allergies No Known Drug Allergies (Unverified07/29/09) Past Amtwbha-Fbypbo-Ekmarp Hx Past Med/Social Hx: Reviewed Nursing Past Med/Soc Hx, Reviewed and Corrections made Patient Social History Marrital Status: single Employed/Student: unemployed (disabled) Alcohol Use: Denies Use Recreational Drug Use: Yes (SMOKES 1 PPD) Drug of Choice: THC, UDS+ FOR AMPHETAMINES/METH AMPHETAMINES 08/22/19 Smoking Status: Never a Smoker Type Used: Cigarettes Recent Foreign Travel: No Contact w/other who traveled: No Recent Infectious Disease Expo: No Immunizations Up To Date Tetanus Booster (TDap): Unknown Pediatric: Yes Seasonal Allergies Seasonal Allergies: No Past Medical History Surgeries: Abdominal, Orthopedic Cardiac: High Cholesterol, Irregular Heartbeat Reproductive: No Sexually Transmitted Disease: No HIV/AIDS: No Musculoskeletal: Chronic Back Pain Hearing Impairment: Denies Psychosocial: Anxiety, Bipolar, Depression History of Blood Disorders: No Family History Patient reports no known family medical history. Other Conditions/Hx (pt states he doesn't think his parents had any DM, CAD, HTN) Review of Systems Constitutional: see HPI Gastrointestinal: abdominal pain, loss of appetite Physical Exam Physical Exam Vital Signs Vital Signs - First Documented 09/13/19 19:05 Temp 37.3 Pulse 113 Resp 20 B/P (MAP) 115/88 (97) Pulse Ox 97 O2 Delivery Room Air Capillary Refill : Less Than 3 SecondsLess Than 3 Seconds Height, Weight, BMI Height: 6'3.00" Weight: 265lbs. oz. [id number]; 32.72 BMI Method:Stated General Appearance: No Apparent Distress, Chronically ill Eyes: Bilateral Eye PERRL, Bilateral Eye EOMI HEENT: PERRL/EOMI Neck: Full Range of Motion Respiratory: Chest Non Tender, Lungs Clear, Normal Breath Sounds, No Accessory Muscle Use, No Respiratory Distress Cardiovascular: Regular Rate, Rhythm Gastrointestinal: No Organomegaly, No Pulsatile Mass, Soft, Tenderness (right side of abdomen mostly, but some diffuse) Rectal: Deferred Back: No CVA Tenderness, No Vertebral Tenderness Extremity: Normal Capillary Refill Neurologic/Psychiatric: Alert, Oriented x3 Skin: Normal Color Lymphatic: No Adenopathy Results Results/Procedures Labs Patient resulted labs reviewed. Assessment/Plan Assessment and Plan Assess & Plan/Chief Complaint Assessment: s/p SBO obstruction surgical resolution per Dr Prakash [facility] Mental illness Plan: Home meds Check labs in am Ambulate Diagnosis/Problems Diagnosis/Problems (1) Small bowel obstruction Status: Acute (2) Bipolar 1 disorder (3) PVCs (premature ventricular contractions) Status: Acute (4) PAC (premature atrial contraction) Status: Acute (5) Depression (6) Anxiety Clinical Quality Measures DVT/VTE Risk/Contraindication: Risk Factor Score Per Nursin RFS Level Per Nursing on Admit: 2=Moderate FRANK MOSER DO Sep 16, 2019 12:31
[2019-09-16 15:36] VITALS: BP 102/56
[2019-09-16] MEDS: ENOXAPARIN 40 MG/0.4 ML (LOVENOX) SYR SC SCH (16:49)
[2019-09-16 19:20] VITALS: BP 114/67
[2019-09-16] MEDS: QUEtiapine 200 MG (SEROquel) TAB IMMEDIATE RELEASE PO SCH (20:59)
[2019-09-17] VITALS: BP 119/73
[2019-09-17] MEDS: ACETAMINOPHEN 500 MG TAB (TYLENOL) PO SCH ×2 (00:40→08:37)
[2019-09-17 04:00] VITALS: BP 123/73
[2019-09-17] MEDS: KETOROLAC 30 MG/ML VIAL IVP SCH ×2 (04:50→10:45)
[2019-09-17 06:16] LABS: BASOPHILS % (AUTO) 0 % (0-10); EOSINOPHILS # (AUTO) 0.1 10^3/uL (0.0-0.3); EOSINOPHILS % (AUTO) 1 % (0-10); HEMATOCRIT 29 % (40-54); HEMOGLOBIN 9.6 G/DL (13.3-17.7); LYMPHOCYTES % (AUTO) 29 % (12-44); MEAN CORPUSCULAR HEMOGLOBIN 28 PG (25-34); MEAN CORPUSCULAR HGB CONC 33 G/DL (32-36); MEAN CORPUSCULAR VOLUME 84 FL (80-99); MEAN PLATELET VOLUME 10.1 FL (7.4-10.4); MONOCYTES # (AUTO) 0.6 X 10^3 (0.0-1.0); MONOCYTES % (AUTO) 8 % (0-12); NEUTROPHILS # (AUTO) 4.3 X 10^3 (1.8-7.8); NEUTROPHILS % (AUTO) 62 % (42-75); PLATELET COUNT 289 10^3/uL (130-400); RED CELL DISTRIBUTION WIDTH 14.6 % (10.0-14.5); WHITE BLOOD COUNT 6.9 10^3/uL (4.3-11.0)
[2019-09-17 06:25] LABS: ALBUMIN 2.6 GM/DL (3.2-4.5)
[2019-09-17 06:26] LABS: CHLORIDE 111 MMOL/L (98-107); POTASSIUM 3.6 MMOL/L (3.6-5.0); SODIUM 143 MMOL/L (135-145)
[2019-09-17 06:27] LABS: CALCIUM 7.8 MG/DL (8.5-10.1)
[2019-09-17 06:28] LABS: GLUCOSE 99 MG/DL (70-105); TOTAL PROTEIN 5.4 GM/DL (6.4-8.2)
[2019-09-17 06:29] LABS: CARBON DIOXIDE 21 MMOL/L (21-32)
[2019-09-17 06:30] LABS: BILIRUBIN,TOTAL 0.3 MG/DL (0.1-1.0)
[2019-09-17 06:31] LABS: ALKALINE PHOSPHATASE 64 U/L (40-136)
[2019-09-17 06:32] LABS: CREATININE SERUM 1.14 MG/DL (0.60-1.30); GFR ESTIMATED > 60
[2019-09-17 06:33] LABS: BUN/CREATININE RATIO 6
[2019-09-17 06:34] LABS: ALANINE AMINOTRANSFERASE 7 U/L (0-55)
[2019-09-17 07:40] VITALS: BP 132/79
[2019-09-17] MEDS: busPIRone 15 MG (BUSPAR) TABLET PO SCH (08:36)
[2019-09-17] MEDS: PANTOPRAZOLE 40 MG (PROTONIX) VIAL IVP SCH (08:37)
[2019-09-17] MEDS ORDERED: HYDR-4342 PO (10:19)
--- NOTE | 2019-09-17 10:20 | Discharge Inst-Surgical ---
D/C Lap Instructions-BENJAMÍN New, Converted, or Re-Newed RX: RX on Chart Follow Up Appt in [address] Prakash. Activity as tolerated No driving for 24 hours No driving while on pain medications Incentive Spirometry use every 2 hours while awake Regular Diet Symptoms to Report: Fever over 101 degree F, Nausea/Vomiting Infection Signs and Symptoms to report: Increased redness, Foul odor of wound, Increased drainage Bathing instructions: May shower Operative Area Clean/Dry; Keep incision clean/dry If any problems/questions: Contact your physician or go to Emergency Room BINA BUTTS MD Sep 17, 2019 10:20
--- NOTE | 2019-09-17 10:32 | Progress Note ---
Subjective Date Seen by a Provider: Sep 17, 2019 Time Seen by a Provider: 09:15 Subjective/Events-last exam Patient seen with Dr. Arce. Patient reports doing ok, but still having abdominal pain. No N/V. No F/C. Tolerating diet. Ambulating. Objective Exam Vital Signs Date Time Temp Pulse Resp B/P (MAP) Pulse Ox O2 Delivery O2 Flow Rate FiO2 09/17/19 08:00 Room Air 09/17/19 07:40 37.3 96 20 132/79 (96) 95 Room Air 09/17/19 04:00 37.0 91 18 123/73 (90) 96 Room Air 09/17/19 00:00 36.8 94 16 119/73 (88) 94 Room Air 09/16/19 20:00 Room Air 09/16/19 19:20 37.0 92 18 114/67 (83) 94 Room Air 09/16/19 15:36 36.9 98 16 102/56 (71) 96 Room Air 09/16/19 11:25 36.8 54 20 120/69 (86) 99 Room Air 09/16/19 11:05 36.8 09/16/19 11:05 36.8 I & O 09/17/19 07:00 Intake Total 1524 ml Balance 1524 ml Capillary Refill : Less Than 3 SecondsLess Than 3 Seconds General Appearance: No Apparent Distress, WD/WN Neck: Full Range of Motion, Normal Inspection, Supple Respiratory: Normal Breath Sounds, No Accessory Muscle Use, No Respiratory Distress Cardiovascular: Regular Rate, Rhythm, No Edema Gastrointestinal: soft, tenderness Extremity: Normal Capillary Refill, Normal Inspection, Normal Range of Motion Neurologic/Psychiatric: Alert, Oriented x3 Skin: Normal Color, Warm/Dry, Other (Midline incision C/D/I with no redness, erythema, or drainage noted. Dressing C/D/I.) Results Lab Laboratory Tests 09/17/19 04:58: White Blood Count 6.9, Red Blood Count 3.43L, Hemoglobin 9.6L, Hematocrit 29L, Mean Corpuscular Volume 84, Mean Corpuscular Hemoglobin 28, Mean Corpuscular Hemoglobin Concent 33, Red Cell Distribution Width 14.6H, Platelet Count 289, Mean Platelet Volume 10.1, Neutrophils (%) (Auto) 62, Lymphocytes (%) (Auto) 29, Monocytes (%) (Auto) 8, Eosinophils (%) (Auto) 1, Basophils (%) (Auto) 0, Neutrophils # (Auto) 4.3, Lymphocytes # (Auto) 2.0, Monocytes # (Auto) 0.6, Eosinophils # (Auto) 0.1, Basophils # (Auto) 0.0 09/17/19 05:48: Sodium Level 143, Potassium Level 3.6, Chloride Level 111H, Carbon Dioxide Level 21, Anion Gap 11, Blood Urea Nitrogen 7, Creatinine 1.14, Estimat Glomerular Filtration Rate > 60, BUN/Creatinine Ratio 6, Glucose Level 99, Calcium Level 7.8L, Corrected Calcium 8.9, Total Bilirubin 0.3, Aspartate Amino Transf (AST/SGOT) 10, Alanine Aminotransferase (ALT/SGPT) 7, Alkaline Phosphatase 64, Total Protein 5.4L, Albumin 2.6L Microbiology 09/14/19 MRSA Screen - Final, Complete MRSA not isolated Assessment/Plan Assessment/Plan Assess & Plan/Chief Complaint s/p small bowel resection POD#3. doing well. tolerating dys3 diet and having bowel fxn. has some issues with breakthru pain. Ok to UT home. Clinical Quality Measures DVT/VTE Risk/Contraindication: Risk Factor Score Per Nursin RFS Level Per Nursing on Admit: 2=Moderate JOSE GUADALUPE GALLARDO [employer] TECH[employer]ICAL OFFICER Sep 17, 2019 10:32
--- NOTE | 2019-09-17 11:20 | Progress Note - Hospitalist ---
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 Today patient is able to eat a regular meal and has had a BM yesterday. Patient denies pain at this current time. I have reviewed meds and labs. Patient agreeable for DC tomorrow if general surgery agrees. Subjective/Events-last exam Ready for DC Eating well Patient was in 412 before and I had taken care of him Checked meds and labs Review of Systems General: Fatigue Objective Exam Vital Signs Vital Signs Date Time Temp Pulse Resp B/P (MAP) Pulse Ox O2 Delivery O2 Flow Rate FiO2 09/17/19 13:11 09/17/19 12:01 37.1 104 20 97 Room Air 09/15/19 07:40 4.00 Capillary Refill : Less Than 3 SecondsLess Than 3 Seconds General Appearance: No Apparent Distress, WD/WN, Chronically ill Respiratory: Lungs Clear Cardiovascular: Regular Rate, Rhythm Results/Procedures Lab Laboratory Tests 09/17/19 04:58 09/17/19 05:48 Patient resulted labs reviewed. Assessment/Plan Assessment and Plan Assess & Plan/Chief Complaint Assessment: s/p SBO obstruction surgical resolution per Dr Prakash P Mental illness Plan: Home meds DC home Ambulate Diagnosis/Problems Diagnosis/Problems (1) Small bowel obstruction Status: Acute (2) Bipolar 1 disorder (3) PVCs (premature ventricular contractions) Status: Acute (4) PAC (premature atrial contraction) Status: Acute (5) Depression (6) Anxiety Clinical Quality Measures DVT/VTE Risk/Contraindication: Risk Factor Score Per Nursin RFS Level Per Nursing on Admit: 2=Moderate FRANK MOSER DO Sep 17, 2019 11:20
[2019-09-17 12:01] VITALS: BP 123/70
== END 2019-09-17 13:11 | disposition home or self-care (01) | DRG 329 ==
LOC: EDUNIT# 18:57 → ER 18:59 → 4TH 20:20 → OBSVTOIN 20:20 → 4TH 09-14 16:00
PROVIDERS: ADMIT Surgery; ATTEND Surgery
PROC: 0DJD4ZZ Inspection of Lower Intestinal Tract, Percutaneous Endoscopic Approach (ICD-10-PCS; 2019-09-14)
PROC: 0DBJ0ZZ Excision of Appendix, Open Approach (ICD-10-PCS; 2019-09-14)
PROC: 0D980ZZ Drainage of Small Intestine, Open Approach (ICD-10-PCS; 2019-09-14)
PROC: 0DB80ZZ Excision of Small Intestine, Open Approach (ICD-10-PCS; principal; 2019-09-14 14:42)
DX: K63.2 Fistula of intestine (principal); Q43.0 Meckel's diverticulum (displaced) (hypertrophic); K63.1 Perforation of intestine (nontraumatic); K63.0 Abscess of intestine; I49.3 Ventricular premature depolarization; E78.5 Hyperlipidemia, unspecified; F17.210 Nicotine dependence, cigarettes, uncomplicated; M54.9 Dorsalgia, unspecified; F41.9 Anxiety disorder, unspecified; F31.9 Bipolar disorder, unspecified
CPT/HCPCS: 36415; 74176; 74250; 80053; 80306; 81000; 85025; 87081; 94664; 96361; 96374; 96375

== ENCOUNTER 2019-09-22 12:44 | Emergency (ER) | payer MEDICAID ==
[~2019-09-22] VITALS: Ht 182.8 cm; Wt 122.7 kg
[~2019-09-22 12:44] MED LIST changes: +HYDR-4342 PO
--- NOTE | 2019-09-22 12:50 | NUR ---
ORAL CONTRAST GIVEN TO DRINK
--- OUTSIDE RECORDS SUMMARY | 2019-09-22 12:54 | XMS REPORT | Continuity of Care Document ---
Author Organization Unknown Address Unknown Phone Unavailable Allergies Active Description Code Type Severity Reaction Onset Reported/Identified Relationship to Patient Clinical Status Yes No Known Drug Allergies [id number] Drug Allergy Mild N/A 07/29/2009 Yes No [...] JOYCE A Ot 782.0 06/01/2014 MICKY LÓPEZ CASINO ASSISTANT MANAGER Ot 682 .3 06/01/2014 MICKY LÓPEZ CASINO ASSISTANT MANAGER Ot 785 .6 09/25/2014 GELLENDER DO, JOYCE [...] KANDACE M Ot 911.0 09/25/2014 MORA THOMAS, KANDCAE M Ot 914.0 09/25/2014 MORA THOMAS, KANDACE M Ot E000.8 09/25/2014 MORA THOMAS, KANDACE M Ot E849.0 09/25/2014 MORA THOMAS, KANDACE M Ot E968.2 10/05/2014 MICKY LÓPEZ CASINO ASSISTANT MANAGER Ot 719.46 10/05/2014 MICKY LÓPEZ CASINO ASSISTANT MANAGER Ot 959 .7 10/05/2014 MICKY LÓPEZ CASINO ASSISTANT MANAGER Ot E000.8 10/05/2014 MICKY LÓPEZ CASINO ASSISTANT MANAGER Ot E849.0 10/05/2014 MICKY LÓPEZ CASINO ASSISTANT MANAGER Ot E960.0 11/04/2014 MICKY LÓPEZ CASINO ASSISTANT MANAGER Ot 729 .5 11/04/2014 MICKY LÓPEZ CASINO ASSISTANT MANAGER Ot 915 .2 11/04/2014 MICKY LÓPEZ CASINO ASSISTANT MANAGER Ot E928.9 11/12/2014 JOYCE FUCHS DO Ot [...] Barrientos Ot R51 12/03/2018 LOC DO, CARLY K Ot E78.00 PURE HYPERCHOLESTEROLEMIA, UNSPECIFIED 12/03/2018 LOC DO, CARLY K Ot F17.210 NICOTINE DEPENDENCE, CIGARETTES, UNCOMPL 12/03/2018 LOC , CARLY K Ot F31.9 BIPOLAR DISORDER, UNSPECIFIED 12/03/2018 LOC DO, CARLY K Ot M25.441 EFFUSION, RIGHT HAND 12/03/2018 LOC DO, CARLY K Ot M79.89 OTHER SPECIFIED SOFT TISSUE DISORDERS 12/09/2018 LOC DO, CARLY K Ot E78.00 PURE HYPERCHOLESTEROLEMIA, UNSPECIFIED 12/09/2018 LOC DO, CARLY K Ot F17.210 NICOTINE DEPENDENCE, CIGARETTES, UNCOMPL 12/09/2018 LOC , CARLY K Ot F31.9 BIPOLAR DISORDER, UNSPECIFIED 12/09/2018 LOC DO, CARLY K Ot M25.441 EFFUSION, RIGHT HAND 12/09/2018 LOC DO, CARLY K Ot M79.89 OTHER SPECIFIED SOFT TISSUE DISORDERS 05/02/2019 MICKY LÓPEZ APRN Ot E78.00 PURE HYPERCHOLESTEROLEMIA, UNSPECIFIED 05/02/2019 MICYK LÓPEZ CASINO ASSISTANT MANAGER Ot F15.10 OTHER STIMULANT ABUSE, UNCOMPLICATED 05/02/2019 MICKY LÓPEZ APRN Ot F31 .9 BIPOLAR DISORDER, UNSPECIFIED 05/02/2019 MICKY LÓPEZ CASINO ASSISTANT MANAGER Ot F41 .9 ANXIETY DISORDER, UNSPECIFIED 05/02/2019 MICKY LÓPEZ CASINO ASSISTANT MANAGER Ot R06.00 DYSPNEA, UNSPECIFIED 05/02/2019 MICKY LÓPEZ APRN Ot R06.02 SHORTNESS OF BREATH 05/02/2019 MICKY LÓPEZ CASINO ASSISTANT MANAGER Ot 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 08/24/2019 [place] DO, NKECHI B Ot D72.8 29 ELEVATED WHITE BLOOD CELL COUNT, UNSPECI 08/24/2019 [place] DO, NKECHI B Ot E78.0 0 PURE HYPERCHOLESTEROLEMIA, UNSPECIFIED 08/24/2019 [place] DO, NKECHI B Ot E86.0 DEHYDRATION 08/24/2019 [place] DO, NKECHI B Ot F15.9 0 OTHER STIMULANT USE, UNSPECIFIED, UNCOMP 08/24/2019 [place] DO, NKECHI B Ot F17.2 10 NICOTINE DEPENDENCE, CIGARETTES, UNCOMPL 08/24/2019 [place] DO, NKECHI B Ot F31.9 BIPOLAR DISORDER, UNSPECIFIED 08/24/2019 [place] DO, NKECHI B Ot F41.9 ANXIETY DISORDER, UNSPECIFIED 08/24/2019 [place] DO, NKECHI B Ot I49.9 CARDIAC ARRHYTHMIA, UNSPECIFIED 08/24/2019 [place] DO, NKECHI B Ot K52.9 NONINFECTIVE GASTROENTERITIS AND COLITIS 08/24/2019 [place] DO, NKECHI B Ot M54.9 DORSALGIA, UNSPECIFIED 08/24/2019 [place] DO, NKECHI B Ot N17.9 ACUTE KIDNEY FAILURE, UNSPECIFIED 08/24/2019 [place] DO, NKECHI B Ot N18.9 CHRONIC KIDNEY DISEASE, UNSPECIFIED 08/24/2019 [place] DO, NKECHI B Ot R07.9 CHEST PAIN, UNSPECIFIED 08/24/2019 [place] , NKECHI B Ot R10.3 1 RIGHT LOWER QUADRANT PAIN 08/24/2019 [place] BRIAN, NKECHI B Ot R74.8 ABNORMAL LEVELS OF OTHER SERUM ENZYMES 08/27/2019 [place] BRINA, NKECHI B Ot A41.9 SEPSIS, UNSPECIFIED ORGANISM 08/27/2019 [place] DO, NKECHI B Ot D64.9 ANEMIA, UNSPECIFIED 08/27/2019 [place] , NKECHI B Ot D72.8 29 ELEVATED WHITE BLOOD CELL COUNT, UNSPECI 08/27/2019 [place] BRIAN, NKECHI B Ot E78.0 0 PURE HYPERCHOLESTEROLEMIA, UNSPECIFIED 08/27/2019 [place] BRIAN, NKECHI B Ot E86.0 DEHYDRATION 08/27/2019 [place] BRIAN, NKECHI B Ot F15.9 0 OTHER STIMULANT USE, UNSPECIFIED, UNCOMP 08/27/2019 [place] DO, NKECHI B Ot F17.2 10 NICOTINE DEPENDENCE, CIGARETTES, UNCOMPL 08/27/2019 [place] DO, NKECHI B Ot F31.9 BIPOLAR DISORDER, UNSPECIFIED 08/27/2019 [place] DO, NKECHI B Ot F41.9 ANXIETY DISORDER, UNSPECIFIED 08/27/2019 [place] DO, NKECHI B Ot I49.9 CARDIAC ARRHYTHMIA, UNSPECIFIED 08/27/2019 [place] DO, NKECHI B Ot K52.9 NONINFECTIVE GASTROENTERITIS AND COLITIS 08/27/2019 [place] DO, NKECHI B Ot M54.9 DORSALGIA, UNSPECIFIED 08/27/2019 [place] DO, NKECHI B Ot N17.9 ACUTE KIDNEY FAILURE, UNSPECIFIED 08/27/2019 [place] DO, NKECHI B Ot N18.9 CHRONIC KIDNEY DISEASE, UNSPECIFIED 08/27/2019 [place] DO, NKECHI B Ot R07.9 CHEST PAIN, UNSPECIFIED 08/27/2019 [place] DO, NKECHI B Ot R10.3 1 RIGHT LOWER QUADRANT PAIN 08/27/2019 [place] DO, NKECHI B Ot R74.8 ABNORMAL LEVELS OF OTHER SERUM ENZYMES 08/27/2019 [place] DO, NKECHI B Ot A41.9 SEPSIS, UNSPECIFIED ORGANISM 08/27/2019 [place] DO, NKECHI B Ot D64.9 ANEMIA, UNSPECIFIED 08/27/2019 [place] DO, NKECHI B Ot D72.8 29 ELEVATED WHITE BLOOD CELL COUNT, UNSPECI 08/27/2019 [place] DO, NKECHI B Ot E78.0 0 PURE HYPERCHOLESTEROLEMIA, UNSPECIFIED 08/27/2019 [place] BRIAN, NKECHI B Ot E86.0 DEHYDRATION 08/27/2019 [place] DO, NKECHI B Ot F15.9 0 OTHER STIMULANT USE, UNSPECIFIED, UNCOMP 08/27/2019 [place] DO, NKECHI B Ot F17.2 10 NICOTINE DEPENDENCE, CIGARETTES, UNCOMPL 08/27/2019 [place] DO, NKECHI B Ot F31.9 BIPOLAR DISORDER, UNSPECIFIED 08/27/2019 [place] DO, NKECHI B Ot F41.9 ANXIETY DISORDER, UNSPECIFIED 08/27/2019 [place] DO, NKECHI B Ot I49.9 CARDIAC ARRHYTHMIA, UNSPECIFIED 08/27/2019 [place] DO, NKECHI B Ot K52.9 NONINFECTIVE GASTROENTERITIS AND COLITIS 08/27/2019 [place] DO, NKECHI B Ot M54.9 DORSALGIA, UNSPECIFIED 08/27/2019 [place] DO, NKECHI B Ot N17.9 ACUTE KIDNEY FAILURE, UNSPECIFIED 08/27/2019 [place] DO, NKECHI B Ot N18.9 CHRONIC KIDNEY DISEASE, UNSPECIFIED 08/27/2019 [place] DO, NKECHI B Ot R07.9 CHEST PAIN, UNSPECIFIED 08/27/2019 [place] DO, NKECHI B Ot R10.3 1 RIGHT LOWER QUADRANT PAIN 08/27/2019 [place] DO, NKECHI B Ot R74.8 ABNORMAL LEVELS OF OTHER SERUM ENZYMES 08/28/2019 [place] DO, NKECHI B Ot A41.9 SEPSIS, UNSPECIFIED ORGANISM 08/28/2019 [place] DO, NKECHI B Ot D64.9 ANEMIA, UNSPECIFIED 08/28/2019 [place] DO, NKECHI B Ot D72.8 29 ELEVATED WHITE BLOOD CELL COUNT, UNSPECI 08/28/2019 [place] DO, NKECHI B Ot E78.0 0 PURE HYPERCHOLESTEROLEMIA, UNSPECIFIED 08/28/2019 [facility], NKECHI B Ot E86.0 DEHYDRATION 08/28/2019 [facility], NKECHI B Ot F15.9 0 OTHER STIMULANT USE, UNSPECIFIED, UNCOMP 08/28/2019 [place] DO, NKECHI B Ot F17.2 10 NICOTINE DEPENDENCE, CIGARETTES, UNCOMPL 08/28/2019 [place] DO, NKECHI B Ot F31.9 BIPOLAR DISORDER, UNSPECIFIED 08/28/2019 [facility], NKECHI B Ot F41.9 ANXIETY DISORDER, UNSPECIFIED 08/28/2019 [facility], NKECHI B Ot I49.9 CARDIAC ARRHYTHMIA, UNSPECIFIED 08/28/2019 [facility] ([facility], NKECHI B Ot K52.9 NONINFECTIVE GASTROENTERITIS AND COLITIS 08/28/2019 [facility] B Ot M54.9 DORSALGIA, UNSPECIFIED 08/28/2019 [facility], NKECHI B Ot N17.9 ACUTE KIDNEY FAILURE, UNSPECIFIED 08/28/2019 [facility] ([place], NKECHI B Ot N18.9 CHRONIC KIDNEY DISEASE, UNSPECIFIED 08/28/2019 [facility] ([place], NKECHI B Ot R07.9 CHEST PAIN, UNSPECIFIED 08/28/2019 [facility], NKECHI B Ot R10.3 1 RIGHT LOWER QUADRANT PAIN 08/28/2019 [facility], NKECHI B Ot R74.8 ABNORMAL LEVELS OF OTHER SERUM ENZYMES 08/29/2019 [place] DO, NKECHI B Ot A41.9 SEPSIS, UNSPECIFIED ORGANISM 08/29/2019 [place] DO, NKECHI B Ot D64.9 ANEMIA, UNSPECIFIED 08/29/2019 [facility] ([facility], NKECHI B Ot D72.8 29 ELEVATED WHITE BLOOD CELL COUNT, UNSPECI 08/29/2019 [place] DO, NKECHI B Ot E78.0 0 PURE HYPERCHOLESTEROLEMIA, UNSPECIFIED 08/29/2019 [facility] ([facility], NKECHI B Ot E86.0 DEHYDRATION 08/29/2019 [place] DO, NKECHI B Ot E87.6 HYPOKALEMIA 08/29/2019 [place] DO, NKECHI B Ot F15.9 0 OTHER STIMULANT USE, UNSPECIFIED, UNCOMP 08/29/2019 [place] DO, NKECHI B Ot F17.2 10 NICOTINE DEPENDENCE, CIGARETTES, UNCOMPL 08/29/2019 [place] DO, NKECHI B Ot F31.9 BIPOLAR DISORDER, UNSPECIFIED 08/29/2019 [place] DO, NKECHI B Ot F41.9 ANXIETY DISORDER, UNSPECIFIED 08/29/2019 [place] DO, NKECHI B Ot I49.9 CARDIAC ARRHYTHMIA, UNSPECIFIED 08/29/2019 [place] DO, NKECHI B Ot K52.9 NONINFECTIVE GASTROENTERITIS AND COLITIS 08/29/2019 [place] DO, NKECHI B Ot K59.0 0 CONSTIPATION, UNSPECIFIED 08/29/2019 [place] DO, NKECHI B Ot M54.9 DORSALGIA, UNSPECIFIED 08/29/2019 [place] DO, NKECHI B Ot N17.9 ACUTE KIDNEY FAILURE, UNSPECIFIED 08/29/2019 [place] DO, NKECHI B Ot N18.9 CHRONIC KIDNEY DISEASE, UNSPECIFIED 08/29/2019 [place] DO, NKECHI B Ot R07.9 CHEST PAIN, UNSPECIFIED 08/29/2019 [place] DO, NKECHI B Ot R10.3 1 RIGHT LOWER QUADRANT PAIN 08/29/2019 [place] DO, NKECHI B Ot R31.0 GROSS HEMATURIA 08/29/2019 [place] DO, NKECHI B Ot R74.8 ABNORMAL LEVELS OF OTHER SERUM ENZYMES 09/06/2019 [place] DO, NKECHI B Ot Z01.8 9 ENCOUNTER FOR OTHER SPECIFIED SPECIAL EX 09/11/2019 [place] DO, NKECHI B Ot Z01.8 9 ENCOUNTER FOR OTHER SPECIFIED SPECIAL EX 09/13/2019 [place] DO, NKECHI B Ot Z01.8 9 ENCOUNTER FOR OTHER SPECIFIED SPECIAL EX 09/17/2019 [place] DO, NKECHI B Ot E78.5 HYPERLIPIDEMIA, UNSPECIFIED 09/17/2019 [place] DO, NKECHI B Ot F17.2 10 NICOTINE DEPENDENCE, CIGARETTES, UNCOMPL 09/17/2019 [place] DO, NKECHI B Ot F31.9 BIPOLAR DISORDER, UNSPECIFIED 09/17/2019 [place] DO, NKECHI B Ot F41.9 ANXIETY DISORDER, UNSPECIFIED 09/17/2019 [facility] DONKECHI Ot I49.3 VENTRICULAR PREMATURE DEPOLARIZATION 09/17/2019 [facility] NKECHI B Ot K63.0 ABSCESS OF INTESTINE 09/17/2019 [facility] DYLANIC B Ot K63.1 PERFORATION OF INTESTINE (NONTRAUMATIC) 09/17/2019 [facility] NKECHI B Ot 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 09/17/2019 [facility] NKECHI B Ot M54.9 DORSALGIA, UNSPECIFIED 09/17/2019 [facility] NKECHI B Ot Q43.0 MECKEL'S DIVERTICULUM (DISPLACED) (HYPER Procedures Code Description [place] [id number] CULT URE WOUND (AEROBIC) 09/22/[id number] HUGO OF SMALL INTESTINE, OPEN APPROA 09/14/2019 [id number] EX CISION OF SMALL INTESTINE, OPEN APPROA 09/14/2019 [id number] EX CISION OF APPENDIX, OPEN APPROACH 09/14/2019 [id number] IN SPECTION OF LOWER INTESTINAL TRACT, PE 09/14/2019 Results Test Result Range LIPID PANEL - 09/20/18 12:36 CHOLESTEROL, TOTAL 203 mg/dL <200 HDL CHOLESTEROL 42 mg/dL >40 TRIGLYCERIDES 197 mg/dL <150 LDL-CHOLESTEROL 127 mg/dL (calc) NRG CHOL/HDLC RATIO 4.8 (calc) <5.0 NON HDL CHOLESTEROL 161 mg/dL (calc) <13 0 CMP - 09/20/18 12:36 GLUCOSE 108 mg/dL 65-99 UREA NITROGEN (BUN) 12 mg/dL 7-25 CREATININE 1.38 mg/dL 0.70-1.33 eGFR NON-AFR. CYMRAES 57 mL/min/1.73m2 > OR = 60 eGFR [...] i.cardiac measurement (mass/v olume) < ng/mL <0.028 Human immunodeficiency virus (HIV) type 1 and 2 antibody detection - 08/22/19 21:30 Serum HIV 1+2 antibody detection by immunoblot Non-Reactive Non-Reactive Acute hepatitis panel - 08/22/19 21:30 HEPATITIS A ANTIBODY IGM Non-Reactive N on-Reactive HEPATITIS B CORE MANA IGM Non-Reactive N on-Reactive Confirmatory quantitative serum or plasm a hepatitis B virus surface antigen measurement Non-Reactive Non-Reactive Serum hepatitis C virus antibody detection Non-Jordyn ctive Non-Reactive Complete blood count (CBC) with automate d [...] lactic acid measurement (moles/volume) 1.35 mmol/L 0.50-2.00 Bacterial blood culture - 08/22/19 21:50 Bacterial blood culture NG NRG Bacterial blood culture - 08/22/19 21:56 Bacterial blood culture NG NRG Complete urinalysis with reflex to cultu re [...] TIVE Urine propoxyphene detection NEGATIVE N EGATIVE Complete blood count (CBC) with automate d white blood cell (WBC) differential - 08/23/19 05:15 Blood leukocytes automated count (number/volume) 9.8 10*3/uL 4.3-11.0 Blood erythrocytes automated count (number/volume) 4.06 10*6/uL 4.35-5.85 Venous blood hemoglobin measurement (mass/volume) 11.3 g/dL 13.3-17.7 Blood hematocrit (volume fraction) 33 % 40-54 Automated erythrocyte mean corpuscular volume 82 [ foz_us] 80-99 Automated erythrocyte mean corpuscular h emoglobin (mass per erythrocyte) 28 pg 25-34 Automated erythrocyte mean corpuscular h emoglobin concentration measurement (mass/volume) 34 g/dL 32-36 Automated erythrocyte distribution width ratio 13. 7 % 10.0- 14.5 Automated blood platelet count (count/volume) 293 10*3/uL 130-400 Automated blood platelet mean volume measurement 10.7 [foz_us] 7.4-10.4 Automated blood neutrophils/100 leukocytes 67 % 42-75 Automated blood lymphocytes/100 leukocytes 16 % 12-44 Blood monocytes/100 leukocytes 16 % 0-12 Automated blood eosinophils/100 leukocytes 1 % 0-10 Automated blood basophils/100 leukocytes 0 % 0-10 Blood neutrophils automated count (number/volume) 6.6 10*3 1.8-7.8 Blood lymphocytes automated count (number/volume) 1.6 10*3 1.0-4.0 Blood monocytes automated count (number/volume) 1. 6 10*3 0.0-1.0 Automated eosinophil count 0.1 10*3/uL 0 .0-0.3 Automated blood basophil count (count/volume) 0.0 10*3/uL 0.0-0.1 Comprehensive metabolic panel - 08/23/19 05:15 Serum or plasma sodium measurement (moles/volume) 135 mmol/L 135-145 Serum or plasma potassium measurement (moles/volume) 3.7 mmol/L 3.6-5.0 Serum or plasma chloride measurement (moles/volume) 102 mmol/L 98-107 Carbon dioxide 22 mmol/L 21-32 Serum or plasma anion gap determination (moles/volume) 11 mmol/L 5-14 Serum or plasma urea nitrogen measurement (mass/volume ) 49 mg/dL 7-18 Serum or plasma creatinine measurement (mass/volume) 1.94 mg/dL 0.60-1.30 Serum or plasma urea nitrogen/creatinine mass ratio 25 NRG Serum or plasma creatinine measurement w ith calculation of estimated glomerular filtration rate 43 NRG Serum or plasma glucose measurement (mass/volume) 149 mg/dL 70-105 Serum or plasma calcium measurement (mass/volume) 7.8 mg/dL 8.5-10.1 Serum or plasma total bilirubin measurement (mass/volu me) 2.2 mg/dL 0.1-1.0 Serum or plasma alkaline phosphatase yuval surement (enzymatic activity/volume) 47 U/L 40-136 Serum or plasma aspartate aminotransfera se measurement (enzymatic activity/volume) 53 U/L 5-34 Serum or plasma alanine aminotransferase measurement (enzymatic activity/volume) 62 U/L 0-55 Serum or plasma protein measurement (mass/volume) 5.5 g/dL 6.4-8.2 Serum or plasma albumin measurement (mass/volume) 2.8 g/dL 3.2-4.5 CALCIUM CORRECTED 8.8 mg/dL 8.5-10.1 Complete blood count (CBC) with automate d white blood cell (WBC) differential - 08/24/19 06:55 Blood leukocytes automated count (number/volume) 12.1 10*3/uL 4.3-11.0 Blood erythrocytes automated count (number/volume) 3.85 10*6/uL 4.35-5.85 Venous blood hemoglobin measurement (mass/volume) 10.8 g/dL 13.3-17.7 Blood hematocrit (volume fraction) 32 % 40-54 Automated erythrocyte mean corpuscular volume 83 [ foz_us] 80-99 Automated erythrocyte mean corpuscular h emoglobin (mass per erythrocyte) 28 pg 25-34 Automated erythrocyte mean corpuscular h emoglobin concentration measurement (mass/volume) 34 g/dL 32-36 Automated erythrocyte distribution width ratio 13. 5 % 10.0- 14.5 Automated blood platelet count (count/volume) 286 10*3/uL 130-400 Automated blood platelet mean volume measurement 10.0 [foz_us] 7.4-10.4 Automated blood neutrophils/100 leukocytes 70 % 42-75 Automated blood lymphocytes/100 leukocytes 17 % 12-44 Blood monocytes/100 leukocytes 12 % 0-12 Automated blood eosinophils/100 leukocytes 0 % 0-10 Automated blood basophils/100 leukocytes 1 % 0-10 Blood neutrophils automated count (number/volume) 8.5 10*3 1.8-7.8 Blood lymphocytes automated count (number/volume) 2.1 10*3 1.0-4.0 Blood monocytes automated count (number/volume) 1. 4 10*3 0.0-1.0 Automated eosinophil count 0.1 10*3/uL 0 .0-0.3 Automated blood basophil count (count/volume) 0.1 10*3/uL 0.0-0.1 Comprehensive metabolic panel - 08/24/19 06:55 Serum or plasma sodium measurement (moles/volume) 138 mmol/L 135-145 Serum or plasma potassium measurement (moles/volume) 4.1 mmol/L 3.6-5.0 Serum or plasma chloride measurement (moles/volume) 106 mmol/L 98-107 Carbon dioxide 22 mmol/L 21-32 Serum or plasma anion gap determination (moles/volume) 10 mmol/L 5-14 Serum or plasma urea nitrogen measurement (mass/volume ) 22 mg/dL 7-18 Serum or plasma creatinine measurement (mass/volume) 1.51 mg/dL 0.60-1.30 Serum or plasma urea nitrogen/creatinine mass ratio 15 NRG Serum or plasma creatinine measurement w ith calculation of estimated glomerular filtration rate 58 NRG Serum or plasma glucose measurement (mass/volume) 112 mg/dL 70-105 Serum or plasma calcium measurement (mass/volume) 8.0 mg/dL 8.5-10.1 Serum or plasma total bilirubin measurement (mass/volu me) 1.4 mg/dL 0.1-1.0 Serum or plasma alkaline phosphatase yuval surement (enzymatic activity/volume) 50 U/L 40-136 Serum or plasma aspartate aminotransfera se measurement (enzymatic activity/volume) 38 U/L 5-34 Serum or plasma alanine aminotransferase measurement (enzymatic activity/volume) 53 U/L 0-55 Serum or plasma protein measurement (mass/volume) 5.4 g/dL 6.4-8.2 Serum or plasma albumin measurement (mass/volume) 2.8 g/dL 3.2-4.5 CALCIUM CORRECTED 9.0 mg/dL 8.5-10.1 Complete blood count (CBC) with automate d white blood cell (WBC) differential - 08/25/19 06:32 Blood leukocytes automated count (number/volume) 11.4 10*3/uL 4.3-11.0 Blood erythrocytes automated count (number/volume) 3.50 10*6/uL 4.35-5.85 Venous blood hemoglobin measurement (mass/volume) 9.8 g/dL 13.3-17.7 Blood hematocrit (volume fraction) 29 % 40-54 Automated erythrocyte mean corpuscular volume 84 [ foz_us] 80-99 Automated erythrocyte mean corpuscular h emoglobin (mass per erythrocyte) 28 pg 25-34 Automated erythrocyte mean corpuscular h emoglobin concentration measurement (mass/volume) 33 g/dL 32-36 Automated erythrocyte distribution width ratio 14. 0 % 10.0- 14.5 Automated blood platelet count (count/volume) 293 10*3/uL 130-400 Automated blood platelet mean volume measurement 10.6 [foz_us] 7.4-10.4 Automated blood neutrophils/100 leukocytes 72 % 42-75 Automated blood lymphocytes/100 leukocytes 20 % 12-44 Blood monocytes/100 leukocytes 8 % 0-12 Automated blood eosinophils/100 leukocytes 0 % 0-10 Automated blood basophils/100 leukocytes 0 % 0-10 Blood neutrophils automated count (number/volume) 8.2 10*3 1.8-7.8 Blood lymphocytes automated count (number/volume) 2.3 10*3 1.0-4.0 Blood monocytes automated count (number/volume) 0. 9 10*3 0.0-1.0 Automated eosinophil count 0.0 10*3/uL 0 .0-0.3 Automated blood basophil count (count/volume) 0.0 10*3/uL 0.0-0.1 Comprehensive metabolic panel - 08/25/19 06:32 Serum or plasma sodium measurement (moles/volume) 139 mmol/L 135-145 Serum or plasma potassium measurement (moles/volume) 4.1 mmol/L 3.6-5.0 Serum or plasma chloride measurement (moles/volume) 108 mmol/L 98-107 Carbon dioxide 21 mmol/L 21-32 Serum or plasma anion gap determination (moles/volume) 10 mmol/L 5-14 Serum or plasma urea nitrogen measurement (mass/volume ) 15 mg/dL 7-18 Serum or plasma creatinine measurement (mass/volume) 1.45 mg/dL 0.60-1.30 Serum or plasma urea nitrogen/creatinine mass ratio 10 NRG Serum or plasma creatinine measurement w ith calculation of estimated glomerular filtration rate > NRG Serum or plasma glucose measurement (mass/volume) 96 mg/dL 70-105 Serum or plasma calcium measurement (mass/volume) 7.9 mg/dL 8.5-10.1 Serum or plasma total bilirubin measurement (mass/volu me) 1.0 mg/dL 0.1-1.0 Serum or plasma alkaline phosphatase yuval surement (enzymatic activity/volume) 49 U/L 40-136 Serum or plasma aspartate aminotransfera se measurement (enzymatic activity/volume) 29 U/L 5-34 Serum or plasma alanine aminotransferase measurement (enzymatic activity/volume) 40 U/L 0-55 Serum or plasma protein measurement (mass/volume) 5.1 g/dL 6.4-8.2 Serum or plasma albumin measurement (mass/volume) 2.6 g/dL 3.2-4.5 CALCIUM CORRECTED 9.0 mg/dL 8.5-10.1 Complete blood count (CBC) with automate d white blood cell (WBC) differential - 08/27/19 04:11 Blood leukocytes automated count (number/volume) 8.4 10*3/uL 4.3-11.0 Blood erythrocytes automated count (number/volume) 3.31 10*6/uL 4.35-5.85 Venous blood hemoglobin measurement (mass/volume) 9.2 g/dL 13.3-17.7 Blood hematocrit (volume fraction) 27 % 40-54 Automated erythrocyte mean corpuscular volume 83 [ foz_us] 80-99 Automated erythrocyte mean corpuscular h emoglobin (mass per erythrocyte) 28 pg 25-34 Automated erythrocyte mean corpuscular h emoglobin concentration measurement (mass/volume) 34 g/dL 32-36 Automated erythrocyte distribution width ratio 13. 7 % 10.0- 14.5 Automated blood platelet count (count/volume) 287 10*3/uL 130-400 Automated blood platelet mean volume measurement 10.1 [foz_us] 7.4-10.4 Automated blood neutrophils/100 leukocytes 62 % 42-75 Automated blood lymphocytes/100 leukocytes 29 % 12-44 Blood monocytes/100 leukocytes 8 % 0-12 Automated blood eosinophils/100 leukocytes 1 % 0-10 Automated blood basophils/100 leukocytes 0 % 0-10 Blood neutrophils automated count (number/volume) 5.2 10*3 1.8-7.8 Blood lymphocytes automated count (number/volume) 2.4 10*3 1.0-4.0 Blood monocytes automated count (number/volume) 0. 7 10*3 0.0-1.0 Automated eosinophil count 0.1 10*3/uL 0 .0-0.3 Automated blood basophil count (count/volume) 0.0 10*3/uL 0.0-0.1 Comprehensive metabolic panel - 08/27/19 04:11 Serum or plasma sodium measurement (moles/volume) 140 mmol/L 135-145 Serum or plasma potassium measurement (moles/volume) 3.4 mmol/L 3.6-5.0 Serum or plasma chloride measurement (moles/volume) 110 mmol/L 98-107 Carbon dioxide 20 mmol/L 21-32 Serum or plasma anion gap determination (moles/volume) 10 mmol/L 5-14 Serum or plasma urea nitrogen measurement (mass/volume ) 6 mg/dL 7-18 Serum or plasma creatinine measurement (mass/volume) 1.29 mg/dL 0.60-1.30 Serum or plasma urea nitrogen/creatinine mass ratio 5 NRG Serum or plasma creatinine measurement w ith calculation of estimated glomerular filtration rate > NRG Serum or plasma glucose measurement (mass/volume) 114 mg/dL 70-105 Serum or plasma calcium measurement (mass/volume) 7.2 mg/dL 8.5-10.1 Serum or plasma total bilirubin measurement (mass/volu me) 0.5 mg/dL 0.1-1.0 Serum or plasma alkaline phosphatase yuval surement (enzymatic activity/volume) 44 U/L 40-136 Serum or plasma aspartate aminotransfera se measurement (enzymatic activity/volume) 18 U/L 5-34 Serum or plasma alanine aminotransferase measurement (enzymatic activity/volume) 27 U/L 0-55 Serum or plasma protein measurement (mass/volume) 4.8 g/dL 6.4-8.2 Serum or plasma albumin measurement (mass/volume) 2.4 g/dL 3.2-4.5 CALCIUM CORRECTED 8.5 mg/dL 8.5-10.1 Complete urinalysis with reflex to cultu re - 08/27/19 08:55 Urine color determination YELLOW NRG Urine clarity determination CLEAR NR G Urine pH measurement by test strip 6.5 5-9 Specific gravity of urine by test strip 1.020 1.016-1.022 Urine protein assay by test strip, semi-quantitative NEGATIVE NEGATIVE Urine glucose detection by automated test strip TR LANEY NEGATIVE Erythrocytes detection in urine sediment by light micr oscopy 3+ NEGATIVE Urine ketones detection by automated test strip NE GATIVE NEGATIVE Urine nitrite detection by test strip NEGATIVE NEGATIVE Urine total bilirubin detection by test strip NEGA TIVE NEGATIVE Urine urobilinogen measurement by automated test strip (mass/volume) 0.2 mg/dL < = 1.0 Urine leukocyte esterase detection by dipstick TRA CE NEGATIVE Automated urine sediment erythrocyte cou nt by microscopy (number/high power field) [HPF] NRG Automated urine sediment leukocyte count by microscopy (number/high power field) [HPF] NRG Bacteria detection in urine sediment by light microsco py NEGATIVE NRG Squamous epithelial cells detection in u rine sediment by light microscopy RARE NRG Crystals detection in urine sediment by light microsco py NONE NRG Casts detection in urine sediment by light microscopy NONE NRG Mucus detection in urine sediment by light microscopy NEGATIVE NRG Complete urinalysis with reflex to culture NO NRG Complete blood count (CBC) with automate d white blood cell (WBC) differential - 08/28/19 05:05 Blood leukocytes automated count (number/volume) 6.4 10*3/uL 4.3-11.0 Blood erythrocytes automated count (number/volume) 3.24 10*6/uL 4.35-5.85 Venous blood hemoglobin measurement (mass/volume) 9.0 g/dL 13.3-17.7 Blood hematocrit (volume fraction) 27 % 40-54 Automated erythrocyte mean corpuscular volume 83 [ foz_us] 80-99 Automated erythrocyte mean corpuscular h emoglobin (mass per erythrocyte) 28 pg 25-34 Automated erythrocyte mean corpuscular h emoglobin concentration measurement (mass/volume) 33 g/dL 32-36 Automated erythrocyte distribution width ratio 13. 5 % 10.0- 14.5 Automated blood platelet count (count/volume) 270 10*3/uL 130-400 Automated blood platelet mean volume measurement 10.1 [foz_us] 7.4-10.4 Automated blood neutrophils/100 leukocytes 53 % 42-75 Automated blood lymphocytes/100 leukocytes 35 % 12-44 Blood monocytes/100 leukocytes 11 % 0-12 Automated blood eosinophils/100 leukocytes 1 % 0-10 Automated blood basophils/100 leukocytes 0 % 0-10 Blood neutrophils automated count (number/volume) 3.4 10*3 1.8-7.8 Blood lymphocytes automated count (number/volume) 2.3 10*3 1.0-4.0 Blood monocytes automated count (number/volume) 0. 7 10*3 0.0-1.0 Automated eosinophil count 0.1 10*3/uL 0 .0-0.3 Automated blood basophil count (count/volume) 0.0 10*3/uL 0.0-0.1 Comprehensive metabolic panel - 08/28/19 05:05 Serum or plasma sodium measurement (moles/volume) 141 mmol/L 135-145 Serum or plasma potassium measurement (moles/volume) 3.3 mmol/L 3.6-5.0 Serum or plasma chloride measurement (moles/volume) 110 mmol/L 98-107 Carbon dioxide 22 mmol/L 21-32 Serum or plasma anion gap determination (moles/volume) 9 mmol/L 5-14 Serum or plasma urea nitrogen measurement (mass/volume ) 4 mg/dL 7-18 Serum or plasma creatinine measurement (mass/volume) 1.21 mg/dL 0.60-1.30 Serum or plasma urea nitrogen/creatinine mass ratio 3 NRG Serum or plasma creatinine measurement w ith calculation of estimated glomerular filtration rate > NRG Serum or plasma glucose measurement (mass/volume) 108 mg/dL 70-105 Serum or plasma calcium measurement (mass/volume) 7.0 mg/dL 8.5-10.1 Serum or plasma total bilirubin measurement (mass/volu me) 0.5 mg/dL 0.1-1.0 Serum or plasma alkaline phosphatase yuval surement (enzymatic activity/volume) 43 U/L 40-136 Serum or plasma aspartate aminotransfera se measurement (enzymatic activity/volume) 16 U/L 5-34 Serum or plasma alanine aminotransferase measurement (enzymatic activity/volume) 22 U/L 0-55 Serum or plasma protein measurement (mass/volume) 4.8 g/dL 6.4-8.2 Serum or plasma albumin measurement (mass/volume) 2.4 g/dL 3.2-4.5 CALCIUM CORRECTED 8.3 mg/dL 8.5-10.1 Pathologist review of blood test by lb ent - 08/29/19 05:17 Blood leukocytes automated count (number/volume) 9.4 10*3/uL 4.3-11.0 Blood erythrocytes automated count (number/volume) 3.27 10*6/uL 4.35-5.85 Venous blood hemoglobin measurement (mass/volume) 9.0 g/dL 13.3-17.7 Blood hematocrit (volume fraction) 27 % 40-54 Automated erythrocyte mean corpuscular volume 83 [ [facility]] 80-99 Automated erythrocyte mean corpuscular h emoglobin (mass per erythrocyte) 28 pg 25-34 Automated erythrocyte mean corpuscular h emoglobin concentration measurement (mass/volume) 33 g/dL 32-36 Automated erythrocyte distribution width ratio 13. 7 % 10.0- 14.5 Automated blood platelet count (count/volume) 295 10*3/uL 130-400 Automated blood platelet mean volume measurement 9.8 [[facility]] 7.4-10.4 Automated blood neutrophils/100 leukocytes 66 % 42-75 Automated blood lymphocytes/100 leukocytes 24 % 12-44 Blood monocytes/100 leukocytes 5 % NRG Automated blood eosinophils/100 leukocytes 1 % 0-10 Automated blood basophils/100 leukocytes 0 % 0-10 Blood neutrophils automated count (number/volume) 6.3 10*3 1.8-7.8 Blood lymphocytes automated count (number/volume) 2.3 10*3 1.0-4.0 Blood monocytes automated count (number/volume) 0. 9 10*3 0.0-1.0 Automated eosinophil count 0.1 10*3/uL 0 .0-0.3 Automated blood basophil count (count/volume) 0.0 10*3/uL 0.0-0.1 Manual blood segmented neutrophils/100 leukocytes 69 % NRG Blood band neutrophils/100 leukocytes 0 % NRG Manual blood lymphocytes/100 leukocytes 26 % NRG Manual eosinophils/100 leukocytes in nose 0 % NRG Manual blood basophils/100 leukocytes 0 % NRG Blood erythrocyte morphology finding identification NORMAL NR Blood reticulocytes count (number/volume) 93 10*9/ L 24-90 Blood reticulocytes/100 erythrocytes 2.79 % 0.50-2.40 Comprehensive metabolic panel - 08/29/19 05:17 Serum or plasma sodium measurement (moles/volume) 140 mmol/L 135-145 Serum or plasma potassium measurement (moles/volume) 3.5 mmol/L 3.6-5.0 Serum or plasma chloride measurement (moles/volume) 110 mmol/L 98-107 Carbon dioxide 20 mmol/L 21-32 Serum or plasma anion gap determination (moles/volume) 10 mmol/L 5-14 Serum or plasma urea nitrogen measurement (mass/volume ) 5 mg/dL 7-18 Serum or plasma creatinine measurement (mass/volume) 1.14 mg/dL 0.60-1.30 Serum or plasma urea nitrogen/creatinine mass ratio 4 NRG Serum or plasma creatinine measurement w ith calculation of estimated glomerular filtration rate > NRG Serum or plasma glucose measurement (mass/volume) 105 mg/dL 70-105 Serum or plasma calcium measurement (mass/volume) 7.2 mg/dL 8.5-10.1 Serum or plasma total bilirubin measurement (mass/volu me) 0.4 mg/dL 0.1-1.0 Serum or plasma alkaline phosphatase yuval surement (enzymatic activity/volume) 44 U/L 40-136 Serum or plasma aspartate aminotransfera se measurement (enzymatic activity/volume) 13 U/L 5-34 Serum or plasma alanine aminotransferase measurement (enzymatic activity/volume) 19 U/L 0-55 Serum or plasma protein measurement (mass/volume) 5.0 g/dL 6.4-8.2 Serum or plasma albumin measurement (mass/volume) 2.6 g/dL 3.2-4.5 CALCIUM CORRECTED 8.3 mg/dL 8.5-10.1 Serum iron and total iron binding capaci ty panel - 08/29/19 05:17 TIBC 186 % 280-380 UIBC 138 % 55-450 Serum or plasma iron measurement (mass/volume) 48 % 40-180 Total iron binding capacity and transferrin saturation measurement 26 % 15-50 Serum or plasma ferritin measurement (mass/volume) 299.9 % 32.0-356.0 Complete blood count (CBC) with automate d white blood cell (WBC) differential - 09/13/19 19:16 Blood leukocytes automated count (number/volume) 7.1 10*3/uL 4.3-11.0 Blood erythrocytes automated count (number/volume) 4.30 10*6/uL 4.35-5.85 Venous blood hemoglobin measurement (mass/volume) 12.2 g/dL 13.3-17.7 Blood hematocrit (volume fraction) 36 % 40-54 Automated erythrocyte mean corpuscular volume 85 [ foz_us] 80-99 Automated erythrocyte mean corpuscular h emoglobin (mass per erythrocyte) 28 pg 25-34 Automated erythrocyte mean corpuscular h emoglobin concentration measurement (mass/volume) 34 g/dL 32-36 Automated erythrocyte distribution width ratio 14. 9 % 10.0- 14.5 Automated blood platelet count (count/volume) 346 10*3/uL 130-400 Automated blood platelet mean volume measurement 10.3 [foz_us] 7.4-10.4 Automated blood neutrophils/100 leukocytes 56 % 42-75 Automated blood lymphocytes/100 leukocytes 35 % 12-44 Blood monocytes/100 leukocytes 7 % 0-12 Automated blood eosinophils/100 leukocytes 1 % 0-10 Automated blood basophils/100 leukocytes 0 % 0-10 Blood neutrophils automated count (number/volume) 4.0 10*3 1.8-7.8 Blood lymphocytes automated count (number/volume) 2.5 10*3 1.0-4.0 Blood monocytes automated count (number/volume) 0. 5 10*3 0.0-1.0 Automated eosinophil count 0.1 10*3/uL 0 .0-0.3 Automated blood basophil count (count/volume) 0.0 10*3/uL 0.0-0.1 Comprehensive metabolic panel - 09/13/19 19:16 Serum or plasma sodium measurement (moles/volume) 142 mmol/L 135-145 Serum or plasma potassium measurement (moles/volume) 4.2 mmol/L 3.6-5.0 Serum or plasma chloride measurement (moles/volume) 110 mmol/L 98-107 Carbon dioxide 19 mmol/L 21-32 Serum or plasma anion gap determination (moles/volume) 13 mmol/L 5-14 Serum or plasma urea nitrogen measurement (mass/volume ) 6 mg/dL 7-18 Serum or plasma creatinine measurement (mass/volume) 1.28 mg/dL 0.60-1.30 Serum or plasma urea nitrogen/creatinine mass ratio 5 NRG Serum or plasma creatinine measurement w ith calculation of estimated glomerular filtration rate > NRG Serum or plasma glucose measurement (mass/volume) 103 mg/dL 70-105 Serum or plasma calcium measurement (mass/volume) 8.4 mg/dL 8.5-10.1 Serum or plasma total bilirubin measurement (mass/volu me) 0.4 mg/dL 0.1-1.0 Serum or plasma alkaline phosphatase yuval surement (enzymatic activity/volume) 91 U/L 40-136 Serum or plasma aspartate aminotransfera se measurement (enzymatic activity/volume) 16 U/L 5-34 Serum or plasma alanine aminotransferase measurement (enzymatic activity/volume) 12 U/L 0-55 Serum or plasma protein measurement (mass/volume) 6.6 g/dL 6.4-8.2 Serum or plasma albumin measurement (mass/volume) 3.4 g/dL 3.2-4.5 CALCIUM CORRECTED 8.9 mg/dL 8.5-10.1 Complete urinalysis with reflex to cultu re - 09/13/19 20:48 Urine color determination YELLOW NRG Urine clarity determination CLEAR NR G Urine pH measurement by test strip 6.0 5-9 Specific gravity of urine by test strip 1.015 1.016-1.022 Urine protein assay by test strip, semi-quantitative NEGATIVE NEGATIVE Urine glucose detection by automated test strip NE GATIVE NEGATIVE Erythrocytes detection in urine sediment by light micr oscopy NEGATIVE NEGATIVE Urine ketones detection by automated test strip NE GATIVE NEGATIVE Urine nitrite detection by test strip NEGATIVE NEGATIVE Urine total bilirubin detection by test strip NEGA TIVE NEGATIVE Urine urobilinogen measurement by automated test strip (mass/volume) 0.2 mg/dL < = 1.0 Urine leukocyte esterase detection by dipstick NEG ATIVE NEGATIVE Automated urine sediment erythrocyte cou nt by microscopy (number/high power field) [HPF] NRG Automated urine sediment leukocyte count by [...] URATES NRG Urine drug screening test - 09/13/19 20: 48 Urine phencyclidine detection by screening method NEGATIVE NEGATIVE Urine benzodiazepines detection by screening method NEGATIVE NEGATIVE Urine cocaine detection NEGATIVE NEGATI VE Urine amphetamines detection by screening method N EGATIVE NEGATIVE Urine methamphetamine detection by screening method NEGATIVE NEGATIVE Urine cannabinoids detection by screening method N EGATIVE NEGATIVE Urine opiates detection by screening method POSITI VE NEGATIVE Urine barbiturates detection NEGATIVE N EGATIVE Screening urine tricyclic antidepressants detection POSITIVE NEGATIVE Urine methadone detection by screening method NEGA TIVE NEGATIVE Urine oxycodone detection NEGATIVE NEGA TIVE Urine propoxyphene detection NEGATIVE N EGATIVE Complete blood count (CBC) with automate d white blood cell (WBC) differential - 09/14/19 06:00 Blood leukocytes automated count (number/volume) 8.9 10*3/uL 4.3-11.0 Blood erythrocytes automated count (number/volume) 4.16 10*6/uL 4.35-5.85 Venous blood hemoglobin measurement (mass/volume) 11.7 g/dL 13.3-17.7 Blood hematocrit (volume fraction) 35 % 40-54 Automated erythrocyte mean corpuscular volume 85 [ foz_us] 80-99 Automated erythrocyte mean corpuscular h emoglobin (mass per erythrocyte) 28 pg 25-34 Automated erythrocyte mean corpuscular h emoglobin concentration measurement (mass/volume) 33 g/dL 32-36 Automated erythrocyte distribution width ratio 14. 8 % 10.0- 14.5 Automated blood platelet count (count/volume) 310 10*3/uL 130-400 Automated blood platelet mean volume measurement 10.5 [foz_us] 7.4-10.4 Automated blood neutrophils/100 leukocytes 78 % 42-75 Automated blood lymphocytes/100 leukocytes 15 % 12-44 Blood monocytes/100 leukocytes 7 % 0-12 Automated blood eosinophils/100 leukocytes 0 % 0-10 Automated blood basophils/100 leukocytes 0 % 0-10 Blood neutrophils automated count (number/volume) 6.9 10*3 1.8-7.8 Blood lymphocytes automated count (number/volume) 1.4 10*3 1.0-4.0 Blood monocytes automated count (number/volume) 0. 6 10*3 0.0-1.0 Automated eosinophil count 0.0 10*3/uL 0 .0-0.3 Automated blood basophil count (count/volume) 0.0 10*3/uL 0.0-0.1 Comprehensive metabolic panel - 09/14/19 06:00 Serum or plasma sodium measurement (moles/volume) 141 mmol/L 135-145 Serum or plasma potassium measurement (moles/volume) 4.2 mmol/L 3.6-5.0 Serum or plasma chloride measurement (moles/volume) 112 mmol/L 98-107 Carbon dioxide 21 mmol/L 21-32 Serum or plasma anion gap determination (moles/volume) 8 mmol/L 5-14 Serum or plasma urea nitrogen measurement (mass/volume ) 6 mg/dL 7-18 Serum or plasma creatinine measurement (mass/volume) 1.21 mg/dL 0.60-1.30 Serum or plasma urea nitrogen/creatinine mass ratio 5 NRG Serum or plasma creatinine measurement w ith calculation of estimated glomerular filtration rate > NRG Serum or plasma glucose measurement (mass/volume) 113 mg/dL 70-105 Serum or plasma calcium measurement (mass/volume) 8.2 mg/dL 8.5-10.1 Serum or plasma total bilirubin measurement (mass/volu me) 0.5 mg/dL 0.1-1.0 Serum or plasma alkaline phosphatase yuval surement (enzymatic activity/volume) 86 U/L 40-136 Serum or plasma aspartate aminotransfera se measurement (enzymatic activity/volume) 12 U/L 5-34 Serum or plasma alanine aminotransferase measurement (enzymatic activity/volume) 12 U/L 0-55 Serum or plasma protein measurement (mass/volume) 5.8 g/dL 6.4-8.2 Serum or plasma albumin measurement (mass/volume) 3.0 g/dL 3.2-4.5 CALCIUM CORRECTED 9.0 mg/dL 8.5-10.1 Methicillin resistant Staphylococcus aur eus (MRSA) screening culture - 09/14/19 13:10 Methicillin resistant Staphylococcus aureus (MRSA) scr eening culture NEG NRG Complete blood count (CBC) with automate d white blood cell (WBC) differential - 09/17/19 04:58 Blood leukocytes automated count (number/volume) 6.9 10*3/uL 4.3-11.0 Blood erythrocytes automated count (number/volume) 3.43 10*6/uL 4.35-5.85 Venous blood hemoglobin measurement (mass/volume) 9.6 g/dL 13.3-17.7 Blood hematocrit (volume fraction) 29 % 40-54 Automated erythrocyte mean corpuscular volume 84 [ foz_us] 80-99 Automated erythrocyte mean corpuscular h emoglobin (mass per erythrocyte) 28 pg 25-34 Automated erythrocyte mean corpuscular h emoglobin concentration measurement (mass/volume) 33 g/dL 32-36 Automated erythrocyte distribution width ratio 14. 6 % 10.0- 14.5 Automated blood platelet count (count/volume) 289 10*3/uL 130-400 Automated blood platelet mean volume measurement 10.1 [foz_us] 7.4-10.4 Automated blood neutrophils/100 leukocytes 62 % 42-75 Automated blood lymphocytes/100 leukocytes 29 % 12-44 Blood monocytes/100 leukocytes 8 % 0-12 Automated blood eosinophils/100 leukocytes 1 % 0-10 Automated blood basophils/100 leukocytes 0 % 0-10 Blood neutrophils automated count (number/volume) 4.3 10*3 1.8-7.8 Blood lymphocytes automated count (number/volume) 2.0 10*3 1.0-4.0 Blood monocytes automated count (number/volume) 0. 6 10*3 0.0-1.0 Automated eosinophil count 0.1 10*3/uL 0 .0-0.3 Automated blood basophil count (count/volume) 0.0 10*3/uL 0.0-0.1 Comprehensive metabolic panel - 09/17/19 05:48 Serum or plasma sodium measurement (moles/volume) 143 mmol/L 135-145 Serum or plasma potassium measurement (moles/volume) 3.6 mmol/L 3.6-5.0 Serum or plasma chloride measurement (moles/volume) 111 mmol/L 98-107 Carbon dioxide 21 mmol/L 21-32 Serum or plasma anion gap determination (moles/volume) 11 mmol/L 5-14 Serum or plasma urea nitrogen measurement (mass/volume ) 7 mg/dL 7-18 Serum or plasma creatinine measurement (mass/volume) 1.14 mg/dL 0.60-1.30 Serum or plasma urea nitrogen/creatinine mass ratio 6 NRG Serum or plasma creatinine measurement w ith calculation of estimated glomerular filtration rate > NRG Serum or plasma glucose measurement (mass/volume) 99 mg/dL 70-105 Serum or plasma calcium measurement (mass/volume) 7.8 mg/dL 8.5-10.1 Serum or plasma total bilirubin measurement (mass/volu me) 0.3 mg/dL 0.1-1.0 Serum or plasma alkaline phosphatase yuval surement (enzymatic activity/volume) 64 U/L 40-136 Serum or plasma aspartate aminotransfera se measurement (enzymatic activity/volume) 10 U/L 5-34 Serum or plasma alanine aminotransferase measurement (enzymatic activity/volume) 7 U/L 0-55 Serum or plasma protein measurement (mass/volume) 5.4 g/dL 6.4-8.2 Serum or plasma albumin measurement (mass/volume) 2.6 g/dL 3.2-4.5 CALCIUM CORRECTED 8.9 mg/dL 8.5-10.1 Encounters ACCT No. Visit Date/Time Discharge Status Pt. Type Provider Facility Loc./Unit Complaint [id number] 11/11/2016 15:36:54 11/11/2016 23:59: 59 CLS Outpatient Haris Garcia [id number] 05/22/2013 10:00:00 05/22/20 13 12:15:00 DIS Emergency Colt Vaughn MD [facility] [id number] 05/01/2013 15:17:00 05/01/20 13 17:25:00 DIS Emergency Isaias THOMAS, Freddie Myers [facility] [id number] 11/22/2012 08:03:00 11/23/19 13 08:43:00 DIS Emergency Calderon DEL VALLE MD, Nate Feldman [facility] [id number] 01/11/2019 10:00:00 01/11/2019 23:59: 59 CLS Outpatient CARLOS A PARIS APRN [facility] [id number] 09/20/2018 09:20:00 Document Registration [id number] 09/13/2019 20:20:00 020 13:11:00 DIS Outpatient NKECHI MCGRATH DO B [address] SBO [id number] 09/05/2019 10:06:00 23:59:59 CLS Outpatient ALCIDES BRIAN NKECHI B [facility] LAB INTEREAL FESTERA [id number] 08/22/2019 21:32:00 020 14:10:00 DIS Inpatient ALCIDES BRIAN NKECHI B [address] SEPSIS;DEHYDRATION;ACUT E RENAL FAILURE;SMALL BOWEL [id number] 05/02/2019 14:00:00 019 18:40:00 DIS Emergency MICKY LÓPEZ APRN [facility] ER SOA [id number] 12/03/2018 10:05:00 019 11:39:00 DIS Emergency CARLY MONTERROSO DO [facility] ER R FOOT PAIN / SWELLING [id number] 08/26/2015 14:00:00 016 17:33:00 DIS Emergency DHIRAJ THOMAS, SAGE Barrientos [facility] ER [id number] 08/25/2015 11:18:00 13:31:00 DIS Emergency SAGE HEARN MD [facility] ER [id number] 02/19/2015 11:40:00 13:06:00 DIS Emergency MATTEO CARLOS A Iliana [facility] ER [id number] 12/12/2014 14:55:00 23:59:59 CLS Outpatient JOYCE FUCHS DO [facility] RAD [id number] 11/04/2014 16:22:00 16:42:00 DIS Emergency MICKY LÓPEZ APRN [facility] ER [id number] 10/05/2014 14:02:00 16:54:00 DIS Emergency MICKY LÓPEZ APRN [facility] ER [id number] 09/24/2014 23:48:00 09:06:00 DIS Inpatient KANDACE VELAZCO MD [facility] SURGICAL [id number] 06/01/2014 13:48:00 15:53:00 DIS Emergency MICKY LÓPEZ APRN [facility] ER [id number] 03/22/2014 11:46:00 23:59:59 CLS Outpatient JOYCE FUCHS DO [facility] RAD [id number] 03/03/2014 16:24:00 19:33:00 DIS Emergency DAV TAYLOR MD [facility] ER [id number] 03/02/2014 19:28:00 20:51:00 DIS Emergency DAV TAYLOR MD [facility] ER [id number] 02/14/2014 10:12:00 23:59:59 CLS Outpatient JOYCE FUCHS DO [facility] RAD [id number] 02/06/2014 11:06:00 14:26:00 DIS Emergency KEMAR GRANGER [facility] ER [id number] 09/08/2013 08:59:00 23:59:59 CLS Outpatient JOYCE FUCHS DO [facility] RAD [id number] 09/07/2013 11:55:00 23:59:59 CLS Outpatient JOYCE FUCHS DO [facility] RAD [id number] 09/04/2013 09:05:00 23:59:59 CLS Outpatient JOYCE FUCHS DO [facility] RAD [id number] 06/01/2014 13:48:00 Document Registration [id number] 06/01/2014 13:48:00 Document Registration [id number] 06/01/2014 13:48:00 Document Registration [id number] 06/01/2014 13:48:00 Document Registration [id number] 03/23/2010 09:14:00 Document Registration [id number] 10/04/2012 09:57:00 Document Registration [id number] 09/20/2012 09:29:00 Document Registration
--- NOTE | 2019-09-22 12:55 | ED Abdominal Pain ---
General Stated Complaint: LEFT SIDE ABD SWELLING Source of Information: Patient Exam Limitations: No Limitations History of Present Illness Date Seen by Provider: Sep 22, 2019 Time Seen by Provider: 12:53 Initial Comments ER by private vehicle with reports of left-sided abdominal swelling onset this morning. He does have increased pain. No bowel movement and not passing any gas today. No fever no chills no nausea no vomiting. He was admitted to the hospital on 09/14/19 for bowel obstruction. 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 Discharged on 09/17. Timing/Duration: 4-6 Hours Severity/Quality: Moderate Location: LUQ, LLQ Radiation: No Radiation Activities at Onset: None Allergies and Home Medications Allergies Coded Allergies: No Known Drug Allergies (Unverified , 07/29/09) Home Medications Buspirone HCl 15 Mg Tablet, 15 MG PO BID, (Reported) Hydrocodone/Acetaminophen 1 Each Tablet, 1 EACH PO Q4H Prescribed by: BINA BUTTS on 09/17/19 1019 Quetiapine Fumarate 200 Mg Tablet, 400 MG PO HS, (Reported) TAKES 2 (200MG) TABS TO EQUAL 400MG AT BEDTIME Patient Home Medication List Home Medication List Reviewed: Yes Review of Systems Review of Systems Constitutional: see HPI; No chills, No fever EENTM: No Symptoms Reported Respiratory: No Symptoms Reported Cardiovascular: No Symptoms Reported Gastrointestinal: See HPI, Abdominal Pain; Denies Constipated, Denies Diarrhea, Denies Nausea, Denies Vomiting Genitourinary: No Symptoms Reported Musculoskeletal: no symptoms reported Skin: no symptoms reported Psychiatric/Neurological: No Symptoms Reported Endocrine: No Symptoms Reported Past Qpuhaak-Cqigbk-Xpjqml Hx Patient Social History Drug of Choice: THC, UDS+ FOR AMPHETAMINES/METH AMPHETAMINES 08/22/19 Type Used: Cigarettes Recent Foreign Travel: No Contact w/Someone Who Travel: No Immunizations Up To Date Tetanus Booster (TDap): Unknown PED Vaccines UTD: Yes Seasonal Allergies Seasonal Allergies: No Past Medical History Surgeries: Yes (KELOID REMOVAL; BACK SURGERY) Abdominal, Orthopedic Respiratory: No Cardiac: Yes High Cholesterol, Irregular Heartbeat Neurological: No Reproductive Disorders: No Sexually Transmitted Disease: No HIV/AIDS: No Genitourinary: No Gastrointestinal: No Musculoskeletal: Yes (BACK SURGERY) Chronic Back Pain Endocrine: No HEENT: No Hearing Impairment: Denies Cancer: No Psychosocial: Yes Anxiety, Bipolar, Depression Integumentary: Yes (KELOIDS--S/P REMOVAL) Blood Disorders: No Family Medical History Patient reports no known family medical history. Other Conditions/Hx Physical Exam Vital Signs Vital Signs - First Documented 09/22/19 12:44 Temp 36.8 Pulse 104 Resp 18 B/P (MAP) 109/93 (98) Pulse Ox 96 O2 Delivery Room Air Capillary Refill : Height/Weight/BMI Height: 6'3.00" Weight: 265lbs. oz. 120.238227sw; 32.72 BMI Method:Stated General Appearance: WD/WN, no apparent distress HEENT: PERRL/EOMI, normal ENT inspection Respiratory: no respiratory distress, no accessory muscle use Gastrointestinal: soft, abnormal bowel sounds (hypoactive bowel sounds), tenderness, other (midline abdominal incision clean dry and intact covered with Island dressing) Extremities: normal range of motion, non-tender Neurologic/Psychiatric: alert, normal mood/affect, oriented x 3 Skin: normal color, warm/dry Progress/Results/Core Measures Results/Orders Lab Results Laboratory Tests Test 09/22/19 12:54 09/22/19 13:40 Range/Units White Blood Count 9.9 4.3-11.0 10^3/uL Red Blood Count 4.34 L 4.35-5.85 10^6/uL Hemoglobin 12.0 #L 13.3-17.7 G/DL Hematocrit 36 L 40-54 % Mean Corpuscular Volume 82 80-99 FL Mean Corpuscular Hemoglobin 28 25-34 PG Mean Corpuscular Hemoglobin Concent 34 32-36 G/DL Red Cell Distribution Width 14.9 H 10.0-14.5 % Platelet Count 489 H 130-400 10^3/uL Mean Platelet Volume 9.9 7.4-10.4 FL Neutrophils (%) (Auto) 59 42-75 % Lymphocytes (%) (Auto) 33 12-44 % Monocytes (%) (Auto) 7 0-12 % Eosinophils (%) (Auto) 1 0-10 % Basophils (%) (Auto) 0 0-10 % Neutrophils # (Auto) 5.8 1.8-7.8 X 10^3 Lymphocytes # (Auto) 3.2 1.0-4.0 X 10^3 Monocytes # (Auto) 0.7 0.0-1.0 X 10^3 Eosinophils # (Auto) 0.1 0.0-0.3 10^3/uL Basophils # (Auto) 0.0 0.0-0.1 10^3/uL Sodium Level 143 135-145 MMOL/L Potassium Level 4.1 3.6-5.0 MMOL/L Chloride Level 109 H 98-107 MMOL/L Carbon Dioxide Level 20 L 21-32 MMOL/L Anion Gap 14 5-14 MMOL/L Blood Urea Nitrogen 8 7-18 MG/DL Creatinine 1.47 H 0.60-1.30 MG/DL Estimat Glomerular Filtration Rate 60 BUN/Creatinine Ratio 5 Glucose Level 127 H 70-105 MG/DL Calcium Level 8.8 8.5-10.1 MG/DL Corrected Calcium 9.3 8.5-10.1 MG/DL Total Bilirubin 0.4 0.1-1.0 MG/DL Aspartate Amino Transf (AST/SGOT) 16 5-34 U/L Alanine Aminotransferase (ALT/SGPT) 13 0-55 U/L Alkaline Phosphatase 82 40-136 U/L Total Protein 7.3 6.4-8.2 GM/DL Albumin 3.4 3.2-4.5 GM/DL Urine Color YELLOW Urine Clarity CLEAR Urine pH 6.5 5-9 Urine Specific [place] 1.010 L 1.016-1.022 Urine Protein NEGATIVE NEGATIVE Urine Glucose (UA) NEGATIVE NEGATIVE Urine Ketones NEGATIVE NEGATIVE Urine Nitrite NEGATIVE NEGATIVE Urine Bilirubin NEGATIVE NEGATIVE Urine Urobilinogen 1.0 < = 1.0 MG/DL Urine Leukocyte Esterase NEGATIVE NEGATIVE Urine RBC (Auto) NEGATIVE NEGATIVE Urine RBC RARE /HPF Urine WBC 5-10 H /HPF Urine Squamous Epithelial Cells 2-5 /HPF Urine Crystals NONE /LPF Urine Bacteria TRACE /HPF Urine Casts NONE /LPF Urine Mucus SMALL H /LPF Urine Culture Indicated YES Urine Opiates Screen POSITIVE H NEGATIVE Urine Oxycodone Screen NEGATIVE NEGATIVE Urine Methadone Screen NEGATIVE NEGATIVE Urine Propoxyphene Screen NEGATIVE NEGATIVE Urine Barbiturates Screen NEGATIVE NEGATIVE Ur Tricyclic Antidepressants Screen POSITIVE H NEGATIVE Urine Phencyclidine Screen NEGATIVE NEGATIVE Urine Amphetamines Screen NEGATIVE NEGATIVE Urine Methamphetamines Screen NEGATIVE NEGATIVE Urine Benzodiazepines Screen NEGATIVE NEGATIVE Urine Cocaine Screen NEGATIVE NEGATIVE Urine Cannabinoids Screen NEGATIVE NEGATIVE My Orders Orders - MICKY LÓPEZ APRN Cbc With Automated Diff (09/22/19 12:46) Comprehensive Metabolic Panel (09/22/19 12:46) Ua Culture If Indicated (09/22/19 12:46) Ed Iv/Invasive Line Start (09/22/19 12:46) Ct Abdomen/Pelvis W (09/22/19 12:46) Lorazepam Injection (Ativan Injection) (09/22/19 13:00) Lorazepam Injection (Ativan Injection) (09/22/19 13:00) Drug Screen Stat (Urine) (09/22/19 12:55) Morphine Injection (Morphine Injection (09/22/19 13:16) Lactated Ringers (Lr 1000 Ml Iv Solution (09/22/19 13:45) Urine Culture (09/22/19 13:40) Iohexol Injection (Omnipaque 350 Mg/Ml 1 (09/22/19 14:45) Received Contrast (Hold Metformin- Contr (09/22/19 14:45) Ns (Ivpb) (Sodium Chloride 0.9% Ivpb Bag (09/22/19 14:45) Diatrizoate Meglum/Sodium 37% (Gastrogra (09/22/19 14:45) Medications Given in ED Current Medications Medications Dose Ordered Sig/Bam Route Start Time Stop Time Status Last Admin Dose Admin Diatrizoate Meglum/ Diatrizoate Sod 30 ml ONCE ONCE PO 09/22/19 14:45 09/22/19 14:46 DC 09/22/19 14:52 30 ML Iohexol 100 ml ONCE ONCE IV 09/22/19 14:45 09/22/19 14:46 DC 09/22/19 14:52 100 ML Sodium Chloride 100 ml ONCE ONCE IV 09/22/19 14:45 09/22/19 14:46 DC 09/22/19 14:52 80 ML Vital Signs/I&O 09/22/19 12:44 Temp 36.8 Pulse 104 Resp 18 B/P (MAP) 109/93 (98) Pulse Ox 96 O2 Delivery Room Air Diagnostic Imaging Diagonstic Imaging: CT Comments NAME: ARAU[facility]OFERDINAND JR [facility] REC#: [id number] PT STATUS: REG ER : 1960 PHYSICIAN: MICKY LÓPEZ APRN ADMIT DATE: 09/22/19/ER Draft Date of Exam:09/22/19 CT ABDOMEN/PELVIS W PROCEDURE: CT abdomen and pelvis with contrast. TECHNIQUE: Multiple contiguous axial images were obtained through the abdomen and pelvis after administration of intravenous contrast. Auto Exposure Controls were utilized during the CT exam to meet ALARA standards for radiation dose reduction. INDICATION: Left-sided abdominal pain. Appendectomy last week. COMPARISON: 09/13/2019. FINDINGS: The lung bases demonstrate dependent atelectasis. The heart is normal in size. There is no pericardial effusion. The liver demonstrates no focal lesions. The spleen appears normal. The pancreas is normal. The adrenal glands appear normal. The kidneys are unremarkable. The bowel loops are nondistended without obstruction seen. Portions of the descending and sigmoid colon are decompressed. Skin nichelle are seen in the midline anteriorly with mild associated edema. No fluid collections are seen. No free fluid or free air is seen. Anastomotic sutures are seen in the small bowel in the right abdomen. The appendix is absent. There is moderate gastric distention. There are few mildly prominent loops of small bowel, which remain less than 3 cm in diameter. IMPRESSION: 1. Few mildly prominent loops of small bowel without obstruction seen. This may represent mild ileus. 2. Moderate gastric distention, with fluid and ingested material. 3. Postsurgical changes seen in the anterior abdomen. No fluid collection, free fluid or free air seen. Dictated on workstation # [id number] Dict: 09/22/19 1459 Trans: 09/22/19 1510 [facility] [id number] Interpreted by: ZAID JASSO MD Electronically signed by: Departure Impression Primary Impression: Postoperative abdominal pain Additional Impression: mild ileus Disposition: 01 HOME, SELF-CARE Condition: Stable Departure-Patient Inst. Decision time for Depature: 15:16 Referrals: [facility] [place] Primary Care Physician CARLOS A PARIS (Family) Primary Care Physician Patient Instructions: Postoperative Ileus, Postoperative Pain (DC) Add. Discharge Instructions: 1. Clear liquids for the next 24 hours. Follow-up with Dr. Mcgrath. Return to ER for any concerns. Copy Copies To 1: NKECHI MCGRATH PETER J APRN Sep 22, 2019 12:55
[2019-09-22] MEDS ORDERED: LORazepam INJ 2 MG/ML (ATIVAN) VIAL IVP PRN ×2 (13:00)
[2019-09-22 13:02] LABS: BASOPHILS % (AUTO) 0 % (0-10); EOSINOPHILS # (AUTO) 0.1 10^3/uL (0.0-0.3); EOSINOPHILS % (AUTO) 1 % (0-10); HEMATOCRIT 36 % (40-54); LYMPHOCYTES # (AUTO) 3.2 X 10^3 (1.0-4.0); LYMPHOCYTES % (AUTO) 33 % (12-44); MEAN CORPUSCULAR HEMOGLOBIN 28 PG (25-34); MEAN CORPUSCULAR HGB CONC 34 G/DL (32-36); MEAN CORPUSCULAR VOLUME 82 FL (80-99); MEAN PLATELET VOLUME 9.9 FL (7.4-10.4); MONOCYTES # (AUTO) 0.7 X 10^3 (0.0-1.0); MONOCYTES % (AUTO) 7 % (0-12); NEUTROPHILS # (AUTO) 5.8 X 10^3 (1.8-7.8); NEUTROPHILS % (AUTO) 59 % (42-75); PLATELET COUNT 489 10^3/uL (130-400); RED CELL DISTRIBUTION WIDTH 14.9 % (10.0-14.5); WHITE BLOOD COUNT 9.9 10^3/uL (4.3-11.0)
--- NOTE | 2019-09-22 13:06 | NUR ---
PATIENT DRANK ALL OF ORAL CONTRAST
[2019-09-22 13:11] LABS: ALBUMIN 3.4 GM/DL (3.2-4.5); POTASSIUM 4.1 MMOL/L (3.6-5.0)
[2019-09-22 13:12] LABS: CALCIUM 8.8 MG/DL (8.5-10.1)
[2019-09-22 13:13] LABS: TOTAL PROTEIN 7.3 GM/DL (6.4-8.2)
[2019-09-22 13:15] LABS: BILIRUBIN,TOTAL 0.4 MG/DL (0.1-1.0)
[2019-09-22] MEDS ORDERED: morphine INJ 10 MG/ML 1ML (SYR OR VIAL) IVP STA (13:16)
[2019-09-22 13:17] LABS: CREATININE SERUM 1.47 MG/DL (0.60-1.30)
[2019-09-22 13:45] LABS: BILIRUBIN,URINE NEGATIVE (NEGATIVE); CLARITY,URINE CLEAR; COLOR,URINE YELLOW; GLUCOSE, URINE (UA) NEGATIVE (NEGATIVE); KETONES,URINE NEGATIVE (NEGATIVE); LEUKOCYTE ESTERASE ,URINE NEGATIVE (NEGATIVE); NITRITE,URINE NEGATIVE (NEGATIVE); PH,URINE 6.5 (5-9); PROTEIN,URINE NEGATIVE (NEGATIVE)
[2019-09-22] MEDS ORDERED: LACTATED RINGERS 1,000 ML IV SCH (13:45)
[2019-09-22 13:52] LABS: BACTERIA,URINE TRACE /HPF; RBC,URINE RARE /HPF
[2019-09-22 13:56] LABS: AMPHETAMINE SCREEN, URINE NEGATIVE (NEGATIVE); BARBITURATE SCREEN URINE NEGATIVE (NEGATIVE); BENZODIAZEPINES SCREEN URINE NEGATIVE (NEGATIVE); CANNABINOID SCREEN, URINE NEGATIVE (NEGATIVE); COCAINE SCREEN URINE NEGATIVE (NEGATIVE); METHADONE STAT NEGATIVE (NEGATIVE); METHAMPHETAMINE SCREEN URINE S NEGATIVE (NEGATIVE); OPIATE SCREEN URINE POSITIVE (NEGATIVE); OXYCODONE STAT NEGATIVE (NEGATIVE); PROPOXYPHENE STAT NEGATIVE (NEGATIVE); TRICYCLIC ANTIDEPRESSANTS SCRE POSITIVE (NEGATIVE)
[2019-09-22] MEDS ORDERED: DIATRIZOATE MEGLUM/SODIUM 37% 120 ML (GASTROGRAFIN) PO ONE (14:45)
[2019-09-22] MEDS ORDERED: IOHEXOL 350 MG/ML 100 ML (OMNIPAQUE 350) VIAL IV ONE (14:45)
[2019-09-22] MEDS ORDERED: NS 100 ML (IVPB) BAG IV ONE (14:45)
[2019-09-22] MEDS ORDERED: HOLD METFORMIN - RECEIVED CONTRAST 20 ML VIAL IV SCH (14:45)
--- NOTE | 2019-09-22 15:12 | Diagnostic Imaging Report ---
PROCEDURE: CT abdomen and pelvis with contrast. TECHNIQUE: Multiple contiguous axial images were obtained through the abdomen and pelvis after administration of intravenous contrast. Auto Exposure Controls were utilized during the CT exam to meet ALARA standards for radiation dose reduction. INDICATION: Left-sided abdominal pain. Appendectomy last week. COMPARISON: 09/13/2019. FINDINGS: The lung bases demonstrate dependent atelectasis. The heart is normal in size. There is no pericardial effusion. The liver demonstrates no focal lesions. The spleen appears normal. The pancreas is normal. The adrenal glands appear normal. The kidneys are unremarkable. The bowel loops are nondistended without obstruction seen. Portions of the descending and sigmoid colon are decompressed. Skin nichelle are seen in the midline anteriorly with mild associated edema. No fluid collections are seen. No free fluid or free air is seen. Anastomotic sutures are seen in the small bowel in the right abdomen. The appendix is absent. There is moderate gastric distention. There are few mildly prominent loops of small bowel, which remain less than 3 cm in diameter. IMPRESSION: 1. Few mildly prominent loops of small bowel without obstruction seen. This may represent mild ileus. 2. Moderate gastric distention, with fluid and ingested material. 3. Postsurgical changes seen in the anterior abdomen. No fluid collection, free fluid or free air seen. Dictated by: Dictated on workstation # [id number]
[2019-09-22 15:27] VITALS: BP 143/94
== END 2019-09-22 15:31 | disposition home or self-care (01) ==
LOC: EDUNIT# 12:44 → ER 12:45
DX: G89.18 Other acute postprocedural pain (principal); K56.7 Ileus, unspecified; F41.9 Anxiety disorder, unspecified; F31.9 Bipolar disorder, unspecified
CPT/HCPCS: 36415; 74177; 80053; 80306; 81000; 85025; 87088

== ENCOUNTER 2020-02-27 10:21 | Emergency (ER) | payer MEDICAID ==
[~2020-02-27] VITALS: Ht 190 cm; Wt 117.0 kg
[~2020-02-27 10:21] MED LIST changes: +HYDR-3817 PO; -HYDR-4342 PO
[2020-02-27 10:29] VITALS: BP 113/76
--- NOTE | 2020-02-27 10:35 | ED General ---
General Chief Complaint: General Problems/Pain Stated Complaint: LIGHT HEADED Source of Information: Patient Exam Limitations: No Limitations History of Present Illness Date Seen by Provider: Feb 27, 2020 Time Seen by Provider: 10:30 Initial Comments 59-year-old male presents for general medical clearance. Patient reports that a couple weeks ago when he stood up he got a little lightheaded but that is resolved and he has no symptoms. Patient presents today because he states and people were standing next to him they state he feels like he is hot. Patient himself does not feel febrile has no cough, nausea, vomiting, shortness of breath. Patient reports no past history of IV drug use. Reports that he used drugs, smoked and drank but quit couple years ago. He denies any known high-risk sexual contact. Patient states occasionally gets some night sweats. Patient does have an appointment a week from now with his primary care provider for a yearly exam, ED check, and just general medical exam. Patient's has no reported symptoms upon this visit. Allergies and Home Medications Allergies Coded Allergies: No Known Drug Allergies (Unverified , 07/29/09) Home Medications Buspirone HCl 15 Mg Tablet, 15 MG PO BID, (Reported) Hydrocodone/Acetaminophen 1 Each Tablet, 1 EACH PO Q4H Prescribed by: BINA BUTTS on 09/17/19 1019 Quetiapine Fumarate 200 Mg Tablet, 400 MG PO HS, (Reported) TAKES 2 (200MG) TABS TO EQUAL 400MG AT BEDTIME Patient Home Medication List Home Medication List Reviewed: Yes Review of Systems Review of Systems Constitutional: see HPI, chills EENTM: no symptoms reported Respiratory: no symptoms reported Cardiovascular: no symptoms reported Gastrointestinal: no symptoms reported Genitourinary: no symptoms reported Musculoskeletal: no symptoms reported Skin: no symptoms reported Psychiatric/Neurological: No Symptoms Reported Past Pfmztgj-Mfpzzl-Xdyjjt Hx Past Med/Social Hx: Reviewed Nursing Past Med/Soc Hx Patient Social History Drug of Choice: THC, UDS+ FOR AMPHETAMINES/METH AMPHETAMINES 08/22/19 Type Used: Cigarettes Immunizations Up To Date Tetanus Booster (TDap): Unknown PED Vaccines UTD: Yes Seasonal Allergies Seasonal Allergies: No Past Medical History Surgeries: Yes (KELOID REMOVAL; BACK SURGERY) Abdominal, Orthopedic Respiratory: No Cardiac: Yes High Cholesterol, Irregular Heartbeat Neurological: No Reproductive Disorders: No Sexually Transmitted Disease: No HIV/AIDS: No Genitourinary: No Gastrointestinal: No Musculoskeletal: Yes (BACK SURGERY) Chronic Back Pain Endocrine: No HEENT: No Hearing Impairment: Denies Cancer: No Psychosocial: Yes Anxiety, Bipolar, Depression Integumentary: Yes (KELOIDS--S/P REMOVAL) Blood Disorders: No Family Medical History Patient reports no known family medical history. Other Conditions/Hx Physical Exam Vital Signs Vital Signs - First Documented 02/27/20 10:29 Temp 36.6 Pulse 107 Resp 16 B/P (MAP) 113/76 (88) Pulse Ox 97 O2 Delivery Room Air Capillary Refill : Height, Weight, BMI Height: 6'3.00" Weight: 265lbs. oz. 120.992278ov; 36.00 BMI Method:Stated General Appearance: No Apparent Distress, WD/WN HEENT: PERRL/EOMI Neck: Normal Inspection, Non Tender, Supple Respiratory: Lungs Clear, Normal Breath Sounds Cardiovascular: Regular Rate, Rhythm, Normal Peripheral Pulses Gastrointestinal: Non Tender, Soft Extremity: Normal Capillary Refill, Normal Inspection, Normal Range of Motion Neurologic/Psychiatric: Alert, Oriented x3, No Motor/Sensory Deficits, Normal Mood/Affect, reformatory attendant II-XII Norm as Tested Skin: Normal Color, Warm/Dry Progress/Results/Core Measures Suspected Sepsis SIRS Temperature: Pulse: Respiratory Rate: Blood Pressure / Mean: Results/Orders Vital Signs/I&O 02/27/20 10:29 Temp 36.6 Pulse 107 Resp 16 B/P (MAP) 113/76 (88) Pulse Ox 97 O2 Delivery Room Air Capillary Refill : Progress Note : Time: 10:41 Progress Note Patient with no symptoms at this time. I believe patient was here mainly for some reassurance. He was offered some general labs and an STD check. He deferred knowing he has an appointment with his primary care next week that he states he would prefer to have them done by his primary care provider. Patient has no acute physical findings on a limited ER exam. Patient is comfortable after some reassurance and is ready be discharged and will just follow up with his primary care provider. Departure Impression Primary Impression: General medical exam Disposition: 01 HOME, SELF-CARE Condition: Stable Departure-Patient Inst. Referrals: [facility]/ (PCP) Primary Care Physician CARLOS A PARIS (Family) Primary Care Physician Patient Instructions: Yearly Physical for Adults Add. Discharge Instructions: Keep your appointment with her primary care provider for next week for year yearly physical and exam Emergency department focuses on treating and ruling out life-threatening diseases. Whenever possible, a diagnosis is given. However, most patients are given an impression based on their history, physical exam, and workup during your brief time in the ER. Information about probable diagnosis and other educational material has been provided. Please take the time to read and understand this information. It is very important that you follow up with a physician as discussed during the visit today. Failure to adhere to your follow-up instructions may lead to severe disability, injury, or so please make sure to keep your appointments or obtain one as requested. Please keep in mind the emergency department is not designed to your primary care or "family doctor" and nonurgent issues are best evaluated by an outpatient physician All discharge instructions reviewed with patient and/or family. Voiced understanding. IVETTE PARTIDA DO Feb 27, 2020 10:35
== END 2020-02-27 10:43 | disposition home or self-care (01) ==
LOC: EDUNIT# 10:21 → ER 10:22
DX: Z00.00 Encounter for general adult medical examination without abnormal findings (principal); F41.9 Anxiety disorder, unspecified; F31.9 Bipolar disorder, unspecified; G89.29 Other chronic pain; M54.9 Dorsalgia, unspecified; Z79.891 Long term (current) use of opiate analgesic
CPT/HCPCS: 99281

== ENCOUNTER 2020-09-14 13:26 | Emergency (ER) | payer MEDICAID ==
[~2020-09-14] VITALS: Ht 187 cm; Wt 91.0 kg
[2020-09-14] MEDS ORDERED: NS IV 1000 ML 1,000 ML IV SCH (13:45)
[2020-09-14] MEDS ORDERED: HOLD METFORMIN - RECEIVED CONTRAST 20 ML VIAL IV SCH (13:45)
[2020-09-14] MEDS ORDERED: NS 100 ML (IVPB) BAG IV ONE (13:45)
[2020-09-14] MEDS ORDERED: IOHEXOL 350 MG/ML 100 ML (OMNIPAQUE 350) VIAL IV ONE (13:45)
[2020-09-14 13:47] LABS: BILIRUBIN,URINE NEGATIVE (NEGATIVE); CLARITY,URINE SL CLOUDY; COLOR,URINE YELLOW; GLUCOSE, URINE (UA) NEGATIVE (NEGATIVE); KETONES,URINE TRACE (NEGATIVE); LEUKOCYTE ESTERASE ,URINE NEGATIVE (NEGATIVE); NITRITE,URINE NEGATIVE (NEGATIVE); PH,URINE 6.5 (5-9); PROTEIN,URINE 1+ (NEGATIVE)
[2020-09-14 13:54] LABS: HEMOGLOBIN 13.1 g/dL (13.3-17.7); MEAN PLATELET VOLUME 10.7 fL (9.0-12.2); WHITE BLOOD COUNT 6.6 10^3/uL (4.3-11.0)
[2020-09-14 14:01] LABS: ALBUMIN 3.6 GM/DL (3.2-4.5); CHLORIDE 108 MMOL/L (98-107); POTASSIUM 3.9 MMOL/L (3.6-5.0); SODIUM 143 MMOL/L (135-145)
[2020-09-14 14:02] LABS: CALCIUM 8.2 MG/DL (8.5-10.1)
[2020-09-14 14:02] LABS: BACTERIA,URINE NEGATIVE /HPF; SQUAMOUS EPITHELIAL CELL,UR 0-2 /HPF
[2020-09-14 14:04] LABS: GLUCOSE 125 MG/DL (70-105); TOTAL PROTEIN 6.5 GM/DL (6.4-8.2)
[2020-09-14 14:05] LABS: BILIRUBIN,TOTAL 0.8 MG/DL (0.1-1.0); CARBON DIOXIDE 22 MMOL/L (21-32)
[2020-09-14 14:07] LABS: ALKALINE PHOSPHATASE 96 U/L (40-136)
[2020-09-14 14:08] LABS: CREATININE SERUM 1.28 MG/DL (0.60-1.30); GFR ESTIMATED > 60
[2020-09-14 14:09] LABS: BILIRUBIN,DIRECT 0.3 MG/DL (0.0-0.3); BILIRUBIN,INDIRECT 0.5 MG/DL; BUN/CREATININE RATIO 9
[2020-09-14 14:10] LABS: ALANINE AMINOTRANSFERASE 21 U/L (0-55)
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
[2020-09-14 14:52] LABS: AMPHETAMINE SCREEN, URINE NEGATIVE (NEGATIVE); BARBITURATE SCREEN URINE NEGATIVE (NEGATIVE); BENZODIAZEPINES SCREEN URINE NEGATIVE (NEGATIVE); CANNABINOID SCREEN, URINE POSITIVE (NEGATIVE); COCAINE SCREEN URINE NEGATIVE (NEGATIVE); METHADONE STAT NEGATIVE (NEGATIVE); METHAMPHETAMINE SCREEN URINE S NEGATIVE (NEGATIVE); OPIATE SCREEN URINE NEGATIVE (NEGATIVE); OXYCODONE STAT NEGATIVE (NEGATIVE); PROPOXYPHENE STAT NEGATIVE (NEGATIVE); TRICYCLIC ANTIDEPRESSANTS SCRE POSITIVE (NEGATIVE)
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
[2020-09-14 18:05] VITALS: BP 170/88
== END 2020-09-14 18:05 | disposition other institution (70) ==
LOC: EDUNIT# 13:29 → MERGE 13:32 → EDBD 13:32 → ER 13:32 → EDAGE 13:32 → ER 18:05
DX: S22.32XA Fracture of one rib, left side, initial encounter for closed fracture (principal); S06.6X1A Traumatic subarachnoid hemorrhage with loss of consciousness of 30 minutes or less, initial encounter; S01.312A Laceration without foreign body of left ear, initial encounter; S27.0XXA Traumatic pneumothorax, initial encounter; S80.211A Abrasion, right knee, initial encounter; S80.212A Abrasion, left knee, initial encounter; S80.812A Abrasion, left lower leg, initial encounter; S90.415A Abrasion, left lesser toe(s), initial encounter; R40.2120 Coma scale, eyes open, to pain, unspecified time; R40.2240 Coma scale, best verbal response, confused conversation, unspecified time; R40.2360 Coma scale, best motor response, obeys commands, unspecified time; F17.210 Nicotine dependence, cigarettes, uncomplicated; V47.5XXA Car driver injured in collision with fixed or stationary object in traffic accident, initial encounter
CPT/HCPCS: 36415; 51702; 70450; 71045; 71260; 72125; 72170; 74177; 80048; 80076; 80306; 80320; 81000; 85027; 86850; 86900; 86901; 93005; 93041

== ENCOUNTER 2020-09-29 10:40 | Emergency (ER) | payer MEDICAID ==
[~2020-09-29] VITALS: Ht 190.5 cm; Wt 95.3 kg
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
[2020-09-29] MEDS ORDERED: ONDANSETRON 4 MG (ZOFRAN) ORAL DISSOLVE TAB SL STA (13:57)
[2020-09-29] MEDS ORDERED: ANTACID SUSP 30 ML UDC (MYLANTA) PO ONE (14:00)
[2020-09-29] MEDS ORDERED: LIDOCAINE 2% VISCOUS 15 ML UDC PO ONE (14:00)
[2020-09-29] MEDS ORDERED: fentaNYL INJ 100 MCG/2 ML AMP IVP ONE (14:30)
[2020-09-29 14:52] LABS: BILIRUBIN,URINE NEGATIVE (NEGATIVE); CLARITY,URINE CLEAR; COLOR,URINE YELLOW; GLUCOSE, URINE (UA) NEGATIVE (NEGATIVE); KETONES,URINE NEGATIVE (NEGATIVE); LEUKOCYTE ESTERASE ,URINE 1+ (NEGATIVE); NITRITE,URINE NEGATIVE (NEGATIVE); PROTEIN,URINE NEGATIVE (NEGATIVE)
[2020-09-29 14:53] LABS: BASOPHILS % (AUTO) 0 % (0-10); EOSINOPHILS # (AUTO) 0.2 10^3/uL (0.0-0.3); EOSINOPHILS % (AUTO) 2 % (0-10); HEMATOCRIT 46 % (40-54); HEMOGLOBIN 14.3 g/dL (13.3-17.7); LYMPHOCYTES % (AUTO) 32 % (12-44); MEAN CORPUSCULAR HEMOGLOBIN 28 pg (25-34); MEAN CORPUSCULAR HGB CONC 31 g/dL (32-36); MEAN CORPUSCULAR VOLUME 90 fL (80-99); MEAN PLATELET VOLUME 10.1 fL (9.0-12.2); MONOCYTES # (AUTO) 0.5 10^3/uL (0.0-1.0); MONOCYTES % (AUTO) 5 % (0-12); NEUTROPHILS # (AUTO) 5.7 10^3/uL (1.8-7.8); NEUTROPHILS % (AUTO) 60 % (42-75); PLATELET COUNT 348 10^3/uL (130-400); WHITE BLOOD COUNT 9.6 10^3/uL (4.3-11.0)
[2020-09-29 14:57] LABS: ALBUMIN 3.9 GM/DL (3.2-4.5); CHLORIDE 107 MMOL/L (98-107); POTASSIUM 5.9 MMOL/L (3.6-5.0); SODIUM 137 MMOL/L (135-145)
[2020-09-29 14:59] LABS: GLUCOSE 96 MG/DL (70-105)
[2020-09-29 15:00] LABS: CARBON DIOXIDE 19 MMOL/L (21-32)
[2020-09-29 15:01] LABS: BILIRUBIN,TOTAL 0.5 MG/DL (0.1-1.0)
[2020-09-29 15:03] LABS: ALKALINE PHOSPHATASE 116 U/L (40-136); CREATININE SERUM 1.24 MG/DL (0.60-1.30); GFR ESTIMATED > 60
[2020-09-29 15:04] LABS: BUN/CREATININE RATIO 15
[2020-09-29 15:06] LABS: ALANINE AMINOTRANSFERASE 21 U/L (0-55); LIPASE 39 U/L (8-78)
[2020-09-29 15:08] LABS: BACTERIA,URINE NEGATIVE /HPF; SQUAMOUS EPITHELIAL CELL,UR RARE /HPF; WBC,URINE 0-2 /HPF
--- NOTE | 2020-09-29 15:12 | Diagnostic Imaging Report ---
Indication: Generalized abdominal pain. Comparison: 09/14/2019. Discussion: Three views of the abdomen were obtained. Mild constipation. No abnormal small bowel loops. No pneumatosis or pneumoperitoneum or portal venous gas. No pathologic calcification or osseous abnormality. The lung bases are unremarkable. Impression: Constipation. Dictated by: Dictated on workstation # [id number]
[2020-09-29] MEDS ORDERED: NS IV 1000 ML 1,000 ML IV SCH (15:15)
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
[2020-09-29] MEDS ORDERED: TRAM-42 PO (15:41)
[2020-09-29] MEDS ORDERED: POLY119P5 PO (15:41)
[2020-09-29 16:18] VITALS: BP 125/79
== END 2020-09-29 16:18 | disposition home or self-care (01) ==
LOC: EDUNIT# 10:40 → ER 10:42
DX: S22.42XA Multiple fractures of ribs, left side, initial encounter for closed fracture (principal); K59.00 Constipation, unspecified; R10.13 Epigastric pain; G89.29 Other chronic pain; M54.9 Dorsalgia, unspecified; F41.9 Anxiety disorder, unspecified; F31.9 Bipolar disorder, unspecified; F17.210 Nicotine dependence, cigarettes, uncomplicated; Z79.891 Long term (current) use of opiate analgesic; Z79.899 Other long term (current) drug therapy; V89.2XXA Person injured in unspecified motor-vehicle accident, traffic, initial encounter
CPT/HCPCS: 36415; 71046; 74019; 80053; 81000; 83690; 85025; 86141

== ENCOUNTER 2020-12-16 09:57 | Emergency (ER) | payer MEDICAID ==
[~2020-12-16] VITALS: Ht 190 cm; Wt 90.7 kg
[~2020-12-16 09:57] MED LIST changes: -CASIRIVIMAB/IMDEVIMAB 1,200 MG in NS (IVPB) 250 ML IV ONE; -EPINEPHrine INJECTION 1 MG/ML AMP IM PRN; -diphenhydrAMINE 50 MG/ML INJ (BENADRYL) IV PRN
--- NOTE | 2020-12-16 10:20 | ED General ---
General Stated Complaint: CHILLS,LOSS OF APPEITTE,COUGH,SOB, Source of Information: Patient Exam Limitations: No Limitations History of Present Illness Date Seen by Provider: Dec 16, 2020 Time Seen by Provider: 10:10 Initial Comments Ferdinand is a 60-year-old male who presents to the emergency department today with a chief complaint of subjective fevers and chills, loss of appetite, has not eaten anything in the last 4 days, nonproductive cough feeling short of breath and diarrhea. Patient had his first mode during a Covid shot on 05 December. He states since that time he has not felt right at all. Patient denies any abdominal pain but states he has not been able to eat and he has lost weight. He denies urinary complaints. No sore throat or congestion but occasional runny nose. No chest pain. No body aches. He is a little lightheaded and dizzy when he stands up and moves around. He states he has been able to drink lots of water. He states he does not have contact with many people but does walk to the store occasionally. All other review of systems reviewed and negative except as stated above. Timing/Duration: 1 Week Severity: Moderate Associated Systoms: Cough, Fever/Chills (Subjective), Loss of Appetite, Malaise, Shortness of Air, Weakness Allergies and Home Medications Allergies Coded Allergies: No Known Drug Allergies (Unverified , 07/29/09) Home Medications Buspirone HCl 15 Mg Tablet, 15 MG PO BID, (Reported) Hydrocodone/Acetaminophen 1 Each Tablet, 1 EACH PO Q4H Prescribed by: BINA BUTTS on 09/17/19 1019 Polyethylene Glycol 3350 119 Gm Powder, 119 GM PO BID PRN for CONSTIPATION-1ST LINE Fill cap to line. Mix in 8-12 oz clear liquid. Prescribed by: MARK BEDOYA on 09/29/20 1541 Quetiapine Fumarate 200 Mg Tablet, 400 MG PO HS, (Reported) TAKES 2 (200MG) TABS TO EQUAL 400MG AT BEDTIME Tramadol HCl 50 Mg Tablet, 50 MG PO Q6H PRN for PAIN-BREAKTHROUGH Prescribed by: MARK BEDOYA on 09/29/20 1542 Patient Home Medication List Home Medication List Reviewed: Yes Review of Systems Review of Systems Constitutional: see HPI, chills, diaphoresis, dizziness, malaise, weight loss EENTM: no symptoms reported Respiratory: cough Cardiovascular: no symptoms reported Gastrointestinal: diarrhea Genitourinary: no symptoms reported Musculoskeletal: joint pain (Right great toe) Skin: no symptoms reported Psychiatric/Neurological: Anxiety All Other Systems Reviewed Negative Unless Noted: Yes Past Dilnqha-Tfkotp-Kwnvnh Hx Immunizations Up To Date Tetanus Booster (TDap): Less than 5yrs PED Vaccines UTD: Yes Seasonal Allergies Seasonal Allergies: No Past Medical History Surgeries: Yes (KELOID REMOVAL; BACK SURGERY) Abdominal, Orthopedic Respiratory: No Cardiac: Yes High Cholesterol, Irregular Heartbeat Neurological: No Reproductive Disorders: No Sexually Transmitted Disease: No HIV/AIDS: No Genitourinary: No Gastrointestinal: No Musculoskeletal: Yes (BACK SURGERY) Chronic Back Pain Endocrine: No HEENT: No Hearing Impairment: Denies Cancer: No Psychosocial: Yes Anxiety, Bipolar, Depression Integumentary: Yes (KELOIDS--S/P REMOVAL) Blood Disorders: No Family Medical History Patient reports no known family medical history. Other Conditions/Hx Physical Exam Vital Signs Vital Signs - First Documented Capillary Refill : Height, Weight, BMI Height: 6'3.00" Weight: 265lbs. oz. 120.987185ep; 26.00 BMI Method:Stated General Appearance: No Apparent Distress, WD/WN, Anxious Eyes: Bilateral Eye Normal Inspection, Bilateral Eye PERRL, Bilateral Eye EOMI HEENT: Other (Dry oral mucosa) Neck: Normal Inspection, Non Tender, Supple Respiratory: Lungs Clear, Normal Breath Sounds, No Accessory Muscle Use, No Respiratory Distress Cardiovascular: Regular Rate, Rhythm, Normal Peripheral Pulses Gastrointestinal: Non Tender, Soft Extremity: Normal Inspection, Normal Range of Motion Neurologic/Psychiatric: Alert, Oriented x3, No Motor/Sensory Deficits, Normal Mood/Affect Skin: Normal Color, Warm/Dry Progress/Results/Core Measures Suspected Sepsis SIRS Temperature: Pulse: Respiratory Rate: Laboratory Tests 12/16/20 10:20: White Blood Count 4.4 Blood Pressure / Mean: Laboratory Tests 12/16/20 10:20: Creatinine 1.51H, Platelet Count 230, Total Bilirubin 1.3H Results/Orders Lab Results Laboratory Tests Test 12/16/20 10:05 12/16/20 10:20 Range/Units SARS-CoV-2 RNA (RT-PCR) Detected H Not Detecte White Blood Count 4.4 4.3-11.0 10^3/uL Red Blood Count 4.67 4.30-5.52 10^6/uL Hemoglobin 13.2 L 13.3-17.7 g/dL Hematocrit 38 L 40-54 % Mean Corpuscular Volume 82 80-99 fL Mean Corpuscular Hemoglobin 28 25-34 pg Mean Corpuscular Hemoglobin Concent 34 32-36 g/dL Red Cell Distribution Width 12.5 10.0-14.5 % Platelet Count 230 130-400 10^3/uL Mean Platelet Volume 11.5 9.0-12.2 fL Immature Granulocyte % (Auto) 2 % Neutrophils (%) (Auto) 57 42-75 % Lymphocytes (%) (Auto) 32 12-44 % Monocytes (%) (Auto) 9 0-12 % Eosinophils (%) (Auto) 1 0-10 % Basophils (%) (Auto) 0 0-10 % Neutrophils # (Auto) 2.5 1.8-7.8 10^3/uL Lymphocytes # (Auto) 1.4 1.0-4.0 10^3/uL Monocytes # (Auto) 0.4 0.0-1.0 10^3/uL Eosinophils # (Auto) 0.0 0.0-0.3 10^3/uL Basophils # (Auto) 0.0 0.0-0.1 10^3/uL Immature Granulocyte # (Auto) 0.1 0.0-0.1 10^3/uL Sodium Level 137 135-145 MMOL/L Potassium Level 3.9 3.6-5.0 MMOL/L Chloride Level 104 98-107 MMOL/L Carbon Dioxide Level 21 21-32 MMOL/L Anion Gap 12 5-14 MMOL/L Blood Urea Nitrogen 19 H 7-18 MG/DL Creatinine 1.51 H 0.60-1.30 MG/DL Estimat Glomerular Filtration Rate 58 BUN/Creatinine Ratio 13 Glucose Level 117 H 70-105 MG/DL Calcium Level 8.7 8.5-10.1 MG/DL Corrected Calcium 9.1 8.5-10.1 MG/DL Total Bilirubin 1.3 H 0.1-1.0 MG/DL Aspartate Amino Transf (AST/SGOT) 48 H 5-34 U/L Alanine Aminotransferase (ALT/SGPT) 33 0-55 U/L Alkaline Phosphatase 71 40-136 U/L C-Reactive Protein High Sensitivity 6.32 H 0.00-0.50 MG/DL Total Protein 7.4 6.4-8.2 GM/DL Albumin 3.5 3.2-4.5 GM/DL My Orders Orders - PARADISE JAMISON MD Covid 19 Inhouse Test (12/16/20 10:16) Cbc With Automated Diff (12/16/20 10:16) Comprehensive Metabolic Panel (12/16/20 10:16) Hs C Reactive Protein (12/16/20 10:16) Chest 1 View, Ap/Pa Only (12/16/20 10:16) Ns Iv 1000 Ml (Sodium Chloride 0.9%) (12/16/20 10:30) Vital Signs/I&O 12/16/20 12/16/20 10:00 10:00 Temp 35.8 Pulse 93 Resp 16 B/P (MAP) 119/75 (90) Pulse Ox 97 O2 Delivery Room Air Room Air Capillary Refill : Progress Note : Time: 11:14 Progress Note Patient's Covid test is positive. Discussed Regeneron infusion with the patient including risks and benefits of the medication. I discussed with him the risk of worsening if not getting the monoclonal antibody infusion. Risk of allergic reaction and or worsening Covid infection in spite of the infusion. Patient verbalizes understanding and wishes to go ahead and be set up for the infusion but will decide when he gets home whether or not he wants to proceed. I advised the patient that when they called to schedule it he could state that he does not want it. The patient is comfortable with this plan of care. Order will be processed. At this time the patient's oxygen saturations are greater than 92% on room air. He is not tachypneic. He is not febrile here in the department. Nontoxic-appearing. Chest x-ray is still pending. Patient does have evidence of a little acute kidney injury with a serum creatinine of 1.5. He is treated in the emergency department with a liter of IV fluids. He is strongly encouraged to continue drinking fluids. Strongly encouraged to quit smoking. Diagnostic Imaging Diagonstic Imaging: Xray Plain Films/CT/US/NM/MRI: chest Comments NAME: FERDINAND ARAUJO JR MED REC#: [id number] PT STATUS: REG ER : 1960 PHYSICIAN: PARADISE JAMISON MD ADMIT DATE: 12/16/20/ER Draft Date of Exam:12/16/20 CHEST 1 VIEW, AP/PA ONLY INDICATION: Fever and cough. Frontal chest obtained at 11:41 a.m. and compared to 09/14/2020. FINDINGS: Heart and mediastinal silhouette are normal in appearance. There are new patchy infiltrates in the mid to lower lung bruce on both sides, suspicious for atypical pneumonia. There is no pneumothorax or pleural fluid. IMPRESSION: New patchy bilateral infiltrates are present in the mid to lower lung bruce, suspicious for atypical pneumonia. Follow-up is recommended. Dictated on workstation # [id number] Dict: 12/16/20 1207 Trans: 12/16/20 1209 [id number] Interpreted by: ALDA LANDRY MD Electronically signed by: Departure Impression Primary Impression: COVID-19 Additional Impression: Pneumonia due to COVID-19 virus Disposition: 01 HOME, SELF-CARE Condition: Stable Departure-Patient Inst. Decision time for Depature: 11:16 Referrals: [facility] (PCP/Family) Primary Care Physician Patient Instructions: COVID-19 ED Add. Discharge Instructions: Drink plenty of fluids to stay well-hydrated. While you are sick with Covid you will need to drink extra water/fluids. Alternate Tylenol and ibuprofen as needed for body aches, feelings of fevers and chills. You should really try and quit smoking while you are sick. We have placed the order for the antibody infusion to help treat your Covid. The pharmacy will call you to schedule you a time for the infusion. Come back to the emergency department for any increased or worsening symptoms especially with worsening shortness of breath cough or other emergent concerns. PARADISE JAMISON MD Dec 16, 2020 10:20
[2020-12-16] MEDS ORDERED: NS IV 1000 ML 1,000 ML IV SCH (10:30)
[2020-12-16 10:33] LABS: BASOPHILS % (AUTO) 0 % (0-10); EOSINOPHILS % (AUTO) 1 % (0-10); HEMATOCRIT 38 % (40-54); HEMOGLOBIN 13.2 g/dL (13.3-17.7); LYMPHOCYTES # (AUTO) 1.4 10^3/uL (1.0-4.0); LYMPHOCYTES % (AUTO) 32 % (12-44); MEAN CORPUSCULAR HEMOGLOBIN 28 pg (25-34); MEAN CORPUSCULAR HGB CONC 34 g/dL (32-36); MEAN CORPUSCULAR VOLUME 82 fL (80-99); MEAN PLATELET VOLUME 11.5 fL (9.0-12.2); MONOCYTES # (AUTO) 0.4 10^3/uL (0.0-1.0); MONOCYTES % (AUTO) 9 % (0-12); NEUTROPHILS # (AUTO) 2.5 10^3/uL (1.8-7.8); NEUTROPHILS % (AUTO) 57 % (42-75); PLATELET COUNT 230 10^3/uL (130-400); WHITE BLOOD COUNT 4.4 10^3/uL (4.3-11.0)
[2020-12-16 10:49] LABS: ALBUMIN 3.5 GM/DL (3.2-4.5); POTASSIUM 3.9 MMOL/L (3.6-5.0)
[2020-12-16 10:50] LABS: CALCIUM 8.7 MG/DL (8.5-10.1)
[2020-12-16 10:51] LABS: TOTAL PROTEIN 7.4 GM/DL (6.4-8.2)
[2020-12-16 10:53] LABS: BILIRUBIN,TOTAL 1.3 MG/DL (0.1-1.0)
[2020-12-16 10:55] LABS: CREATININE SERUM 1.51 MG/DL (0.60-1.30)
--- NOTE | 2020-12-16 12:10 | Diagnostic Imaging Report ---
INDICATION: Fever and cough. Frontal chest obtained at 11:41 a.m. and compared to 09/14/2020. FINDINGS: Heart and mediastinal silhouette are normal in appearance. There are new patchy infiltrates in the mid to lower lung bruce on both sides, suspicious for atypical pneumonia. There is no pneumothorax or pleural fluid. IMPRESSION: New patchy bilateral infiltrates are present in the mid to lower lung bruce, suspicious for atypical pneumonia. Follow-up is recommended. Dictated by: Dictated on workstation # [id number]
[2020-12-16 12:22] VITALS: BP 131/73
== END 2020-12-16 12:32 | disposition home or self-care (01) ==
LOC: EDUNIT# 09:57 → ER 09:59
DX: U07.1 COVID-19 (principal); J12.82 Pneumonia due to coronavirus disease 2019; F41.9 Anxiety disorder, unspecified; F31.9 Bipolar disorder, unspecified; G89.29 Other chronic pain; M54.9 Dorsalgia, unspecified; Z79.891 Long term (current) use of opiate analgesic; Z79.899 Other long term (current) drug therapy
CPT/HCPCS: 36415; 71045; 80053; 85025; 86141; 87636

== ENCOUNTER → 2020-12-16 | Outpatient (CLI) | payer MEDICAID ==
[~2020-12-16] MED LIST changes: +CASIRIVIMAB/IMDEVIMAB 1,200 MG in NS (IVPB) 250 ML IV ONE; +EPINEPHrine INJECTION 1 MG/ML AMP IM PRN; +POLY119P5 PO; +TRAM-42 PO; +diphenhydrAMINE 50 MG/ML INJ (BENADRYL) IV PRN
[2020-12-16 12:30] VITALS: BP 79/45
[2020-12-16 14:35] VITALS: BP 116/100
== END ==
LOC: INFUSION 12:36
PROVIDERS: ATTEND Emergency Medicine
DX: Z23 Encounter for immunization (principal); U07.1 COVID-19

== ENCOUNTER 2021-02-07 21:04 | Emergency (ER) | payer MEDICAID ==
[~2021-02-07] VITALS: Ht 190.5 cm; Wt 100.0 kg
[2021-02-07] MEDS ORDERED: NS IV 1000 ML 1,000 ML IV SCH (21:15)
--- NOTE | 2021-02-07 21:22 | ED Abdominal Pain ---
General Stated Complaint: DIZZY Source of Information: Patient Exam Limitations: No Limitations History of Present Illness Date Seen by Provider: Feb 07, 2021 Time Seen by Provider: 20:59 Initial Comments Patient to the ER by EMS from home with chief complaint he had just gotten home and sat down for about 15 minutes was up making something to eat and when he stood up to get a drink he felt dizzy like he was got past and had some pain in his lower mid abdomen and suprapubic region. He has had his appendix out in the past. He is not really had a bowel movement the past couple days and has not been drinking as much water as he probably should and feels a little dehydrated. No fevers chills nausea vomiting diarrhea. No other significant medical history. He takes some psychiatric medications. Family history sister and mother with some coronary disease. He has never had colonoscopy. The patient had COVID-19 on December 16. He has since recovered from his symptoms. Allergies and Home Medications Allergies Coded Allergies: No Known Drug Allergies (Unverified , 07/29/09) Patient Home Medication List Home Medication List Reviewed: Yes Buspirone HCl (Buspirone HCl) 15 Mg Tablet, 15 MG PO BID, (Reported) Entered as Reported by: DONOVAN AVERY on 08/23/19 0811 Hydrocodone/Acetaminophen (Hydrocodone-Acetamin 7.5-325) 1 Each Tablet, 1 EACH PO Q4H Prescribed by: BINA BUTTS on 09/17/19 1019 Polyethylene Glycol 3350 (Miralax) 119 Gm Powder, 119 GM PO BID PRN for CONSTIPATION-1ST LINE Prescribed by: MARK BEDOYA on 09/29/20 1541 Quetiapine Fumarate (Quetiapine Fumarate) 200 Mg Tablet, 400 MG PO HS, (Reported) Entered as Reported by: DONOVAN AVERY on 08/23/19 0811 Tramadol HCl (Ultram) 50 Mg Tablet, 50 MG PO Q6H PRN for PAIN-BREAKTHROUGH Prescribed by: MARK BEDOYA on 09/29/20 1542 Review of Systems Review of Systems Constitutional: No chills, No diaphoresis EENTM: No Blurred Vision, No Double Vision Respiratory: Denies Cough, Denies Shortness of Air Cardiovascular: Denies Chest Pain, Denies Irregular Heart Rate, Denies Lightheadedness Gastrointestinal: Constipated; Denies Diarrhea, Denies Nausea, Denies Vomiting Genitourinary: Denies Burning, Denies Discharge Musculoskeletal: No back pain, No joint pain Psychiatric/Neurological: Denies Anxiety, Denies Depressed All Other Systems Reviewed Negative Unless Noted: Yes Past [id number] Hx Patient Social History Tobacco Use?: No Use of E-Cig and/or Vaping dev: No Immunizations Up To Date Tetanus Booster (TDap): Less than 5yrs PED Vaccines UTD: Yes Seasonal Allergies Seasonal Allergies: No Past Medical History Surgeries: Yes (KELOID REMOVAL; BACK SURGERY) Abdominal, Orthopedic Respiratory: No Cardiac: Yes High Cholesterol, Irregular Heartbeat Neurological: No Reproductive Disorders: No Sexually Transmitted Disease: No HIV/AIDS: No Genitourinary: No Gastrointestinal: No Musculoskeletal: Yes (BACK SURGERY) Chronic Back Pain Endocrine: No HEENT: No Hearing Impairment: Denies Cancer: No Psychosocial: Yes Anxiety, Bipolar, Depression Integumentary: Yes (KELOIDS--S/P REMOVAL) Blood Disorders: No Family Medical History Patient reports no known family medical history. Other Conditions/Hx Physical Exam Vital Signs Vital Signs - First Documented 02/07/21 21:04 Temp 36.7 Pulse 98 Resp 16 B/P (MAP) 133/85 (101) Pulse Ox 98 O2 Delivery Room Air Capillary Refill : Height/Weight/BMI Height: 6'3.00" Weight: 265lbs. oz. [id number]; 25.00 BMI Method:Stated General Appearance: WD/WN, no apparent distress HEENT: PERRL/EOMI, pharynx normal Neck: full range of motion, normal inspection Respiratory: lungs clear, normal breath sounds, no respiratory distress, no accessory muscle use Cardiovascular: normal peripheral pulses, regular rate, rhythm Gastrointestinal: normal bowel sounds, non tender, soft, no organomegaly, other (No mesenteric signs) Extremities: normal range of motion, normal inspection, normal capillary refill Neurologic/Psychiatric: alert, normal mood/affect, oriented x 3 Skin: normal color, warm/dry Progress/Results/Core Measures Results/Orders Lab Results Laboratory Tests Test 02/07/21 21:12 Range/Units White Blood Count 6.9 4.3-11.0 10^3/uL Red Blood Count 4.35 4.30-5.52 10^6/uL Hemoglobin 12.4 L 13.3-17.7 g/dL Hematocrit 37 L 40-54 % Mean Corpuscular Volume 85 80-99 fL Mean Corpuscular Hemoglobin 29 25-34 pg Mean Corpuscular Hemoglobin Concent 33 32-36 g/dL Red Cell Distribution Width 13.5 10.0-14.5 % Platelet Count 287 130-400 10^3/uL Mean Platelet Volume 10.1 9.0-12.2 fL Immature Granulocyte % (Auto) 0 % Neutrophils (%) (Auto) 70 42-75 % Lymphocytes (%) (Auto) 22 12-44 % Monocytes (%) (Auto) 6 0-12 % Eosinophils (%) (Auto) 1 0-10 % Basophils (%) (Auto) 0 0-10 % Neutrophils # (Auto) 4.9 1.8-7.8 10^3/uL Lymphocytes # (Auto) 1.5 1.0-4.0 10^3/uL Monocytes # (Auto) 0.4 0.0-1.0 10^3/uL Eosinophils # (Auto) 0.0 0.0-0.3 10^3/uL Basophils # (Auto) 0.0 0.0-0.1 10^3/uL Immature Granulocyte # (Auto) 0.0 0.0-0.1 10^3/uL Sodium Level 138 135-145 MMOL/L Potassium Level 3.6 3.6-5.0 MMOL/L Chloride Level 107 98-107 MMOL/L Carbon Dioxide Level 19 L 21-32 MMOL/L Anion Gap 12 5-14 MMOL/L Blood Urea Nitrogen 13 7-18 MG/DL Creatinine 1.34 H 0.60-1.30 MG/DL Estimat Glomerular Filtration Rate 66 BUN/Creatinine Ratio 10 Glucose Level 127 H 70-105 MG/DL Calcium Level 9.3 8.5-10.1 MG/DL Corrected Calcium 9.2 8.5-10.1 MG/DL Total Bilirubin 0.6 0.1-1.0 MG/DL Aspartate Amino Transf (AST/SGOT) 32 5-34 U/L Alanine Aminotransferase (ALT/SGPT) 20 0-55 U/L Alkaline Phosphatase 90 40-136 U/L Total Protein 7.1 6.4-8.2 GM/DL Albumin 4.1 3.2-4.5 GM/DL Serum Alcohol < 10 <10 MG/DL My Orders Orders - [facility] Orthostatic Vital Signs (Adult (02/07/21 21:15) Ed Iv/Invasive Line Start (02/07/21 21:15) Ns Iv 1000 Ml (Sodium Chloride 0.9%) (02/07/21 21:15) Vital Signs/I&O 02/07/21 02/07/21 21:04 21:32 Temp 36.7 Pulse 98 87 92 119 Resp 16 B/P (MAP) 133/85 (101) 125/82 (96) 117/81 (93) 98/75 (83) Pulse Ox 98 O2 Delivery Room Air Progress Progress Note #1: Time: 21:23 Progress Note Benign abdominal exam. He does appear to be dry on clinical exam. We will get a set of orthostatic vital signs check some labs. Urinalysis given his suprapu bic discomfort. Differential includes dehydration, constipation, bowel obstruction, UTI Progress Note #2: Time: 00:15 Progress Note The patient's orthostatics were positive and he received some IV fluids. He does not want to produce a urine as he is ready to go home and feeling much better. Departure Impression Primary Impression: Orthostatic syncope Disposition: 01 HOME, SELF-CARE Condition: Stable Departure-Patient Inst. Decision time for Depature: 00:16 Referrals: [facility] (PCP/Family) Primary Care Physician Patient Instructions: Orthostatic Hypotension, Syncope (Fainting) (DC) Add. Discharge Instructions: Drink lots of fluids. You were dehydrated today and this will cause you to pass out. JC HLIL Feb 07, 2021 21:22
[2021-02-07 21:23] LABS: BASOPHILS % (AUTO) 0 % (0-10); EOSINOPHILS % (AUTO) 1 % (0-10); HEMATOCRIT 37 % (40-54); HEMOGLOBIN 12.4 g/dL (13.3-17.7); LYMPHOCYTES # (AUTO) 1.5 10^3/uL (1.0-4.0); LYMPHOCYTES % (AUTO) 22 % (12-44); MEAN CORPUSCULAR HEMOGLOBIN 29 pg (25-34); MEAN CORPUSCULAR HGB CONC 33 g/dL (32-36); MEAN CORPUSCULAR VOLUME 85 fL (80-99); MEAN PLATELET VOLUME 10.1 fL (9.0-12.2); MONOCYTES # (AUTO) 0.4 10^3/uL (0.0-1.0); MONOCYTES % (AUTO) 6 % (0-12); NEUTROPHILS # (AUTO) 4.9 10^3/uL (1.8-7.8); NEUTROPHILS % (AUTO) 70 % (42-75); PLATELET COUNT 287 10^3/uL (130-400); WHITE BLOOD COUNT 6.9 10^3/uL (4.3-11.0)
[2021-02-07 21:32] VITALS: BP_SYST 117; BP_SYST 125; BP_SYST 98; BP_DIAS 75; BP_DIAS 81; BP_DIAS 82
[2021-02-07 21:43] LABS: ALANINE AMINOTRANSFERASE 20 U/L (0-55); ALBUMIN 4.1 GM/DL (3.2-4.5); ALKALINE PHOSPHATASE 90 U/L (40-136); BILIRUBIN,TOTAL 0.6 MG/DL (0.1-1.0); BUN/CREATININE RATIO 10; CALCIUM 9.3 MG/DL (8.5-10.1); CARBON DIOXIDE 19 MMOL/L (21-32); CHLORIDE 107 MMOL/L (98-107); CREATININE SERUM 1.34 MG/DL (0.60-1.30); GFR ESTIMATED 66; GLUCOSE 127 MG/DL (70-105); POTASSIUM 3.6 MMOL/L (3.6-5.0); SODIUM 138 MMOL/L (135-145); TOTAL PROTEIN 7.1 GM/DL (6.4-8.2)
[2021-02-08 00:21] VITALS: BP 128/81
[2021-02-08 00:29] LABS: BILIRUBIN,URINE NEGATIVE (NEGATIVE); CLARITY,URINE CLEAR; COLOR,URINE YELLOW; GLUCOSE, URINE (UA) NEGATIVE (NEGATIVE); KETONES,URINE NEGATIVE (NEGATIVE); LEUKOCYTE ESTERASE ,URINE NEGATIVE (NEGATIVE); NITRITE,URINE NEGATIVE (NEGATIVE); PROTEIN,URINE NEGATIVE (NEGATIVE)
[2021-02-08 00:38] LABS: BACTERIA,URINE TRACE /HPF
[2021-02-08 00:41] LABS: AMPHETAMINE SCREEN, URINE POSITIVE (NEGATIVE); BARBITURATE SCREEN URINE NEGATIVE (NEGATIVE); BENZODIAZEPINES SCREEN URINE NEGATIVE (NEGATIVE); CANNABINOID SCREEN, URINE POSITIVE (NEGATIVE); COCAINE SCREEN URINE NEGATIVE (NEGATIVE); METHADONE STAT NEGATIVE (NEGATIVE); METHAMPHETAMINE SCREEN URINE S POSITIVE (NEGATIVE); OPIATE SCREEN URINE NEGATIVE (NEGATIVE); OXYCODONE STAT NEGATIVE (NEGATIVE); PROPOXYPHENE STAT NEGATIVE (NEGATIVE); TRICYCLIC ANTIDEPRESSANTS SCRE NEGATIVE (NEGATIVE)
== END 2021-02-08 00:21 | disposition home or self-care (01) ==
LOC: EDUNIT# 21:04 → ER 21:05
DX: R55 Syncope and collapse (principal); F41.9 Anxiety disorder, unspecified; F31.9 Bipolar disorder, unspecified; G89.29 Other chronic pain; M54.9 Dorsalgia, unspecified; Z86.16 Personal history of COVID-19; Z79.899 Other long term (current) drug therapy; Z79.891 Long term (current) use of opiate analgesic
CPT/HCPCS: 36415; 80053; 80306; 80320; 81000; 85025